=== PATIENT | female | born 1955 | race Caucasian/White ===

== ENCOUNTER 2016-11-09 16:18 | Emergency (ER) | payer OTHER ==
--- NOTE | 2016-11-09 16:54 | ED.PDOC ---
History of Present Illness - General Chief Complaint: Laceration Stated Complaint: Laceration to forehead Time Seen by Provider: 11/09/16 16:51 Source: patient Exam Limitations: no limitations - History of Present Illness Initial Comments: the patient is a 61-year-old female presenting to the emergency room secondary to a scalp laceration. She has a 1/2 inch scalp laceration with a minimal gape just above her hairline in her central forehead. It had apparently bled quite a bit before arrival. The patient had simply tripped and fallen and hit her head on the edge of a air-conditioner. No loss of consciousness. No neurological deficits. She does have a mild headache as would be expected. No bony crepitus underneath. No difficulties with ambulation. No nausea or vomiting. She is not on any blood thinners according to her. Timing/Duration: momentarily Severity: mild Improving Factors: nothing Worsening Factors: nothing Associated Symptoms: headaches Allergies/Adverse Reactions: Allergies Codeine Allergy (Verified 11/13/15 07:50) Other Causes itching dye Allergy (Uncoded 11/13/15 07:50) Rash Rash and makes her have a burning sensation inside Home Medications: Ambulatory Orders Lisinopril 10 mg PO DAILY #30 tab 11/02/14 Sertraline HCl [Zoloft] 100 mg PO DAILY 04/19/15 Temazepam 30 mg PO BEDTIME 04/19/15 amLODIPine BESYLATE [Norvasc] 10 mg PO DAILY 04/19/15 Gfxofnfdzztxh-Gboc-Bzfaqjhbhg [Fioricet] 1 ea PO Q8H PRN #21 tab 11/13/15 predniSONE [Prednisone] 20 mg PO DAILY #3 tab 11/13/15 Review of Systems - Review of Systems Constitutional: States: no symptoms reported EENTM: States: no symptoms reported Respiratory: States: no symptoms reported Cardiology: States: no symptoms reported Gastrointestinal/Abdominal: States: no symptoms reported Genitourinary: States: no symptoms reported Musculoskeletal: States: no symptoms reported Skin: States: see HPI Neurological: States: headache Endocrine: States: no symptoms reported All other Systems: No Change from Baseline Past Medical History (General) - Patient Medical History Hx Stroke: No Hx Congestive Heart Failure: No Hx Hypertension: Yes Hx Diabetes: No Hx Renal Disease: Yes - early stages Hx MRSA: No - Vaccination History Hx Tetanus, Diphtheria Vaccination: Yes Hx Influenza Vaccination: No - Social History Hx Tobacco Use: Yes - Quit 2009 Hx Alcohol Use: No Hx Substance Use: No Hx Substance Use Treatment: No Hx Depression: Yes - Female History Patient : No Family Medical History - Family History Mother Family History: Unknown Living Status: Physical Exam - Physical Exam General Appearance: Alert, Comfortable, No apparent distress Eye Exam: bilateral normal Ears, Nose, Throat: hearing grossly normal, normal ENT inspection, normal pharynx Neck: non-tender, full range of motion, supple Respiratory: chest non-tender, lungs clear, normal breath sounds, no respiratory distress, no accessory muscle use Cardiovascular/Chest: normal peripheral pulses, no edema Peripheral Pulses: radial,right: 2+, radial,left: 2+ Rectal Exam: deferred Extremity: normal range of motion, no pedal edema, normal capillary refill Neurologic: criminal attorney II-XII nml as tested, alert, normal mood/affect, oriented x 3 Skin Exam: other - see history of present illness Comments: Vital Signs - 24 hr 11/09/16 16:35 Temperature 97.5 F L Pulse Rate [ 88 Right Radial] Respiratory 18 Rate Blood Pressure 139/86 [Left Arm] O2 Sat by Pulse 94 L Oximetry Progress - Progress Progress: 11/09/16 16:54 the patient is a 61-year-old female that tripped and fell and sustained a 1/2 inch laceration to her central forehead just above the hairline. The wound is hemostatic at this time. no clinical evidence of concussion. It is cleaned with hydrogen peroxide. No repair is going to be required. She does have a mild headache that is consistent with the injury. She is not taking blood thinners. ER warnings were given for any worsening. She can apply a thin layer of antibiotic ointment one to 2 times daily for the next 3 days. Motrin can be used for discomfort. Departure - Departure Clinical Impression: Accidental laceration Disposition: Discharge to Home or Self Care Condition: Fair Departure Forms: ED Discharge - Pt. Copy, Patient Portal Self Enrollment Instructions: DI for Laceration Repair -- Simple Diet: regular diet Activity: increase activity as tolerated Referrals: Angela Blackburn NP [Primary Care Provider] - 1-2 Weeks Home Medications: Ambulatory Orders Lisinopril 10 mg PO DAILY #30 tab 11/02/14 Sertraline HCl [Zoloft] 100 mg PO DAILY 04/19/15 Temazepam 30 mg PO BEDTIME 04/19/15 amLODIPine BESYLATE [Norvasc] 10 mg PO DAILY 04/19/15 Fsptjghfclykc-Ufon-Dpxlqsheoc [Fioricet] 1 ea PO Q8H PRN #21 tab 11/13/15 predniSONE [Prednisone] 20 mg PO DAILY #3 tab 11/13/15 Additional Instructions: the patient is a 61-year-old female that tripped and fell and sustained a 1/2 inch laceration to her central forehead just above the hairline. The wound is hemostatic at this time. no clinical evidence of concussion. It is cleaned with hydrogen peroxide. No repair is going to be required. She does have a mild headache that is consistent with the injury. She is not taking blood thinners. ER warnings were given for any worsening. She can apply a thin layer of antibiotic ointment one to 2 times daily for the next 3 days. Motrin can be used for discomfort.
[2016-11-09 16:55] VITALS: BP 139/86; TEMP 97.5; O2SAT 94
[2016-11-09] MEDS ORDERED: NEOMYCIN-BACITRACIN-POLYMYXIN 0.9 GM UD TOP ONE (16:57)
== END 2016-11-09 17:00 | disposition home or self-care (01) ==
LOC: ER 16:18
DX: S01.01XA Laceration without foreign body of scalp, initial encounter (principal); N28.9 Disorder of kidney and ureter, unspecified; I10 Essential (primary) hypertension; F32.9 Major depressive disorder, single episode, unspecified; Z87.891 Personal history of nicotine dependence; Z88.6 Allergy status to analgesic agent; Z88.8 Allergy status to other drugs, medicaments and biological substances; Z79.899 Other long term (current) drug therapy; W01.198A Fall on same level from slipping, tripping and stumbling with subsequent striking against other object, initial encounter

== ENCOUNTER 2017-03-11 18:26 | Emergency (ER) | payer SELFPAY ==
--- NOTE | 2017-03-11 19:18 | ED.PDOC ---
History of Present Illness - General Chief Complaint: Respiratory Problem Stated Complaint: cough, chest congestion Time Seen by Provider: 03/11/17 18:58 Source: patient Exam Limitations: no limitations - History of Present Illness Initial Comments: Patient presents with a non-productive cough, sore throat, and ear congestion for four days. She denies fever. She says she sprayed oven tack cleaner four days ago and it started shortly after that. No similarly sick contacts. No other complaints. Timing/Duration: other - 4 days Severity: mild Improving Factors: nothing Worsening Factors: nothing Associated Symptoms: denies symptoms Allergies/Adverse Reactions: Allergies Codeine Allergy (Verified 11/13/15 07:50) Other Causes itching dye Allergy (Uncoded 11/13/15 07:50) Rash Rash and makes her have a burning sensation inside Home Medications: Ambulatory Orders Lisinopril 10 mg PO DAILY #30 tab 11/02/14 Sertraline HCl [Zoloft] 100 mg PO DAILY 04/19/15 Temazepam 30 mg PO BEDTIME 04/19/15 amLODIPine BESYLATE [Norvasc] 10 mg PO DAILY 04/19/15 Yzxzbdfsvkbww-Yxee-Mornactrhg [Fioricet] 1 ea PO Q8H PRN #21 tab 11/13/15 predniSONE [Prednisone] 20 mg PO DAILY #3 tab 11/13/15 Benzonatate Perles [Tessalon Perles] 100 mg PO Q8HR #20 cap 03/11/17 Review of Systems - Review of Systems Constitutional: States: no symptoms reported EENTM: States: see HPI Respiratory: States: see HPI Cardiology: States: no symptoms reported Gastrointestinal/Abdominal: States: no symptoms reported Genitourinary: States: no symptoms reported Musculoskeletal: States: no symptoms reported Skin: States: no symptoms reported Neurological: States: no symptoms reported Endocrine: States: no symptoms reported Hematologic/Lymphatic: States: no symptoms reported Past Medical History (General) - Patient Medical History Hx Stroke: No Hx Congestive Heart Failure: No Hx Hypertension: Yes Hx Diabetes: No Hx Gastroesophageal Reflux: Yes Hx Renal Disease: Yes - early stages Hx MRSA: No Surgical History: tonsillectomy, Hysterectomy, other - Vaccination History Hx Tetanus, Diphtheria Vaccination: Yes Hx Influenza Vaccination: No Hx Pneumococcal Vaccination: Yes - Social History Hx Tobacco Use: Yes - Quit 2009 Hx Alcohol Use: No Hx Substance Use: No Hx Substance Use Treatment: No Hx Depression: Yes - Female History Patient : No Family Medical History - Family History Mother Family History: Unknown Living Status: Physical Exam - Physical Exam General Appearance: Alert Ears, Nose, Throat: normal ENT inspection Neck: non-tender, full range of motion, supple Respiratory: lungs clear Cardiovascular/Chest: regular rate, rhythm Gastrointestinal/Abdominal: normal bowel sounds, non tender, soft Skin Exam: normal color Progress - Progress Progress: 03/11/17 20:42 CXR showed no acute disease. wbc 5.9. Likely viral URI. Patient given RX for Tessalon Perrles. Laboratory Tests 03/11/17 03/11/17 03/11/17 19:00 20:00 20:00 WBC 5.9 RBC 4.22 Hgb 11.5 L Hct 34.9 L MCV 82.6 MCH 27.2 MCHC 33.1 RDW 16.3 H Plt Count 211 MPV 7.9 Absolute Neuts (auto) 4.20 Absolute Lymphs (auto) 0.90 L Absolute Monos (auto) 0.60 Absolute Eos (auto) 0.20 Absolute Basos (auto) 0.00 Neutrophils % 71.0 Lymphocytes % 15.5 L Monocytes % 10.1 H Eosinophils % 3.0 Basophils % 0.4 Sodium 141 Potassium 3.4 L Chloride 114 H Carbon Dioxide 19 L Anion Gap 11.4 L BUN 26 H Creatinine 0.98 BUN/Creatinine Ratio 26.5 H Random Glucose 108 H Serum Osmolality 286.5 Calcium 9.0 Total Bilirubin 0.5 AST 25 ALT 20 Alkaline Phosphatase 75 Serum Total Protein 7.8 Albumin 3.6 Globulin 4.2 H Albumin/Globulin Ratio 0.9 L Group A Strep DNA Negative Departure - Departure Clinical Impression: Viral URI with cough Disposition: Discharge to Home or Self Care Condition: Good Departure Forms: ED Discharge - Pt. Copy, Patient Portal Self Enrollment Diet: resume usual diet Activity: increase activity as tolerated Referrals: Angela Blackburn NP [Primary Care Provider] - 1-2 Weeks Prescriptions: Benzonatate Perles [Tessalon Perles] 100 mg PO Q8HR #20 cap Home Medications: Ambulatory Orders Lisinopril 10 mg PO DAILY #30 tab 11/02/14 Sertraline HCl [Zoloft] 100 mg PO DAILY 04/19/15 Temazepam 30 mg PO BEDTIME 04/19/15 amLODIPine BESYLATE [Norvasc] 10 mg PO DAILY 04/19/15 Vfunprxazvplm-Ytbf-Wsbvtecahr [Fioricet] 1 ea PO Q8H PRN #21 tab 11/13/15 predniSONE [Prednisone] 20 mg PO DAILY #3 tab 11/13/15 Benzonatate Perles [Tessalon Perles] 100 mg PO Q8HR #20 cap 03/11/17 Additional Instructions: May use over the counter cough and cold formulas. Follow up with your primary doctor in 3 days if symptoms are not improving.
--- NOTE | 2017-03-11 20:39 | RAD ---
Chest two views INDICATION: Cough IMPRESSION: Normal heart size. Linear scarring or thickening along the minor fissure right mid to lower lung. No failure. 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 Lucency over the left hilum is related to the esophagus or the bronchus less likely. Remote healed left upper left posterior rib fracture. Electronically signed by: Carlos Balderas MD 03/11/2017 8:38 PM CDT Workstation: [id number]-
[2017-03-11] MEDS ORDERED: BENZONATATE PERLES 100 MG CAP PO ONE (20:42)
[2017-03-11 20:55] VITALS: BP 124/67; TEMP 98.3; O2SAT 97
== END 2017-03-11 20:55 | disposition home or self-care (01) ==
LOC: ER 18:26
DX: J06.9 Acute upper respiratory infection, unspecified (principal); Z88.6 Allergy status to analgesic agent; Z88.8 Allergy status to other drugs, medicaments and biological substances; Z79.899 Other long term (current) drug therapy; Z87.891 Personal history of nicotine dependence

== ENCOUNTER → 2017-08-24 | Outpatient (CLI) | payer OTHER | LOC: YCFC.O 16:07 | DX: I10 Essential (primary) hypertension (principal) ==

== ENCOUNTER 2018-04-26 13:46 | Inpatient (IN) | payer SELFPAY ==
--- NOTE | 2018-04-26 14:17 | ED.PDOC ---
History of Present Illness - General Chief Complaint: General Time Seen by Provider: 04/26/18 13:49 Source: patient, RN notes reviewed Additional Information: EVIDENTLY SHE HAS BEEN FEELING WEAK AND EATING ICE FOR THE PAST THREE MONTHS. LABS HAD BEEN ORDERED ABOUT 90 DAYS AGO BUT EVIDENTLY SHE DIDN'T HAVE ANY FUNDS UNTIL TODAY. HER NURSE PRACTITIONER CALLED HER AND TOLD HER TO COME TO THE ED SINCE HER HB WAS NOTED TO BE 6.1. SHE HAD A HN OF 11.7 IN Feb. SHE VOICES OCCASIONAL BLEEDING FROM THE VULVA WHENEVER SHE WIPES, MILD STREAKS ON THE TOILET PAPER. DENIES ANY RECTAL BLEEDING. THE PATIENT DENIES ANY WEIGHT LOSS - History of Present Illness Timing/Duration: other - THREE MONTHS Severity: moderate Improving Factors: nothing Worsening Factors: nothing Associated Symptoms: malaise, weakness Allergies/Adverse Reactions: Allergies Codeine Allergy (Verified 11/13/15 07:50) Other Causes itching dye Allergy (Uncoded 11/13/15 07:50) Rash Rash and makes her have a burning sensation inside Home Medications: Ambulatory Orders Lisinopril 10 mg PO DAILY #30 tab 11/02/14 Sertraline HCl [Zoloft] 100 mg PO DAILY 04/19/15 Temazepam 30 mg PO BEDTIME 04/19/15 amLODIPine BESYLATE [Norvasc] 10 mg PO DAILY 04/19/15 Myjwdsobqmlgd-Bwwv-Qvvmnthklb [Fioricet] 1 ea PO Q8H PRN #21 tab 11/13/15 predniSONE [Prednisone] 20 mg PO DAILY #3 tab 11/13/15 Benzonatate Perles [Tessalon Perles] 100 mg PO Q8HR #20 cap 03/11/17 Review of Systems - Review of Systems Constitutional: States: malaise, weakness EENTM: States: other - NOSE BLEEDS FOR SEVERAL MONTHS Respiratory: States: no symptoms reported Cardiology: States: no symptoms reported Gastrointestinal/Abdominal: States: no symptoms reported Genitourinary: States: no symptoms reported Musculoskeletal: States: back pain, joint pain, muscle pain Skin: States: no symptoms reported Neurological: States: no symptoms reported Endocrine: States: no symptoms reported Hematologic/Lymphatic: States: no symptoms reported, anemia Past Medical History (General) - Patient Medical History Hx Stroke: No Hx Congestive Heart Failure: No Hx Hypertension: Yes Hx Diabetes: No Hx Gastroesophageal Reflux: Yes Hx Renal Disease: Yes - early stages Hx MRSA: No - Vaccination History Hx Tetanus, Diphtheria Vaccination: Yes Hx Influenza Vaccination: No Hx Pneumococcal Vaccination: Yes - Social History Hx Tobacco Use: Yes - Quit 2009 Hx Alcohol Use: No Hx Substance Use: No Hx Substance Use Treatment: No Hx Depression: Yes - Female History Patient : No Family Medical History - Family History Mother Family History: Unknown Living Status: Physical Exam - Physical Exam General Appearance: Alert, No apparent distress, Well Developed, Well Groomed Eye Exam: bilateral normal, bilateral abnormal EOM Ears, Nose, Throat: normal ENT inspection, normal pharynx, other - ON NASAL SPECULLUM EXAM THERE IS A CRUSTED AREA ON THE FLOOR OF THE LEFT NOSTRIL. AREA THAT SHE VOICES HAS BEEN BLEEDING NOW FOR ABOUT THREE MONTHS. Neck: full range of motion Respiratory: chest non-tender, lungs clear, normal breath sounds, no respiratory distress, no accessory muscle use Cardiovascular/Chest: normal peripheral pulses, no edema, no gallop, no JVD, no murmur Peripheral Pulses: radial,right: 2+, radial,left: 2+ Gastrointestinal/Abdominal: normal bowel sounds, non tender, soft, no organomegaly, no pulsatile mass Rectal Exam: normal exam, normal rectal tone, other - STOOL IS DARK BROWN Back Exam: normal inspection, no CVA tenderness, no vertebral tenderness Extremity: normal range of motion, non-tender, normal inspection, no pedal edema , no calf tenderness Neurologic: no motor/sensory deficits, alert Skin Exam: pallor Lymphatic: no adenopathy Comments: VAGINAL EXAM -BIMANUAL IS PERFORMED. EXTERNAL GENITALIA OF NORMAL CHARACTERISTICS. BIMANUAL W/O ANY MASSES. NO BLOOD NOTED. Progress - Progress Progress: 04/26/18 15:30 04/26/18 15:32 I HAVE DISCUSSED THE CASE WITH LIONEL MAXWELL NP, WILL ADMIT FOR TRANSFUSION. Departure - Departure Clinical Impression: Anemia Qualifiers: Anemia type: iron deficiency Iron deficiency anemia type: unspecified iron deficiency Qualified Code(s): D50.9 - Iron deficiency anemia, unspecified Time of Disposition: 15:36 Disposition: Admit Patient Condition: Fair Referrals: Gaudencio Vu MD [Primary Care Provider] - 1-2 Weeks Home Medications: Ambulatory Orders Lisinopril 10 mg PO DAILY #30 tab 11/02/14 Sertraline HCl [Zoloft] 100 mg PO DAILY 04/19/15 Temazepam 30 mg PO BEDTIME 04/19/15 amLODIPine BESYLATE [Norvasc] 10 mg PO DAILY 04/19/15 Mlksksdierjed-Ewrq-Ddenkkpnll [Fioricet] 1 ea PO Q8H PRN #21 tab 11/13/15 predniSONE [Prednisone] 20 mg PO DAILY #3 tab 11/13/15 Benzonatate Perles [Tessalon Perles] 100 mg PO Q8HR #20 cap 03/11/17 Decision To Admit - Decistion To Admit Decision to Admit Reason: Admit from ER Decision to Admit Date: 04/26/18 Decision to Admit Time: 15:35
--- NOTE | 2018-04-26 14:46 | RAD ---
EXAM DESCRIPTION: Chest,1 View CLINICAL HISTORY: SOB COMPARISON: March 11, 2017 IMPRESSION: Single AP portable upright view of the chest shows mild enlargement of the cardiac silhouette without pulmonary vascular congestion. Lungs are normally aerated without acute appearing infiltrate or consolidation. Elevation of the right hemidiaphragm is seen. Mild linear scarring or atelectasis in the right infrahilar region is slightly improved from previous. 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
[2018-04-26] MEDS ORDERED: SODIUM CHLORIDE 0.9% 500ML 500 ML ONE (16:19)
--- NOTE | 2018-04-26 17:19 | HP ---
SUPERVISING PHYSICIAN: JOSH MENDEZ MD CHIEF COMPLAINT: Generalized weakness, shortness of breath. HISTORY OF PRESENT ILLNESS: Ms. Matthews is a 59 year-old female patient that notes she has not been feeling very well, being weak, short of breath and craving ice for a little over 3 months. She had some labs done initially about 90 days previous. They were ordered but she did not have the money to have them done and states she had the labs repeated as she had the funds and those labs were found to be significantly abnormal with hemoglobin of 6.1 and hematocrit 20.3. The Nurse Practitioner at the clinic called the patient at that time and had her report to the Emergency Room for further evaluation and workup. It was noted on the last lab in February 2017 her hematocrit was 11.7. She denied any gross blood per rectum or any nausea or vomiting but notes she has had some bleeding from her vulva when she wipes, there are streaks on the toilet paper but denies any rectal bleeding or any weight loss. She does note she has been having some epigastric discomfort over the 90-day period and at times had some what she referred to as dark, coffee- ground stools. Continuation of her workup in the Emergency Room showed she had a significant iron deficiency with iron of 16 and a TIBC of 41 with ferritin low at 5.9. Other chemistries include a TSH and Free T4 that were normal. She was showing a low potassium of 3 and a slight elevation of AST of 50. She did have one occult blood stool that was positive in the Emergency Room. Vital signs showed she was stable with a pulse of 102, blood pressure showing some elevation at 153/92 with respiratory rate 18, saturation 97% on room air. The patient also notes she has had a sore in her left nostril for well over a month or so that has been bleeding at times and she felt it was probably related to a sinus infection. She had type and cross for transfusion and is now going to be admitted to the medical/surgical floor for further ongoing treatment and evaluation. Further note on examination is that the patient has never had an extensive workup. She has never had a colonoscopy but she has a significant family history of cancers. She is admitted to the medical/surgical floor in stable condition. PAST MEDICAL HISTORY: 1. Depression. 2. Hypertension. PAST SURGICAL HISTORY: 1. Total hysterectomy approximately 40 years previously. 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 3. Tonsils and adenoids. CURRENT MEDICATIONS: 1. Benadryl 100 mg at bedtime. 2. Amlodipine. 3. Temazepam 30 mg at bedtime. 4. Zoloft 150 m g at bedtime. 5. Melatonin 10 mg at bedtime, ALLERGIES: CODEINE. FAMILY HISTORY: Mother at age 53 with cancer, she notes to the roof of the mouth. Dad from kidney cancer. He also had chronic obstructive pulmonary disease and cardiovascular disease. She has a brother who has cancer that is unknown. He has one sister who has liver failure and is anemic. She has 3 children. One son is healthy, second youngest daughter has congestive heart failure and thyroid cancer. Her youngest child has lupus. SOCIAL HISTORY: The patient lives in [place]. She is engaged. She is retired. 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 She did smoke for over 15 to 20 years, half pack a day but quit smoking 9 years previously. She notes she does drink occasional alcohol, she says one or two drinks. REVIEW OF SYSTEMS: CONSTITUTIONAL: Denies any fevers, chills but notes general malaise and increasing weakness. HEENT: She does have frequent nose bleeds on the left nostril. Has been going on for several months. Denies any nasal congestion, ear aches, sore throat. RESPIRATORY: Denies any coughing, wheezing, but does have some shortness of breath with exertion. CARDIOVASCULAR: Denies any chest pains, palpitations or syncopal episodes. GASTROINTESTINAL: Denies any nausea or vomiting, diarrhea, but notes that she has had some what she describes as coffee ground-like stools periodically for over the last 90 days with no bright red blood. GENITOURINARY: She denies any urinary symptoms, dysuria, hematuria or polyuria. MUSCULOSKELETAL: Notes that she has had some chronic back pain, just general malaise, joint pain and muscle pains. INTEGUMENT: Denies any rashes, sores other than the sore that she notes that is in her left nostril that has been present for well over 2 to 3 months that bleeds periodically. NEUROLOGIC: Denies any ataxia, seizures, paresthesias or syncopal episodes. HEMATOLOGIC: As noted in History of Present Illness, anemia with iron deficiency but denies any bleeding episodes, tender lymph glands. She does note that she has been craving ice and has a lot of restless legs. PHYSICAL EXAMINATION: VITAL SIGNS: On admission, temperature 98.8, pulse 102, blood pressure 153/92, respirations 18, satting 97% on room air. Admission weight is 75.3 kg. GENERAL: The patient appears to be comfortable in no acute distress. She is frail in appearance and appears to be well hydrated. HEENT: Tympanic membranes were clear bilaterally. Oropharynx was pink and moist with no lesions. Nasal exam shows a crusted area on the floor of the left nostril that she notes has been bleeding for about 3 months. NECK: Full range of motion, supple, non-tender. CHEST: Lungs were clear to auscultation bilaterally without rhonchi, wheezing or rales. CARDIOVASCULAR: Regular rate and rhythm without any appreciable gallops or rubs , but there is a systolic murmur heard 2/6. ABDOMEN: Soft, non-tender. Positive bowel sounds. No rebound tenderness. EXTREMITIES: No cyanosis, clubbing, or edema. Radial pulses were 2+ bilaterally. There was notable increase in size of the left leg compared to the right but no erythema. On the popliteal area there is a notable tender area that is consistent with probable Samaniego's cyst pending further evaluation with ultrasound. RECTAL: Exam was deferred. It was done in the E. R. by Dr. Wilson who noted normal rectal tone and dark stools on exam. BACK: Atraumatic with no CVA tenderness. No vertebral tenderness. NEUROLOGIC: She is alert and oriented times three. Cranial nerves II-XII are grossly intact. Facial features were symmetrical. Extraocular movements are within normal limits. There is no notable nystagmus. She is alert and oriented times three.. SKIN: She is pale, warm and dry. LYMPHATICS: No notable adenopathy. GENITOURINARY: Vaginal exam performed bimanual by Dr. Wilson noted to be normal external genital characteristics without any masses. No blood was noted. LABORATORY: CBC done in the clinic prior to admission showed white count 4,400 with hemoglobin initially of 6.1, hematocrit 20.3 with RBC indices indicating a microcytic/hypochromic presentation, platelets 185,000. Differential showed to be without a left shift. Coagulation studies showed PT 12.0, PTT 24.1, D-dimer was elevated at 1.12. Initial chemistries showed low potassium at 3.4, carbon dioxide 19, BUN 10, creatinine 0.89, serum osmolality 271, calcium 8.9, lactic acid 1.8, magnesium 1.3. Iron studies showed iron of 16, TIBC of 41, iron saturation 3.3 with a low ferritin at 5.9. Liver functions showed just a slightly elevated AST at 46. TSH was 2.02. She had 1 occult stool blood in the E. R. that was positive. RADIOLOGY: Chest x-ray single view chest showed lungs normally aerated with no acute-appearing infiltrate or consolidations. There was elevation of the right hemidiaphragm with mild linear scarring or atelectasis of the right infrahilar region which is slightly improved from previous on 03/11/17. Lower extremity ultrasound was pending of the left leg. CT of the chest was pending. ASSESSMENT: 1. Symptomatic anemia with a microcytic/hypochromic presentation consistent with iron deficiency anemia confirmed with an iron workup including low ferritin levels, uncertain etiology but possibly related to chronic blood loss from concern for a possible upper gastrointestinal bleed. 2. Elevated D-dimer, uncertain etiology, although the patient does have lower extremity left leg larger than the right with some pain on palpation awaiting further workup with ultrasound and CT of the chest. 3. Electrolyte imbalance to include hypokalemia with potassium initially of 3.4 on admission. 4. Elevated liver enzymes including AST, uncertain etiology. Continue to monitor. 5. Frequent nose bleeds notable on the left with an area on examination concerning for malignant changes needing close followup in the outpatient setting. PLAN: The patient is going to be admitted to the Medical/Surgical floor for initiation of transfusions with 2 units of packed red blood cells initially. Will recheck an H&H in the morning. Will follow occult bloods and should she show a drop dramatically on her H&H or any other signs or symptoms, certainly will need to get a consultation with GI, however GI is not, I do not believe, available in the morning and she will need close followup as an outpatient. Will replace her potassium as needed. Will hold off on any Lovenox until we can be reassured of acute GI bleed awaiting ultrasound of the lower extremity and a CT of the chest. Will resume her home medication as appropriate once they have been updated and verified. Until the patient can transition to outpatient management, will continue to monitor and treat as needed. #[id number] [facility]
[2018-04-26] MEDS ORDERED: ACETAMINOPHEN 325 MG TAB PO ONE (17:39)
[2018-04-26] MEDS ORDERED: diphenhydrAMINE HCL 50 MG/ML VIAL IV ONE (17:39)
[2018-04-26] MEDS ORDERED: SODIUM CHLORIDE 0.9% (FLUSH) 10 ML SYG IV PRN (17:40)
[2018-04-26] MEDS ORDERED: ONDANSETRON INJ 4 MG/2 ML VIAL IV PRN (17:40)
[2018-04-26] MEDS ORDERED: ACETAMINOPHEN 325 MG TAB PO PRN (17:40)
[2018-04-26] MEDS ORDERED: IV SET AND CAP CHANGE INJ INJ SCH (18:00)
[2018-04-26] MEDS ORDERED: SODIUM CHLORIDE 0.9% 500ML 500 ML IVS SCH (18:00)
[2018-04-26] MEDS ORDERED: PANTOPRAZOLE INJECTION 80 MG in SODIUM CHLORIDE 0.9% 100ML 80 ML IVPB ONE (19:44)
[2018-04-26] MEDS ORDERED: PANTOPRAZOLE SODIUM IV 40 MG VIAL ONE (20:20)
[2018-04-26] MEDS ORDERED: SODIUM CHLORIDE 0.9% 100ML 100 ML IVPB ONE (20:20)
[2018-04-26] MEDS ORDERED: TEMAZEPAM 15 MG CAP ONE (20:21)
[2018-04-26] MEDS ORDERED: POTASSIUM CHLORIDE 20 MEQ TAB PO ONE (20:51)
[2018-04-26] MEDS ORDERED: NON-FORMULARY MEDICATION 1 EA MIS (Temazepam [Temazepam] 30 MG) PO SCH (21:00)
[2018-04-26] MEDS ORDERED: NON-FORMULARY MEDICATION 1 EA MIS (Melatonin [Melatonin] 10 MG) PO SCH (21:00)
[2018-04-26] MEDS: SERTRALINE HCL 50 MG TAB PO SCH (21:37)
[2018-04-27] MEDS ORDERED: MAGNESIUM SULFATE PREMIX 2GM 2 GM in PREMIX BAG 1 BAG IVPB ONE (02:18)
[2018-04-27] MEDS ORDERED: MAGNESIUM SULFATE PREMIX 2GM 50 ML IVPB ONE (02:22)
[2018-04-27] MEDS: OMEPRAZOLE CAP 20 MG CAP PO SCH (06:25)
[2018-04-27] MEDS: amLODIPine BESYLATE 5 MG TAB PO SCH (08:44)
--- NOTE | 2018-04-27 12:22 | US ---
EXAM DESCRIPTION: Venous,Lower Extremity LT CLINICAL HISTORY: LLE edema and pain COMPARISON: None Available. TECHNIQUE: Left lower extremity venous duplex FINDINGS: Doppler evaluation of the left lower extremity deep veins was performed. Normal color flow is seen in the common femoral, superficial femoral, profunda femoral and greater saphenous veins. Normal flow is seen in the popliteal vein and veins below the knee in the calf. Normal venous compressibility and flow augmentation. Posterior popliteal Samaniego's cyst is large measuring 6.8 x 2.8 x 4.7 cm. IMPRESSION: Negative for evidence of deep venous thrombosis on left lower extremity venous Doppler sonogram. Large popliteal Samaniego's cyst. Electronically signed by: Lai Ybarra MD 04/27/2018 12:21 PM MECHANICAL SHOVEL OPERATOR
[2018-04-27] MEDS: SERTRALINE HCL 50 MG TAB PO SCH (19:49)
[2018-04-27] MEDS ORDERED: ALUM & MAG HYDROX-SIMETHICONE 30 ML UD PO PRN (20:45)
[2018-04-27] MEDS ORDERED: CALCIUM CARBONATE (ANTACID) 500 MG CHEWABLE TAB PO PRN (20:45)
[2018-04-27] MEDS ORDERED: MELATONIN 3 MG TAB PO SCH (21:00)
[2018-04-27] MEDS ORDERED: PANTOPRAZOLE SODIUM IV 40 MG VIAL IV SCH (21:00)
[2018-04-27] MEDS ORDERED: TEMAZEPAM 15 MG CAP PO SCH (21:00)
[2018-04-28] MEDS: OMEPRAZOLE CAP 20 MG CAP PO SCH (05:41)
[2018-04-28 06:58] VITALS: TEMP 98
[2018-04-28] MEDS ORDERED: SODIUM CHLORIDE 0.9% 500ML 0 ML ONE (07:44)
--- NOTE | 2018-04-28 08:36 | PN ---
DATE: 04/27/18 SUPERVISING PHYSICIAN: Erasmo Corea MD SUBJECTIVE: The patient received 2 units of packed red blood cells without any complications. She notes she feels a little bit better this morning. She has reported no additional stools. I was called last night that she was having some severe leg cramps along with some restless legs but responded well to magnesium replacement. OBJECTIVE: VITAL SIGNS: Temperature 98.3, pulse 79, blood pressure 130/77, respirations 16 , saturation 95% on room air. Weight 75.3 kg. I&O: Output has not been measured. GENERAL: This morning the patient appears a little bit more pink, she is alert and no quite as nervous. CHEST: Lungs clear to auscultation. HEART: Regular rate and rhythm with continued systolic murmur heard. ABDOMEN: Soft, non- tender, positive bowel sounds. EXTREMITIES: Without any cyanosis, clubbing, or edema, although the left leg is larger than the right and there is an area of discomfort to the popliteal area that is consistent with a Samaniego's cyst. [id number]: She is alert and oriented x3. LABORATORY: Repeat H&H showed hemoglobin 8.2 and hematocrit 26.8 and again at 1700 today, H&H showed essentially the same with 8.1 hemoglobin and 26.5 hematocrit. Chemistries: She did show a low magnesium of 1.3 but with replacement it normalized to 2.0. Electrolytes today show a potassium of 3.3, otherwise within normal limits. RADIOLOGY: Lower extremity ultrasound of the left leg was without any evidence of deep venous thrombosis. A large popliteal Samnaiego's cyst was noted. ASSESSMENT: 1. Symptomatic anemia with a microcytic/hypochromic presentation consistent with iron deficiency anemia confirmed with an iron workup including low ferritin levels, uncertain etiology but possibly related to chronic blood loss from concern for a possible upper gastrointestinal bleed. 2. Elevated D-dimer, uncertain etiology, although the patient does have lower extremity left leg larger than the right with some pain on palpation awaiting further workup with ultrasound and CT of the chest. 3. Electrolyte imbalance to include hypokalemia with potassium initially of 3.4 on admission. 4. Elevated liver enzymes including AST, uncertain etiology. Continue to monitor. 5. Frequent nose bleeds notable on the left with an area on examination concerning for malignant changes needing close followup in the outpatient setting. PLAN: Will repeat hemoglobin and hematocrit in the morning and again, should it show a significant decrease will call for a GI consultation and hopefully be able to transfer to [facility] for further evaluation with GI specialist. Given the concern for possible transfer tomorrow, I will need to defer GI workup and will make the patient n.p.o. overnight. If she stays stable, will anticipate discharging home tomorrow with continuation for further workup. Consideration for a third unit if showing no acute loss to insure the patient is no longer symptomatic prior to discharge. She will need to be started on some iron therapy at discharge as well as she will need a thorough workup soon after discharge to include a colonoscopy and further evaluation, possibly hematology and further evaluation of the questionable area in her left nostril with ENT. Again, will anticipate hopefully discharging tomorrow. Will await evaluation of hemoglobin and hematocrit. Until then, we will continue to monitor and treat as needed. #[id number] MTDD
[2018-04-28] MEDS: amLODIPine BESYLATE 5 MG TAB PO SCH (08:39)
[2018-04-28] MEDS ORDERED: PANTOPRAZOLE SODIUM IV 40 MG VIAL IV SCH (09:30)
[2018-04-28 10:10] VITALS: BP 144/83; O2SAT 93
--- NOTE | 2018-05-05 21:15 | DS ---
SUPERVISING PHYSICIAN: Erasmo Corea M.D. ADMISSION DIAGNOSIS: 1. Symptomatic anemia with a microcytic/hypochromic presentation consistent with iron deficiency anemia confirmed by iron workup with low ferritin levels, etiology uncertain but possibly related to chronic blood loss with concerns for possible upper gastrointestinal bleed. 2. Elevated D-dimer, uncertain etiology, although the patient does have lower extremity left leg larger than the right with pain on palpation, awaiting ultrasound on admission and past CT of the chest. 3. Electrolyte imbalance to include hypokalemia. 4. Elevated liver enzymes including AST, uncertain etiology. 5. Frequent nose bleeds notable on the left with an area on examination concerning for malignant changes needing close followup in the outpatient setting. DISCHARGE DIAGNOSIS: 1. Symptomatic anemia with a microcytic/hypochromic presentation consistent with iron deficiency anemia confirmed with an iron workup needing upper and lower scopes for concerns for gastrointestinal bleed. 2. Elevated D-dimer, uncertain etiology, with left lower extremity larger than the right with some palpation with left lower extremity workup with Doppler showing a large Samaniego's cyst but no deep venous thrombosis. Unable to perform CTA of the chest due to IV contrast allergy with the patient not showing any signs of acute pulmonary compromise. 3. Electrolyte imbalance to include hypokalemia with improvement with fluid. 4. Elevated liver enzymes including AST, uncertain etiology, improving with fluids. 5. History of frequent nose bleeds on the left with an area on examination concerning for possible malignant changes needing close followup in the outpatient setting. REASON FOR HOSPITALIZATION: Ms. Matthews is a 59 year-old female patient that notes she has not been feeling very well, being weak, short of breath and craving ice for a little over 3 months. She had some labs done initially about 90 days previous. They were ordered but she did not have the money to have them done and states she had the labs repeated as she had the funds and those labs were found to be significantly abnormal with hemoglobin of 6.1 and hematocrit 20.3. The Nurse Practitioner at the clinic called the patient at that time and had her report to the Emergency Room for further evaluation and workup. It was noted on the last lab in February 2017 her hematocrit was 11.7. She denied any gross blood per rectum or any nausea or vomiting but notes she has had some bleeding from her vulva when she wipes, there are streaks on the toilet paper but denies any rectal bleeding or any weight loss. She does note she has been having some epigastric discomfort over the 90-day period and at times had some what she referred to as dark, coffee- ground stools. Continuation of her workup in the Emergency Room showed she had a significant iron deficiency with iron of 16 and a TIBC of 41 with ferritin low at 5.9. Other chemistries include a TSH and Free T4 that were normal. She was showing a low potassium of 3 and a slight elevation of AST of 50. She did have one occult blood stool that was positive in the Emergency Room. Vital signs showed she was stable with a pulse of 102, blood pressure showing some elevation at 153/92 with respiratory rate 18, saturation 97% on room air. The patient also notes she has had a sore in her left nostril for well over a month or so that has been bleeding at times and she felt it was probably related to a sinus infection. She had type and cross for transfusion and is now going to be admitted to the medical/surgical floor for further ongoing treatment and evaluation. Further note on examination is that the patient has never had an extensive workup. She has never had a colonoscopy but she has a significant family history of cancers. She is admitted to the medical/surgical floor in stable condition. LABORATORY: Initial hemoglobin on admission was 6.1 and 20.3 with microcytic/ hypochromic RBC indices, platelet count 185,000. Differential showed to be without a left shift. After 2 units of packed red blood cells, initial hemoglobin went up to 8.2 and 26.8, but prior to discharge and transfer to [facility] it dropped to 7.8 and 25.4. Coagulation studies showed PT of 12.0 with PTT of 24.1, INR 1.12. Chemistries showed low potassium at 3.4, BUN 10, creatinine 0.89, calcium 8.9. Iron studies showed low iron of 16, TIBC of 41 with ferritin 5.9. TSH normal at 2.02. AST was elevated at 50. Prior to discharge potassium was showing to be 3.0. She had 1 occult stool blood that was positive. No microbiology specimens were submitted. RADIOLOGY: Chest x-ray initially in the E. R. per radiology interpretation showed lungs normally aerated without any acute-appearing infiltrate or consolidations. Just a slightly elevated right hemidiaphragm with some mild linear scarring, atelectasis in the right hilar region which is slightly improved from previous of 03/02/17. She also had a lower extremity Doppler of the left leg which showed negative evidence of deep venous thrombosis but a large popliteal Samaniego's cyst. HOSPITAL COURSE: Ms. Matthews was admitted from the [facility] on 04/27/18 for symptomatic anemia with severe iron deficiency and concerns for possible upper GI bleed. She was given 2 units of packed red blood cells and showed no complications, however was showing slowly dropping H&H. Given the patient's history and onset of symptoms, I contacted GI in [place], Dr. Mckeon, who recommended the patient be transferred for upper and lower GI series. The patient was accepted by the hospitalist and was to be transferred to [facility] for further evaluation and higher level of care with the services unavailable at [facility], including gastrointestinal specialist. She was showing to be stable. She was on a clear liquid diet and was showing to be hemodynamically stable. Vital signs at discharge showed temperature 98, pulse 80, blood pressure 144/83, respirations 93% on room air. PLAN: Ms. Matthews was transferred to [facility] in [place] to the services of the hospitalist for consultation with gastrointestinal services, accepted in stable condition. The patient was on a clear liquid diet. She was transferred by ground. DISPOSITION: Transferred to [facility]. Condition on discharge was stable but guarded. #[id number] MTDD
== END 2018-04-28 11:19 | disposition short-term general hospital (02) | DRG 812 ==
LOC: ER 13:46 → MS 17:17 → OBSVTOIN 17:17
PROVIDERS: ADMIT Nurse Practitioner Family; ATTEND Nurse Practitioner Family
PROC: 30253N1 (ICD-10-PCS; principal; 2018-04-26)
DX: D50.0 Iron deficiency anemia secondary to blood loss (chronic) (principal); M71.22 Synovial cyst of popliteal space [Baker], left knee; Z91.041 Radiographic dye allergy status; E87.6 Hypokalemia; R04.0 Epistaxis; F32.9 Major depressive disorder, single episode, unspecified; I10 Essential (primary) hypertension

== ENCOUNTER → 2018-04-26 | Outpatient (CLI) | payer OTHER | LOC: YCFC.O 11:46 | PROVIDERS: ATTEND Nurse Practitioner Family | DX: Z13.29 Encounter for screening for other suspected endocrine disorder (principal); I10 Essential (primary) hypertension ==

== ENCOUNTER → 2018-05-16 | Outpatient (CLI) | payer SELFPAY | LOC: LAB.O 16:17 | PROVIDERS: ATTEND Nurse Practitioner Family | DX: D50.0 Iron deficiency anemia secondary to blood loss (chronic) (principal); R06.02 Shortness of breath ==

== ENCOUNTER 2018-06-23 14:06 | Emergency (ER) | payer SELFPAY ==
--- NOTE | 2018-06-23 14:20 | ED.PDOC ---
History of Present Illness - General Chief Complaint: General Stated Complaint: weakness Time Seen by Provider: 06/23/18 14:19 Exam Limitations: no limitations - History of Present Illness Initial Comments: Liliana Matthews 63 y/o female ststed that she had been feeling weak,sleeping a lot and not having good appetite recently.She was admitted several months ago for anemia and was sent to [facility]-- and had work up done but unable to find out the cause of her anemia.denies hematemesis,melena,hemoptysis,chronic cough,weight loss.Also had been having both legs swelled up but no pain. Timing/Duration: other - see hpi Severity: moderate Improving Factors: nothing Worsening Factors: nothing Associated Symptoms: other - see hpi Allergies/Adverse Reactions: Allergies Codeine Allergy (Verified 04/26/18 18:04) Other Causes itching IV Contrast Allergy (Severe, Uncoded 04/26/18 21:34) Anaphylaxis per patient, SOB, throat closes dye Allergy (Uncoded 11/13/15 07:50) Rash Rash and makes her have a burning sensation inside Home Medications: Ambulatory Orders Sertraline HCl [Zoloft] 150 mg PO BEDTIME 04/19/15 Temazepam 30 mg PO BEDTIME 04/19/15 amLODIPine BESYLATE [Norvasc] 10 mg PO DAILY 04/19/15 Melatonin 20 mg PO BEDTIME 04/26/18 diphenhydrAMINE HCL [Benadryl] 100 mg PO BEDTIME 04/26/18 Fe Fumarate-Fe Polysaccharide- [Fusion 65-65-25-30 mg] 1 cap PO DAILY 06/23/18 Nitrofurantoin Monohydrate Mac [Macrobid] 100 mg PO BID 5 Days #10 capsule 06/23/18 Review of Systems - Review of Systems Constitutional: States: weakness EENTM: States: no symptoms reported Respiratory: States: no symptoms reported Cardiology: States: no symptoms reported Gastrointestinal/Abdominal: States: no symptoms reported Genitourinary: States: no symptoms reported Musculoskeletal: States: no symptoms reported Skin: States: no symptoms reported Neurological: States: no symptoms reported Endocrine: States: no symptoms reported Hematologic/Lymphatic: States: see HPI, anemia Past Medical History (General) - Patient Medical History Hx Seizures: No Hx Stroke: No Hx Asthma: No Hx of COPD: No Hx Congestive Heart Failure: No Hx Pacemaker: No Hx Hypertension: Yes Hx Diabetes: No Hx Gastroesophageal Reflux: Yes Hx Renal Disease: Yes - early stages Hx MRSA: No Surgical History: other - hysterectomy,renal artery aneurysm repair - Vaccination History Hx Tetanus, Diphtheria Vaccination: Yes Hx Influenza Vaccination: No Hx Pneumococcal Vaccination: Yes - Social History Hx Tobacco Use: Yes - Quit 2009 Hx Alcohol Use: No Hx Substance Use: No Hx Substance Use Treatment: No Hx Depression: Yes Hx Physical Abuse: No Hx Emotional Abuse: No - Female History Patient : No Family Medical History - Family History Mother Family History: Unknown Living Status: Physical Exam - Physical Exam General Appearance: Alert, Comfortable, No apparent distress Eye Exam: bilateral normal Ears, Nose, Throat: hearing grossly normal, normal ENT inspection Neck: non-tender, supple, normal inspection Respiratory: chest non-tender, lungs clear, normal breath sounds Cardiovascular/Chest: normal peripheral pulses, regular rate, rhythm, no murmur Peripheral Pulses: radial,right: 2+, radial,left: 2+ Gastrointestinal/Abdominal: normal bowel sounds, non tender, soft Back Exam: no CVA tenderness, no vertebral tenderness Extremity: no calf tenderness, pedal edema - 1+ bilaterall Neurologic: alert, oriented x 3 Skin Exam: normal color, warm/dry Lymphatic: no adenopathy Progress - Progress Progress: 06/23/18 14:39 Vital Signs - 8 hr 06/23/18 14:17 Temperature 98.7 F Pulse Rate [ 103 H left brachial] Respiratory 16 Rate Blood Pressure 163/99 [left brachial] O2 Sat by Pulse 95 Oximetry - Results/Orders Results/Orders: 06/23/18 16:11 URINE CULTURE W/COLONY COUNT Stat Laboratory Results - last 24 hr 06/23/18 06/23/18 06/23/18 14:58 14:58 14:58 WBC 4.9 RBC 3.37 L Hgb 8.8 L Hct 27.0 L MCV 80.1 L MCH 26.1 L MCHC 32.4 L RDW 25.7 H Plt Count 223 MPV 8.8 Absolute Neuts (auto) 3.70 Absolute Lymphs (auto) 0.70 L Absolute Monos (auto) 0.30 Absolute Eos (auto) 0.20 Absolute Basos (auto) 0.00 Neutrophils % 75.9 Lymphocytes % 13.4 L Monocytes % 6.8 Eosinophils % 3.2 Basophils % 0.7 RBC Morphology Plts pamela adequate PT 10.8 INR 1.08 PTT (SP) 23.9 Sodium 137 Potassium 3.2 L Chloride 105 Carbon Dioxide 22 Anion Gap 13.2 BUN 7 Creatinine 0.76 BUN/Creatinine Ratio 9.2 L Random Glucose 90 Serum Osmolality 271.3 L Calcium 8.5 Magnesium 1.3 L Total Bilirubin 0.5 Direct Bilirubin 0.1 Indirect Bilirubin 0.4 AST 55 H ALT 20 Alkaline Phosphatase 135 H LD Total Creatine Kinase 71 CK-MB (CK-2) 2.4 CK-MB (CK-2) % Not Reportable Troponin I 0.03 B-Natriuretic Peptide 234.0 H* Serum Total Protein 7.9 Albumin 3.0 L TSH Urine Color Urine Appearance Urine pH Ur Specific Pavo Urine Protein Urine Glucose (UA) Urine Ketones Urine Blood Urine Nitrite Urine Bilirubin Urine Urobilinogen Ur Leukocyte Esterase Urine RBC Urine WBC Ur Epithelial Cells Urine Bacteria Patient ABO/Rh Cancelled 06/23/18 06/23/18 14:58 16:11 WBC RBC Hgb Hct MCV MCH MCHC RDW Plt Count MPV Absolute Neuts (auto) Absolute Lymphs (auto) Absolute Monos (auto) Absolute Eos (auto) Absolute Basos (auto) Neutrophils % Lymphocytes % Monocytes % Eosinophils % Basophils % RBC Morphology PT INR PTT (SP) Sodium Potassium Chloride Carbon Dioxide Anion Gap BUN Creatinine BUN/Creatinine Ratio Random Glucose Serum Osmolality Calcium Magnesium Total Bilirubin Direct Bilirubin Indirect Bilirubin AST ALT Alkaline Phosphatase LD Total 164 Creatine Kinase CK-MB (CK-2) CK-MB (CK-2) % Troponin I B-Natriuretic Peptide Serum Total Protein Albumin TSH 2.15 Urine Color Yellow Urine Appearance Cloudy Urine pH 6.5 Ur Specific Pavo 1.015 Urine Protein Trace Urine Glucose (UA) Negative Urine Ketones Negative Urine Blood Trace-intact H Urine Nitrite Positive H Urine Bilirubin Negative Urine Urobilinogen 0.2 Ur Leukocyte Esterase Small H Urine RBC 0-1 Urine WBC 10-20 H Ur Epithelial Cells 3-5 Urine Bacteria 3+ H Patient ABO/Rh All test result findings discussed with patient. - EKG/XRAY/CT XRAY: chest - cardiomegaly no CHF Departure - Departure Clinical Impression: Other malaise and fatigue, Hypomagnesemia, Hypokalemia Anemia Qualifiers: Anemia type: unspecified type Qualified Code(s): D64.9 - Anemia, unspecified Urinary tract infection Qualifiers: Urinary tract infection type: site unspecified Hematuria presence: without hematuria Qualified Code(s): N39.0 - Urinary tract infection, site not specified Time of Disposition: 18:03 Disposition: Discharge to Home or Self Care Condition: Fair Departure Forms: ED Discharge - Pt. Copy, Patient Portal Self Enrollment Instructions: [employer] Referrals: Darby Whitt, BOARD FILLER [Primary Care Provider] - 1-2 Weeks Prescriptions: Nitrofurantoin Monohydrate Mac [Macrobid] 100 mg PO BID 5 Days #10 capsule Home Medications: Ambulatory Orders Sertraline HCl [Zoloft] 150 mg PO BEDTIME 04/19/15 Temazepam 30 mg PO BEDTIME 04/19/15 amLODIPine BESYLATE [Norvasc] 10 mg PO DAILY 04/19/15 Melatonin 20 mg PO BEDTIME 04/26/18 diphenhydrAMINE HCL [Benadryl] 100 mg PO BEDTIME 04/26/18 Fe Fumarate-Fe Polysaccharide- [Fusion 65-65-25-30 mg] 1 cap PO DAILY 06/23/18 Nitrofurantoin Monohydrate Mac [Macrobid] 100 mg PO BID 5 Days #10 capsule 06/23/18 Additional Instructions: OVER THE COUNTER MEDICATION that need to be taken-Combination Lshjthl-Cyxrdtvzl-yai D(Nature Made) one tablet daily;Potassium tablet one tablet daily for 2 weeks ;B-Complex vitamin-one tablet daily;Vitamin-c 250 mg one tablet daily;Keep appointment with your primary Md as scheduled ;Return to ER as needed
[2018-06-23 14:22] VITALS: TEMP 98.7
--- NOTE | 2018-06-23 14:40 | RAD ---
EXAM DESCRIPTION: Chest,1 View CLINICAL HISTORY: 63 years Female, weak COMPARISON: Previous study April 26, 2018 TECHNIQUE: AP portable chest. FINDINGS: Heart size is large with prominent central pulmonary vascularity. Linear density in the right hilar region and in the left pericardiac region may represent areas of scarring or fibrosis. Findings are similar to the previous study. Earlier chest x-ray from March 11, 2017 also showed the same perihilar and pericardiac densities. Vessels are prominent in the medial right lung base below the hilum. Right medial diaphragmatic eventration is incidentally noted. No pulmonary mass or worrisome nodule. No pneumothorax or pleural effusion. Bones are unremarkable. IMPRESSION: Large heart without congestive failure. Discoid atelectasis or linear scarring in the right perihilar and left pericardiac regions. Electronically signed by: Lai Ybarra MD 06/23/2018 2:39 PM [facility]
[2018-06-23] MEDS ORDERED: MAGNESIUM SULFATE PREMIX 2GM 2 GM in PREMIX BAG 1 BAG IVPB ONE (16:00)
[2018-06-23] MEDS ORDERED: POTASSIUM CHLORIDE 20 MEQ TAB PO ONE (16:00)
[2018-06-23] MEDS ORDERED: MAGNESIUM SULFATE PREMIX 2GM 50 ML IVPB ONE (16:06)
[2018-06-23] MEDS ORDERED: NITROFURANTOIN MONO (ER DISP) 100 MG CAP PO ONE (18:00)
[2018-06-23] MEDS ORDERED: NITROFURANTOIN MONOHYDRATE MAC 100 MG CAP PO ONE (18:00)
[2018-06-23 18:31] VITALS: BP 145/91; O2SAT 93
== END 2018-06-23 18:25 | disposition home or self-care (01) ==
LOC: ER 14:06
DX: D64.9 Anemia, unspecified (principal); N39.0 Urinary tract infection, site not specified; E87.6 Hypokalemia; E83.42 Hypomagnesemia; R53.1 Weakness; F32.9 Major depressive disorder, single episode, unspecified; K21.9 Gastro-esophageal reflux disease without esophagitis; N18.9 Chronic kidney disease, unspecified; I12.9 Hypertensive chronic kidney disease with stage 1 through stage 4 chronic kidney disease, or unspecified chronic kidney disease; Z79.899 Other long term (current) drug therapy; Z87.891 Personal history of nicotine dependence; Z88.5 Allergy status to narcotic agent; Z91.041 Radiographic dye allergy status
CPT/HCPCS: 36415; 71045; 80048; 80076; 81001; 82550; 82553; 83615; 83880; 84443; 84484; 85025; 85610; 85730; 87086; J3475

== ENCOUNTER 2018-08-04 08:46 | Inpatient (IN) | payer SELFPAY ==
--- NOTE | 2018-08-04 09:19 | ED.PDOC ---
History of Present Illness - General Chief Complaint: General Stated Complaint: hemoglobin 6.3 Time Seen by Provider: 08/04/18 08:47 Source: patient Exam Limitations: no limitations - History of Present Illness Initial Comments: FEELS WEAK. SHE WAS SEEN AT [facility] AND WAS CALLED TODAY WITH A HB OF 6.3. THEY CALLED HER AND TOLD HER TO COME TO [facility] ED. SHE IS KNOW TO HAVE RECURRENT ANEMIA AND SOMETIME LAST YEAR SHE HAD A HB OF 5.1 AND WAS TRANSFERRED TO . SHE WAS TREATED BY DR. WILCOX AND UNDERWENT EN EGD, COLONOSCOPY AND AND A TRANSINTESTINAL CAMERA DIAGNOSTIC AMONG OTHER TESTING. NO EVIDENCE OF THE ORIGIN OF THE ANEMIA. SHE THEN WAS REFERRED TO HEMATOLOGY AN OUTPATIENT. SHE DOESN'T HAVE INSURANCE AND THE ONLY WAY THAT SHE WOULD BE SEEN IF SHE HAD SOME TYPE OF INSURANCE. SHE HAS RECENTLY APPLIED FOR MEDICAID AND WILL BE ELIGIBLE FOR MEDICARE ON JANUARY OF THIS YEAR. Timing/Duration: 1 week Severity: moderate Improving Factors: nothing Worsening Factors: nothing Associated Symptoms: denies symptoms Allergies/Adverse Reactions: Allergies Codeine Allergy (Verified 08/04/18 10:35) Other Causes itching IV Contrast Allergy (Severe, Uncoded 08/04/18 10:35) Anaphylaxis per patient, SOB, throat closes dye Allergy (Uncoded 08/04/18 10:35) Rash Rash and makes her have a burning sensation inside Home Medications: Ambulatory Orders Sertraline HCl [Zoloft] 125 mg PO BEDTIME 04/19/15 amLODIPine BESYLATE [Norvasc] 10 mg PO DAILY 04/19/15 Melatonin 20 mg PO BEDTIME 04/26/18 diphenhydrAMINE HCL [Benadryl] 100 mg PO BEDTIME 04/26/18 Ibuprofen 200 mg PO DAILY PRN 08/04/18 Multiple Vitamin [Multi Vitamin] 2 tab PO DAILY 08/04/18 Trazodone HCl [Trazodone Hydrochloride] 50 mg PO DAILY 08/04/18 Review of Systems - Review of Systems Constitutional: States: malaise EENTM: States: no symptoms reported Respiratory: States: no symptoms reported Cardiology: States: no symptoms reported Gastrointestinal/Abdominal: States: no symptoms reported Genitourinary: States: no symptoms reported Musculoskeletal: States: no symptoms reported Skin: States: no symptoms reported Neurological: States: no symptoms reported Endocrine: States: no symptoms reported Hematologic/Lymphatic: States: no symptoms reported Past Medical History (General) - Patient Medical History Hx Seizures: No Hx Stroke: No Hx Asthma: No Hx of COPD: No Hx Congestive Heart Failure: No Hx Pacemaker: No Hx Hypertension: Yes Hx Thyroid Disease: No Hx Diabetes: No Hx Gastroesophageal Reflux: Yes Hx Renal Disease: Yes - early stages Hx MRSA: No Surgical History: tonsillectomy, Hysterectomy, other - Vaccination History Hx Tetanus, Diphtheria Vaccination: Yes Hx Influenza Vaccination: Yes Hx Pneumococcal Vaccination: Yes - Social History Hx Tobacco Use: Yes - Quit 2009 Hx Alcohol Use: No Hx Substance Use: No Hx Substance Use Treatment: No Hx Depression: Yes Hx Physical Abuse: No Hx Emotional Abuse: No - Female History Patient : No Family Medical History - Family History Mother Family History: Unknown Living Status: Physical Exam - Physical Exam General Appearance: Alert, Well Developed, Well Groomed, Well Hydrated, Well Nourished Eye Exam: bilateral normal, bilateral conjunctivae pale Ears, Nose, Throat: hearing grossly normal Neck: non-tender Respiratory: chest non-tender, lungs clear, normal breath sounds Cardiovascular/Chest: normal peripheral pulses, regular rate, rhythm, no edema, no gallop Peripheral Pulses: radial,right: 2+, radial,left: 2+ Gastrointestinal/Abdominal: normal bowel sounds, non tender, soft, no organomegaly Rectal Exam: deferred Back Exam: normal inspection Extremity: normal range of motion Neurologic: no motor/sensory deficits, oriented x 3 Progress - Progress Progress: 08/04/18 10:52 CASE DISCUSSED WITH IVETH RHOADES: ADMIT FOR TRANSFUSION AND FOR POTASSIUM REPLACEMENT - Results/Orders Results/Orders: 08/04/18 09:40 TYPE AND SCREEN Stat 08/04/18 10:36 KCl 40Meq/Ns [NS W/ KCL 40 meq/Liter] 1,000 ml IVS .QD 08/04/18 10:49 Transfuse Blood Products .PRN Laboratory Results WBC 5.3 K/mm3 (4.8-10.8) 08/04/18 09:36 RBC 2.52 M/mm3 (4.20-5.40) L 08/04/18 09:36 Hgb 6.1 gm/dL (12.0-16.0) L* 08/04/18 09:36 Hct 19.4 % (36.0-47.0) L 08/04/18 09:36 MCV 77.1 fl (81.0-99.0) L 08/04/18 09:36 MCH 24.0 pg (27.0-31.0) L 08/04/18 09:36 MCHC 31.2 g/dL (33.0-37.0) L 08/04/18 09:36 RDW 17.3 % (11.5-14.5) H 08/04/18 09:36 Plt Count 235 K/mm3 (130-400) 08/04/18 09:36 MPV 8.6 fl (7.40-10.4) 08/04/18 09:36 Absolute Neuts (auto) 4.10 K/uL (1.8-6.8) 08/04/18 09:36 Absolute Lymphs (auto) 0.70 K/uL (1.0-3.4) L 08/04/18 09:36 Absolute Monos (auto) 0.40 K/uL (0.2-0.8) 08/04/18 09:36 Absolute Eos (auto) 0.20 K/uL (0.0-0.4) 08/04/18 09:36 Absolute Basos (auto) 0.00 K/uL (0.0-0.1) 08/04/18 09:36 Neutrophils % 75.8 % (42.0-78.0) 08/04/18 09:36 Lymphocytes % 13.2 % (20.0-50.0) L 08/04/18 09:36 Monocytes % 7.7 % (2.0-9.0) 08/04/18 09:36 Eosinophils % 2.9 % (1.0-5.0) 08/04/18 09:36 Basophils % 0.4 % (0.0-2.0) 08/04/18 09:36 PT 11.4 SECONDS (9.0-10.9) H 08/04/18 09:36 INR 1.14 (0.9-1.15) 08/04/18 09:36 PTT (SP) 24.3 SECONDS (21.8-31.6) 08/04/18 09:36 Sodium 137 mmol/L (135-145) 08/04/18 09:36 Potassium 2.6 mmol/L (3.6-5.0) L 08/04/18 09:36 Chloride 109 mmol/L (101-111) 08/04/18 09:36 Carbon Dioxide 15 mmol/L (21-31) L 08/04/18 09:36 Anion Gap 15.6 (12-18) 08/04/18 09:36 BUN 13 mg/dL (7-18) 08/04/18 09:36 Creatinine 1.08 mg/dL (0.6-1.3) 08/04/18 09:36 BUN/Creatinine Ratio 12.0 (10-20) 08/04/18 09:36 Random Glucose 120 mg/dL (70-105) H 08/04/18 09:36 Serum Osmolality 275.1 mOsm/L (275-295) 08/04/18 09:36 Calcium 8.6 mg/dL (8.4-10.2) 08/04/18 09:36 Total Bilirubin 0.8 mg/dL (0.2-1.0) 08/04/18 09:36 AST 54 IU/L (10-42) H 08/04/18 09:36 ALT 21 IU/L (10-60) 08/04/18 09:36 Alkaline Phosphatase 120 IU/L (42-121) 08/04/18 09:36 Serum Total Protein 8.5 gm/dL (6.4-8.2) H 08/04/18 09:36 Albumin 3.0 g/dl (3.2-5.5) L 08/04/18 09:36 Globulin 5.5 gm/dL (2.3-3.5) H 08/04/18 09:36 Albumin/Globulin Ratio 0.5 (1.1-1.9) L 08/04/18 09:36 Departure - Departure Clinical Impression: Hypokalemia, Weakness Anemia Qualifiers: Anemia type: bone marrow failure Time of Disposition: 10:54 Disposition: Admit Patient Condition: Good Home Medications: Ambulatory Orders Sertraline HCl [Zoloft] 125 mg PO BEDTIME 04/19/15 amLODIPine BESYLATE [Norvasc] 10 mg PO DAILY 04/19/15 Melatonin 20 mg PO BEDTIME 04/26/18 diphenhydrAMINE HCL [Benadryl] 100 mg PO BEDTIME 04/26/18 Ibuprofen 200 mg PO DAILY PRN 08/04/18 Multiple Vitamin [Multi Vitamin] 2 tab PO DAILY 08/04/18 Trazodone HCl [Trazodone Hydrochloride] 50 mg PO DAILY 08/04/18 Decision To Admit - Decistion To Admit Decision to Admit Date: 08/04/18 Decision to Admit Time: 10:51
[2018-08-04] MEDS ORDERED: KCL 40MEQ/NS 1,000 ML IVS PRN (10:36)
--- NOTE | 2018-08-04 13:13 | HP ---
SUPERVISING PHYSICIAN: Donald Roberto MD CHIEF COMPLAINT: Weakness.and fatigue with some mild nausea. HISTORY OF PRESENT ILLNESS: This is a 63 year-old female who was seen at Urgent Care on the day prior to admission and she had a hemoglobin of 63, they called her and told her to go to the emergency department. She is known to have recurrent anemia. She was recently treated here in April for the same thing. She had gone to [facility] and Dr. Mckeon, wholesale buyer, performed an EGD and colonoscopy as well as transintestinal camera diagnostic. No evidence or origin of the anemia was found. She was referred to hematology as an outpatient but she does not have insurance yet and the only way she would be seen is if she had some type of insurance. She just applied for Medicaid and Medicare and she should be eligible in January of this year. In the Emergency Room, her vital signs were temperature of 97.1 with heart rate of 94, blood pressure 181/90, respiratory rate 20, 02 saturation 94% on room air. Lab was done. She had a WBC of 5.3 but her hemoglobin was 6.1, hematocrit 194. Coags were within normal limits. Chemistries showed a low potassium of 2.6. Magnesium 1.6. The remainder of her electrolytes were within normal limits. She did have an elevated AST of 54. Urinalysis was within normal limits. A type and cross was ordered for 2 units of blood and I received a call for admission to the hospital. PAST MEDICAL HISTORY: 1. Depression. 2. Hypertension. 3. Chronic anemia. PAST SURGICAL HISTORY: 1. Hysterectomy approximately 40 years. 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 3. Tonsillectomy and adenoidectomy. CURRENT MEDICATIONS: 1. Amlodipine. 2, Diphenhydramine. 3. Melatonin. 4. Trazodone. ALLERGIES: CONTRAST DYE. FAMILY HISTORY: Positive for kidney cancer, chronic obstructive pulmonary disease, cardiovascular disease, liver failure with anemia, congestive heart failure and thyroid cancer. SOCIAL HISTORY: The patient lives in [place]. She is retired. 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 She did smoke for approximately 20 years, one-half pack per day but quit smoking about 10 years ago. She does drink alcohol socially. She denies any illicit drug use. . REVIEW OF SYSTEMS: Positive for fatigue, negative for fever or chills. HEENT: Negative for ear pain, vision changes, sore throat or sinus symptoms. RESPIRATORY: Positive for shortness of breath, negative for coughing or wheezing. CARDIOVASCULAR: Negative for chest pain, palpitations, tachycardia. GI: Positive for nausea but no vomiting, no constipation or diarrhea. : Negative for hematuria, dysuria or polyuria. MUSCULOSKELETAL: Positive for mild lower back pain but negative for arthralgias and myalgias. INTEGUMENT: Negative for rashes or lesions. NEURO: Positive for lightheadedness, some dizziness, negative for seizures or headaches. PHYSICAL EXAMINATION: VITAL SIGNS: Temperature 97.5, heart rate 89, blood pressure 135/84, respiratory rate 18, 02 saturation 94% on room air. GENERAL: This is a 63 year-old female lying in her hospital bed. She is in no acute distress. HEENT: Normocephalic and atraumatic. Pupils are equal and reactive. NECK: Supple without mass. RESPIRATORY: Essentially clear to auscultation bilaterally. CHEST: Chest has equal rise and fall of the chest with inspiration and expiration. CARDIOVASCULAR: Regular rate and rhythm. She does have a mild systolic murmur. ABDOMEN: Soft, nondistended, non-tender. Bowel sounds are positive. EXTREMITIES: No cyanosis, clubbing, or edema. INTEGUMENT: She is very pale with several areas of ecchymosis noted that she bruises fairly easily but no lesions or rashes noted. LABORATORY: Labs and films are as per the history of present illness. ASSESSMENT: 1. Symptomatic anemia with a microcytic hypochromic presentation consistent with iron-deficiency anemia. Her hemoglobin was 6.1 on admission and she is in the process of receiving 2 units of packed red blood cells. 2. Electrolytes imbalance include hypokalemia with potassium level of 2.6 and hypomagnesemia with admitting level of 1.6. 3. History of elevated LFTs. Her AST is 54, unknown etiology, continue to monitor. 4. Hypertension. 5. History of chronic anemia with EGD and colonoscopy recently performed by Dr. Mckeon, wholesale buyer, in [place]. No acute findings per patient. 6. Restless leg syndrome. PLAN: We have admitted the patient to the hospital. She is in the process of receiving 2 units of packed red blood cells. I have ordered lab for in the morning and will follow her hemoglobin and hematocrit . She has also received some magnesium supplementation as well as some potassium supplementation. I will also monitor those on her followup labs. She is on a PPI for ulcer prophylaxis as well as Lovenox for DVT prophylaxis. She has no meds for her restless leg syndrome, so I will start her on gabapentin. We will continue to monitor closely and follow as needed. #[id number] [facility]
[2018-08-04] MEDS ORDERED: SODIUM CHLORIDE 0.9% (FLUSH) 10 ML SYG IV PRN (13:47)
[2018-08-04] MEDS ORDERED: ONDANSETRON INJ 4 MG/2 ML VIAL IV PRN (13:47)
[2018-08-04] MEDS ORDERED: DEXTROSE 50% 25 GM/50 ML SYG IV PRN (13:52)
[2018-08-04] MEDS ORDERED: GLUCAGON INJ 1 MG VIAL SUBCU PRN (13:52)
[2018-08-04] MEDS ORDERED: SODIUM CHLORIDE 0.9% 500ML 500 ML ONE (13:56)
[2018-08-04] MEDS ORDERED: IV SET AND CAP CHANGE INJ INJ SCH (14:00)
[2018-08-04] MEDS: PANTOPRAZOLE SODIUM IV 40 MG VIAL IV SCH (14:06)
[2018-08-04] MEDS ORDERED: FUROSEMIDE INJ 40 MG/4 ML VIAL IV ONE (14:14)
[2018-08-04] MEDS ORDERED: ACETAMINOPHEN 325 MG TAB PO ONE (14:14)
[2018-08-04] MEDS ORDERED: diphenhydrAMINE HCL 50 MG/ML VIAL IV ONE (14:14)
[2018-08-04] MEDS ORDERED: SODIUM CHLORIDE 0.9% 500ML 500 ML IVS SCH (14:30)
[2018-08-04] MEDS: INSULIN LISPRO 100 UNITS/ML PEN SUBCU SCH ×2 (17:02→21:03)
[2018-08-04] MEDS: diphenhydrAMINE HCL 25 MG CAP PO SCH (20:31)
[2018-08-04] MEDS: GABAPENTIN 300 MG CAP PO SCH (20:32)
[2018-08-04] MEDS: NON-FORMULARY MEDICATION 1 EA MIS (Melatonin [Melatonin] 20 MG) PO SCH (20:32)
[2018-08-04] MEDS: SERTRALINE HCL 50 MG TAB PO SCH (20:32)
[2018-08-04] MEDS: SODIUM CHLORIDE 0.9% (FLUSH) 10 ML SYG IV SCH (20:32)
[2018-08-05] MEDS: INSULIN LISPRO 100 UNITS/ML PEN SUBCU SCH ×4 (08:37→21:07)
[2018-08-05] MEDS ORDERED: ACETAMINOPHEN 325 MG TAB PO ONE (08:52)
[2018-08-05] MEDS ORDERED: diphenhydrAMINE HCL 50 MG/ML VIAL IV ONE (08:52)
[2018-08-05] MEDS ORDERED: FUROSEMIDE INJ 40 MG/4 ML VIAL IV ONE (08:52)
[2018-08-05] MEDS ORDERED: MAGNESIUM SULFATE PREMIX 2GM 2 GM in PREMIX BAG 1 BAG IVPB ONE (08:55)
[2018-08-05] MEDS ORDERED: POTASSIUM CHLORIDE 20 MEQ TAB PO ONE (08:55)
[2018-08-05] MEDS ORDERED: SODIUM CHLORIDE 0.9% 500ML 500 ML IVS SCH (09:00)
[2018-08-05] MEDS ORDERED: MAGNESIUM SULFATE PREMIX 2GM 50 ML IVPB ONE (09:06)
[2018-08-05] MEDS: traZODone HCL 50 MG TAB PO SCH (09:16)
[2018-08-05] MEDS: amLODIPine BESYLATE 5 MG TAB PO SCH (09:16)
[2018-08-05] MEDS: SODIUM CHLORIDE 0.9% (FLUSH) 10 ML SYG IV SCH ×2 (09:17→20:39)
[2018-08-05] MEDS: PANTOPRAZOLE SODIUM IV 40 MG VIAL IV SCH (15:42)
[2018-08-05] MEDS ORDERED: LOPERAMIDE CAP 2 MG CAP PO ONE (17:37)
[2018-08-05] MEDS: diphenhydrAMINE HCL 25 MG CAP PO SCH (20:39)
[2018-08-05] MEDS: GABAPENTIN 300 MG CAP PO SCH (20:39)
[2018-08-05] MEDS: SERTRALINE HCL 50 MG TAB PO SCH (20:39)
[2018-08-05] MEDS: NON-FORMULARY MEDICATION 1 EA MIS (Melatonin [Melatonin] 20 MG) PO SCH (20:51)
[2018-08-06] MEDS: amLODIPine BESYLATE 5 MG TAB PO SCH (09:00)
[2018-08-06] MEDS: traZODone HCL 50 MG TAB PO SCH (09:00)
[2018-08-06] MEDS ORDERED: POTASSIUM CHLORIDE 20 MEQ TAB PO ONE (10:13)
--- NOTE | 2018-08-06 13:03 | PN ---
DATE: 08/05/18 SUPERVISING PHYSICIAN: Donald Roberto M.D. SUBJECTIVE: The patient is lying in her bed. Her is at the bedside. He is quite concerned about her H&H. I have explained that she only went up 1.5 grams on her hemoglobin, that her hemoglobin and hematocrit today were 7.6 and 24.6. I will give her 2 additional units of blood today and he was pleased with that. She denies any shortness of breath, nausea, vomiting, chest pain. OBJECTIVE: VITAL SIGNS: Temperature 99, heart rate 94, blood pressure 119/60, respiratory rate 20, O2 sat 94% on room air. RESPIRATORY: Essentially clear to auscultation bilaterally. CARDIAC: Regular rate and rhythm. GASTROINTESTINAL: Abdomen is soft, nondistended, non-tender. Bowel sounds are positive. NEUROLOGIC: She is awake, alert and oriented times three. LABORATORY: WBCs are 6,400, hemoglobin 7.6, hematocrit 24.6. She does have a left shift on differential. Metabolic panel shows sodium 137, potassium 3.1, chloride 111, carbon dioxide 17, BUN 14, creatinine 1.02, random glucose 108, magnesium 1.6. AST is slightly elevated to 45 but improved from yesterday. Albumin 2.6, serum total protein 7.3. All other labs and films have been reviewed via the EMR. ASSESSMENT: 1. Symptomatic anemia with a microcytic hypochromic presentation consistent with iron-deficiency anemia. Her hemoglobin was 6.1 on admission and she is in the process of receiving 2 units of packed red blood cells. 2. Electrolytes imbalance include hypokalemia with potassium level of 2.6 and hypomagnesemia with admitting level of 1.6. 3. History of elevated LFTs. Her AST on admission is 54, today it is 45 of unknown etiology. Will continue to monitor. 4. Hypertension. 5. History of chronic anemia with EGD and colonoscopy recently performed by Dr. Mckeon, program engagement director, in [place]. No acute findings per patient. 6. Restless leg syndrome. PLAN: We will continue present supportive care. I have given her magnesium supplementation followed by some K-Dur. The gabapentin is working well for her RLS. She will receive 2 additional units of packed red blood cells. I will repeat her lab in the morning. She will need close followup with Zahar Villalpando at [facility] and need lab work done prior to her appointment with Zahra. Will continue to monitor closely and follow as needed. [facility][id number] [facility]
[2018-08-06] MEDS ORDERED: POTASSIUM CHLORIDE 20 MEQ TAB ONE (13:37)
[2018-08-06] MEDS: INSULIN LISPRO 100 UNITS/ML PEN SUBCU SCH ×4 (13:41→21:44)
[2018-08-06] MEDS: SODIUM CHLORIDE 0.9% (FLUSH) 10 ML SYG IV SCH ×2 (13:46→20:30)
[2018-08-06] MEDS: PANTOPRAZOLE SODIUM IV 40 MG VIAL IV SCH (15:50)
--- NOTE | 2018-08-06 16:11 | PN ---
DATE: 08/06/18 SUPERVISING PHYSICIAN: Donald Roberto M.D. SUBJECTIVE: The patient's H&H improved today. She was anticipating going home today, but shortly after I discussed her discharge plan with her she got up to go to the restroom. She accidentally had a bowel movement on the floor and she had a very difficult time getting to bed. The nurses cleaned her up and assisted her back to bed. They did say she was very weak in her lower legs and she says that sometimes she has some sciatic pain. I discontinued her discharge orders and we will keep her another night. At this time she denies any pain but her lower extremities feel very, very weak. She also says there is some burning in them and she feels very weak all over. She was able to walk from the bathroom back to her bed without incident but needed 2 person assistance. OBJECTIVE: VITAL SIGNS: Temperature 98.2, heart rate 97, blood pressure 138/80, respiratory rate 18, O2 sat 94% on room air. RESPIRATORY: Essentially clear to auscultation bilaterally. CARDIAC: Regular rate and rhythm. GASTROINTESTINAL: Abdomen is soft, nondistended, non-tender. Bowel sounds are positive. EXTREMITIES: There is normal range of motion but she does have a difficult time standing up straight. She mostly keeps her legs bent but she can walk to the bathroom. NEUROLOGIC: She is awake, alert and oriented times three. LABORATORY: WBCs are 6,300 with hemoglobin 9.2, hematocrit 29.4. Blood sugars have run between 95 and 269. Potassium was low this morning at 2.9 with carbon dioxide 18, calcium 8.1. AST is 45. All other labs and films have been reviewed via the EMR. ASSESSMENT: 1. Symptomatic anemia with a microcytic hypochromic presentation consistent with iron-deficiency anemia. Her hemoglobin was 6.1 on admission. She has received a total of 4 units of packed red blood cells. Hemoglobin and hematocrit this morning are 9.2 and 29.4. 2. Electrolytes imbalance, including hypokalemia with potassium level of 2.6. Today it is 2.9, and hypomagnesemia with admitting level of 1.6. Today after supplementation it is 1.8. 3. History of elevated LFTs. Her AST on admission is 54, it has come down to 45. Unknown etiology. Will continue to monitor. 4. Hypertension. 5. History of chronic anemia with EGD and colonoscopy recently performed by Dr. Mckeon, electronic security specialist, in [place]. No acute findings per patient. 6. Restless leg syndrome. 7. Weakness in her lower extremities may be due to remote history of sciatica pain as well as being bed bound for several weeks due to her weakness. PLAN: We will continue present supportive care. She received some potassium supplementation today. Will continue with the Gabapentin for her restless leg syndrome as that is working well. She may need to have it during the day if she is really having sciatic pain. I will also repeat her lab in the morning to check her H&H as well as her electrolytes and she will need close followup with Zahra Villalpando at [facility]. I have given her an order for lab work that is to be done the day prior to her appointment with Zahra. Will continue to monitor closely and follow as needed. #[id number] MTDD
[2018-08-06] MEDS: diphenhydrAMINE HCL 25 MG CAP PO SCH (20:31)
[2018-08-06] MEDS: SERTRALINE HCL 50 MG TAB PO SCH (20:31)
[2018-08-06] MEDS: NON-FORMULARY MEDICATION 1 EA MIS (Melatonin [Melatonin] 20 MG) PO SCH (20:32)
[2018-08-07] MEDS: INSULIN LISPRO 100 UNITS/ML PEN SUBCU SCH ×2 (07:43→11:56)
[2018-08-07] MEDS: traZODone HCL 50 MG TAB PO SCH (08:41)
[2018-08-07] MEDS: amLODIPine BESYLATE 5 MG TAB PO SCH (08:41)
[2018-08-07] MEDS: SODIUM CHLORIDE 0.9% (FLUSH) 10 ML SYG IV SCH (08:41)
[2018-08-07 10:01] VITALS: BP 134/81; TEMP 97.9; O2SAT 93
[2018-08-07] MEDS ORDERED: PNEUMOCOCCAL VACCINE 0.5 ML INJ IM ONE (12:16)
--- NOTE | 2018-08-09 09:14 | DS ---
SUPERVISING PHYSICIAN: Erasmo Corea MD ADMISSION DIAGNOSIS: 1. Symptomatic anemia with a microcytic hypochromic presentation consistent with iron-deficiency anemia. Her hemoglobin was 6.1 on admission and she is in the process of receiving 2 units of packed red blood cells. 2. Electrolytes imbalance include hypokalemia with potassium level of 2.6 and hypomagnesemia with admitting level of 1.6. 3. History of elevated liver function tests. Her AST is 54, unknown etiology, continue to monitor. 4. Hypertension. 5. History of chronic anemia with EGD and colonoscopy recently performed by Dr. Mckeon, soap slabber, in [place]. No acute findings per patient. 6. Restless leg syndrome. DISCHARGE DIAGNOSIS: 1. Symptomatic anemia, microcytic/hypochromic, consistent with iron-deficiency anemia, requiring transfusion of 4 units of packed red blood cells with initial hemoglobin of 6.1, stable and improved prior to discharge. 2. Electrolytes imbalance with hypokalemia and hypomagnesemia, improving with supplementation. 3. History of elevated liver functions, uncertain etiology. 4. Hypertension. 5. History of chronic anemia with EGD and colonoscopy recently performed by Dr. Mckeon, soap slabber in [place], with no acute findings per patient. 6. Restless leg syndrome. 7. Lower extremity weakness with remote history of sciatica pain as well as being bed bound for several weeks due to some weakness with disuse myopathies. REASON FOR HOSPITALIZATION: This is a 63-year-old female who was seen at Urgent Care on the day prior to admission and she had a hemoglobin of 6.3, they called her and told her to go to the emergency department. She is known to have recurrent anemia. She was recently treated here in April for the same thing. She had gone to [facility] and Dr. Mckeon, soap slabber, performed an EGD and colonoscopy as well as transintestinal camera diagnostic. No evidence or origin of the anemia was found. She was referred to hematology as an outpatient but she does not have insurance yet and the only way she would be seen is if she had some type of insurance. She just applied for Medicaid and Medicare and she should be eligible in January of this year. In the Emergency Room, her vital signs were temperature of 97.1 with heart rate of 94, blood pressure 181/90, respiratory rate 20, O2 saturation 94% on room air. Lab was done. She had a WBC of 5.3 but her hemoglobin was 6.1, hematocrit 194. Coags were within normal limits. Chemistries showed a low potassium of 2.6. Magnesium 1.6. The remainder of her electrolytes were within normal limits. She did have an elevated AST of 54. Urinalysis was within normal limits. A type and cross was ordered for 2 units of blood and the patient was admitted to the hospital for ongoing treatment and transfusion of blood in stable condition. LABORATORY: White count on admission was 5,300, at discharge 6,500. Hemoglobin initially was 6.1, hematocrit 19.4. Prior to discharge and after transfusion of 4 units of packed red blood cells, hemoglobin was 9.5 and hematocrit 29.7. Platelet count at discharge was 185,000. Differential was without a left shift. Coagulation studies showed PT 11.4, PTT 24.3. Chemistries initially on admission showed sodium 137, potassium 2.6. At discharge, sodium was normalized. Potassium was up to 2.3. Carbon dioxide was low at 15 and at discharge was 16 with normal chloride of 109 and at discharge 110. BUN 13 on admission and on discharge was 16. Creatinine initially was 1.08 and discharge was 1.1. Calcium 8.6 on admission, at discharge was 8.4. Magnesium was 1.6 on admission and after replacement, was up to 1.8 prior to discharge. Liver functions showed elevated AST initially at 54 and and therefore discharge was at 50. ALT was within normal limits at 21 on admission and discharge was 20. Alkaline phosphatase was also within normal limits on admission of 120 and at discharge, 101. Albumin was low initially at 3.0 and at discharge was 2.9. Urinalysis was within normal limits. MICROBIOLOGY: No specimens submitted. RADIOLOGY: No radiographic studies were performed while in the hospital. HOSPITAL COURSE: Ms. Matthews was admitted as noted on 08/04/18 for symptomatic anemia as above. She was transfused 4 units of packed red blood cells and had no complications post transfusion. On the day of discharge, which initially was to be 08/06/18, the patient was getting ready to leave and had an episode of lower extremity weakness. Therefore, she was kept an additional night and it was felt possibly this was related to the trazodone. On the morning of discharge, the patient was alert and oriented. Physical examination showed she was alert, oriented to herself, in no acute distress. Chest was clear to auscultation. Heart was regular rate and rhythm. Abdomen was soft, nontender, positive bowel sounds. Extremities were without any cyanosis, clubbing or edema. Neurologically, she was alert and oriented times 3. She had progressed well enough and showing stable hemoglobin and hematocrit that she could be discharged to continue with outpatient management. PLAN: The patient was to be discharged on 08/07/18 to home to be followed by [facility]. She was given a prescription by Shira Maxwell for Neurontin 300 mg at night and to continue the rest of her medications which included trazodone. She was to continue with a diet as tolerated, increase activity as tolerated and given instructions to return to the hospital should she have any concerning symptoms or return of her symptoms. DISPOSITION: The patient was discharged to the care of family. CONDITION AT DISCHARGE: Stable and improved. #[id number] [facility]
== END 2018-08-07 13:00 | disposition home or self-care (01) | DRG 812 ==
LOC: ER 08:46 → MS 13:05
PROVIDERS: ADMIT Nurse Practitioner Acute Care; ATTEND Nurse Practitioner Family
PROC: 30233N1 Transfusion of Nonautologous Red Blood Cells into Peripheral Vein, Percutaneous Approach (ICD-10-PCS; 2018-08-04)
PROC: 30233N1 Transfusion of Nonautologous Red Blood Cells into Peripheral Vein, Percutaneous Approach (ICD-10-PCS; 2018-08-05)
PROC: 3E0234Z Introduction of Serum, Toxoid and Vaccine into Muscle, Percutaneous Approach (ICD-10-PCS; principal; 2018-08-07)
DX: D50.9 Iron deficiency anemia, unspecified (principal); E87.6 Hypokalemia; E83.42 Hypomagnesemia; R29.898 Other symptoms and signs involving the musculoskeletal system; I10 Essential (primary) hypertension; G25.81 Restless legs syndrome; K21.9 Gastro-esophageal reflux disease without esophagitis; F32.9 Major depressive disorder, single episode, unspecified; Z91.041 Radiographic dye allergy status; Z23 Encounter for immunization; Z87.891 Personal history of nicotine dependence; Z88.5 Allergy status to narcotic agent; Z79.1 Long term (current) use of non-steroidal anti-inflammatories (NSAID); Z79.899 Other long term (current) drug therapy

== ENCOUNTER 2018-08-07 19:26 | Inpatient (IN) | payer SELFPAY ==
--- NOTE | 2018-08-07 20:49 | RAD ---
EXAM DESCRIPTION: Abdomen Series CLINICAL HISTORY: 63 years Female, ams COMPARISON: Chest x-ray June 23, 2018. FINDINGS: Lungs are clear. No significant pleural effusion. No pneumothorax. Mild elevation of the right hemidiaphragm demonstrated. Heart size appears mildly prominent. Aortic atherosclerosis is present. Bowel gas pattern appears unremarkable. No obvious dilated bowel loops. No free air. A few surgical clips in the abdomen are noted. Lung bases are clear. Degenerative changes of the spine noted. Degenerative changes of the hip noted. IMPRESSION: 1. No acute process in the chest. 2. Unremarkable bowel gas pattern. Electronically signed by: Chano Roper MD 08/07/2018 8:46 PM TOW TRUCK OPERATOR
[2018-08-07] MEDS ORDERED: LACTULOSE SYRUP 20 GM/30 ML UD PO ONE (21:47)
--- NOTE | 2018-08-07 22:23 | ED.PDOC ---
History of Present Illness - General Chief Complaint: Neuro Symptoms/Deficits Stated Complaint: altered mental status, onset 5 hours ago Time Seen by Provider: 08/07/18 20:02 Source: patient Exam Limitations: no limitations - History of Present Illness Initial Comments: the patient is a 63-year-old female presenting to the emergency room secondary to altered mental status. The patient was actually just released from the hospital today after having received 4 units of packed red blood cells secondary to ongoing chronic anemia that is felt to be iron deficiency in origin. She had recently been scoped with upper and lower endoscopy and had received pill endoscopy as well in the not too distant past without finding a source for the anemia. The patient had apparently been having some generalized weakness for several weeks that was attributed to the anemia which is certainly reasonable. However the patient received a dose of trazodone this morning and was watched for an hour to 2 hours and then allowed to go home. After about an hour after arriving home the patient started having some confusion. She only started trazodone about for 5 days ago secondary to difficulties with sleeping. She's been having some gait instability for several weeks and again was felt to be due to the anemia. She is still having that issue. Also corrected this admission were electrolyte abnormalities. The patient arrives here significantly confused. She does not really appear to be in any distress. She does have some bruises over her extremities due to falls. Extraocular movements are intact and oropharynx is clear. She does not appear to be markedly dehydrated. No evidence of any bleeding otherwise. She is pleasant though easily disoriented. She has a hard time remaining still. No significant headache at this time. No evidence of nuchal rigidity or meningeal signs. I see no evidence of any head trauma. She does have a distant history of liver disease of some form. Her significant other is not able to give any more information on this at this time. Timing/Duration: unsure Severity: moderate Improving Factors: nothing Worsening Factors: medication Associated Symptoms: malaise, weakness Allergies/Adverse Reactions: Allergies Codeine Allergy (Verified 08/07/18 19:55) Other Causes itching IV Contrast Allergy (Severe, Uncoded 08/07/18 19:55) Anaphylaxis per patient, SOB, throat closes dye Allergy (Uncoded 08/07/18 19:55) Rash Rash and makes her have a burning sensation inside Home Medications: Ambulatory Orders Sertraline HCl [Zoloft] 125 mg PO BEDTIME 04/19/15 amLODIPine BESYLATE [Norvasc] 10 mg PO DAILY 04/19/15 Melatonin 20 mg PO BEDTIME 04/26/18 diphenhydrAMINE HCL [Benadryl] 100 mg PO BEDTIME 04/26/18 Ibuprofen 200 mg PO DAILY PRN 08/04/18 Multiple Vitamin [Multi Vitamin] 2 tab PO DAILY 08/04/18 Trazodone HCl [Trazodone Hydrochloride] 50 mg PO DAILY 08/04/18 Gabapentin [Neurontin] 300 mg PO BEDTIME #30 cap 08/06/18 Review of Systems - Review of Systems Constitutional: States: malaise, weakness - generalized EENTM: States: no symptoms reported Respiratory: States: short of breath - with activity Cardiology: States: no symptoms reported Gastrointestinal/Abdominal: States: no symptoms reported, other - occasional episodes of fecal urge incontinence Genitourinary: States: no symptoms reported Musculoskeletal: States: no symptoms reported Skin: States: no symptoms reported Neurological: States: other - delirium Endocrine: States: no symptoms reported All other Systems: No Change from Baseline Past Medical History (General) - Patient Medical History Hx Seizures: No Hx Stroke: No Hx Dementia: No Hx Asthma: No Hx of COPD: No Hx Cardiac Disorders: No Hx Congestive Heart Failure: No Hx Pacemaker: No Hx Hypertension: Yes Hx Thyroid Disease: No Hx Diabetes: No Hx Gastroesophageal Reflux: No Hx Renal Disease: No Hx Cancer: No Hx of HIV: No Hx Hepatitis C: No Hx MRSA: No Surgical History: Hysterectomy - Vaccination History Hx Tetanus, Diphtheria Vaccination: Yes Hx Influenza Vaccination: Yes Hx Pneumococcal Vaccination: Yes - Social History Hx Tobacco Use: Yes - Quit 2009 Hx Alcohol Use: No Hx Substance Use: No Hx Substance Use Treatment: No Hx Depression: Yes Hx Physical Abuse: No Hx Emotional Abuse: No - Female History Patient : No Family Medical History - Family History Mother Family History: Unknown Living Status: Physical Exam - Physical Exam General Appearance: Alert, Other - delirious. Eye Exam: bilateral normal Ears, Nose, Throat: hearing grossly normal, normal pharynx Neck: full range of motion, supple Respiratory: lungs clear, normal breath sounds, no respiratory distress, no accessory muscle use Cardiovascular/Chest: normal peripheral pulses, no edema, tachycardia - borderline Peripheral Pulses: radial,right: 2+, radial,left: 2+, dorsalis pedis,right: 2+, dorsalis pedis,left: 2+ Gastrointestinal/Abdominal: soft, other - possible mild ascites. She is obese. No point tenderness to palpation. Rectal Exam: deferred Back Exam: no CVA tenderness, no vertebral tenderness Extremity: non-tender, normal inspection, no pedal edema, normal capillary refill Neurologic: smelter liner II-XII nml as tested, alert, other - mental status at times is fairly clear but then the patient becomes disoriented again. no focal neurological deficits at this time. Skin Exam: normal color Comments: Vital Signs - 24 hr 08/07/18 08/07/18 19:36 20:35 Temperature 99.6 F Pulse Rate [ 103 H 106 H monitor] Respiratory 20 20 Rate Blood Pressure 141/86 118/88 [Right Arm] O2 Sat by Pulse 96 96 Oximetry Progress - Progress Progress: 08/07/18 22:26 the patient is a 63-year-old female presenting to emergency room with delirium that is likely related to hepatic encephalopathy. Ammonia level was markedly elevated. The problem is likely made worse by the Zoloft, trazodone and melatonin that she takes. The patient is being started on oral lactulose. She will have to be dosed several times overnight until she starts having bowel movements. She will likely need to remain on at least a small dose of daily lactulose even after she clears. Obviously if she is not clear adequately with the lactulose then oral antibiotic options can be used and additional studies can be performed. Hemoglobin and hematocrit as well as electrolytes appear to be remaining fairly stable. vital signs are stable and the patient is easily aroused by voice. Admit for care of hepatic encephalopathy. Avoid doses of sedating medications for now. - Results/Orders Results/Orders: Laboratory Tests 08/07/18 08/07/18 08/07/18 20:11 20:21 20:21 WBC RBC Hgb Hct MCV MCH MCHC RDW Plt Count MPV Absolute Neuts (auto) Absolute Lymphs (auto) Absolute Monos (auto) Absolute Eos (auto) Absolute Basos (auto) Neutrophils % Lymphocytes % Monocytes % Eosinophils % Basophils % Normal RBC Morphology Sodium 138 Potassium 3.4 L Chloride 111 Carbon Dioxide 17 L Anion Gap 13.4 BUN 17 Creatinine 1.03 BUN/Creatinine Ratio 16.5 Random Glucose 92 Serum Osmolality 276.9 Lactic Acid 1.0 Calcium 8.9 Magnesium Total Bilirubin 1.4 H AST 65 H ALT 24 Alkaline Phosphatase 107 Ammonia Creatine Kinase 568 H* CK-MB (CK-2) 6.8 H* CK-MB (CK-2) % 1.20 Troponin I 0.06 H B-Natriuretic Peptide 221.0 H* Serum Total Protein 8.3 H Albumin 3.0 L Globulin 5.3 H Albumin/Globulin Ratio 0.6 L Amylase 42 Lipase 48 TSH Urine Color Urine Appearance Urine pH Ur Specific Marshall Urine Protein Urine Glucose (UA) Urine Ketones Urine Blood Urine Nitrite Urine Bilirubin Urine Urobilinogen Ur Leukocyte Esterase Urine RBC Urine WBC Ur Epithelial Cells Urine Bacteria Urine Opiates Screen Negative Urine Barbiturates Negative Ur Phencyclidine Scrn Negative U Amphetamin/Meth Scrn Negative U Benzodiazepines Scrn Negative U Cocaine Metab Screen Negative U Cannabinoids Screen Negative Ethyl Alcohol 08/07/18 08/07/18 08/07/18 20:21 20:21 20:21 WBC 7.5 RBC 3.67 L Hgb 9.7 L Hct 30.1 L MCV 81.9 MCH 26.3 L MCHC 32.1 L RDW 20.1 H Plt Count 199 MPV 8.2 Absolute Neuts (auto) 6.10 Absolute Lymphs (auto) 0.70 L Absolute Monos (auto) 0.60 Absolute Eos (auto) 0.10 Absolute Basos (auto) 0.00 Neutrophils % 81.7 H Lymphocytes % 9.0 L Monocytes % 8.0 Eosinophils % 0.7 L Basophils % 0.6 Normal RBC Morphology 1+aniso Sodium Potassium Chloride Carbon Dioxide Anion Gap BUN Creatinine BUN/Creatinine Ratio Random Glucose Serum Osmolality Lactic Acid Calcium Magnesium 1.9 Total Bilirubin AST ALT Alkaline Phosphatase Ammonia 125 H* Creatine Kinase CK-MB (CK-2) CK-MB (CK-2) % Troponin I B-Natriuretic Peptide Serum Total Protein Albumin Globulin Albumin/Globulin Ratio Amylase Lipase TSH 1.62 Urine Color Urine Appearance Urine pH Ur Specific Marshall Urine Protein Urine Glucose (UA) Urine Ketones Urine Blood Urine Nitrite Urine Bilirubin Urine Urobilinogen Ur Leukocyte Esterase Urine RBC Urine WBC Ur Epithelial Cells Urine Bacteria Urine Opiates Screen Urine Barbiturates Ur Phencyclidine Scrn U Amphetamin/Meth Scrn U Benzodiazepines Scrn U Cocaine Metab Screen U Cannabinoids Screen Ethyl Alcohol 08/07/18 08/07/18 20:21 20:57 WBC RBC Hgb Hct MCV MCH MCHC RDW Plt Count MPV Absolute Neuts (auto) Absolute Lymphs (auto) Absolute Monos (auto) Absolute Eos (auto) Absolute Basos (auto) Neutrophils % Lymphocytes % Monocytes % Eosinophils % Basophils % Normal RBC Morphology Sodium Potassium Chloride Carbon Dioxide Anion Gap BUN Creatinine BUN/Creatinine Ratio Random Glucose Serum Osmolality Lactic Acid Calcium Magnesium Total Bilirubin AST ALT Alkaline Phosphatase Ammonia Creatine Kinase CK-MB (CK-2) CK-MB (CK-2) % Troponin I B-Natriuretic Peptide Serum Total Protein Albumin Globulin Albumin/Globulin Ratio Amylase Lipase TSH Urine Color Yellow Urine Appearance Clear Urine pH 6.0 Ur Specific Marshall 1.015 Urine Protein 30 Urine Glucose (UA) Negative Urine Ketones 15 H Urine Blood Moderate H Urine Nitrite Negative Urine Bilirubin Small H Urine Urobilinogen 0.2 Ur Leukocyte Esterase Trace H Urine RBC 10-20 H Urine WBC 5-10 H Ur Epithelial Cells 5-10 Urine Bacteria 1+ Urine Opiates Screen Urine Barbiturates Ur Phencyclidine Scrn U Amphetamin/Meth Scrn U Benzodiazepines Scrn U Cocaine Metab Screen U Cannabinoids Screen Ethyl Alcohol < 5.40 Departure - Departure Clinical Impression: Acute hepatic encephalopathy Disposition: Admit Patient Departure Forms: ED Discharge - Pt. Copy, Patient Portal Self Enrollment Referrals: Darby Whitt NP [Primary Care Provider] - 1-2 Weeks Home Medications: Ambulatory Orders Sertraline HCl [Zoloft] 125 mg PO BEDTIME 04/19/15 amLODIPine BESYLATE [Norvasc] 10 mg PO DAILY 04/19/15 Melatonin 20 mg PO BEDTIME 04/26/18 diphenhydrAMINE HCL [Benadryl] 100 mg PO BEDTIME 04/26/18 Ibuprofen 200 mg PO DAILY PRN 08/04/18 Multiple Vitamin [Multi Vitamin] 2 tab PO DAILY 08/04/18 Trazodone HCl [Trazodone Hydrochloride] 50 mg PO DAILY 08/04/18 Gabapentin [Neurontin] 300 mg PO BEDTIME #30 cap 08/06/18 Decision To Admit - Decistion To Admit Decision to Admit Reason: Medical Nature Decision to Admit Date: 08/07/18 Decision to Admit Time: 22:29
[2018-08-08] MEDS ORDERED: ONDANSETRON INJ 4 MG/2 ML VIAL IV PRN (00:51)
[2018-08-08] MEDS ORDERED: cefTRIAXone SODIUM 1 GM VIAL IM SCH (01:00)
[2018-08-08] MEDS ORDERED: SODIUM CHL 0.9% 50ML MIN-BAG+ 50 ML IVPB ONE ×2 (01:42→19:36)
[2018-08-08] MEDS ORDERED: cefTRIAXone SODIUM 1 GM VIAL ONE ×2 (01:42→19:36)
[2018-08-08] MEDS: cefTRIAXone SODIUM 1 GM in SODIUM CHL 0.9% 50ML MIN-BAG+ 50 ML IVPB SCH (01:47)
[2018-08-08] MEDS: IV SET AND CAP CHANGE INJ INJ SCH (02:48)
[2018-08-08] MEDS: LACTULOSE SYRUP 20 GM/30 ML UD PO SCH (09:30)
[2018-08-08] MEDS: amLODIPine BESYLATE 5 MG TAB PO SCH (09:30)
[2018-08-08] MEDS: KCL 20MEQ/0.45% NS 1,000 ML IVS PRN (11:31)
--- NOTE | 2018-08-08 11:42 | US ---
EXAM DESCRIPTION: Liver: ULTRASOUND. CLINICAL HISTORY: Acute hepatic encephalopathy. COMPARISON: Abdomen radiograph 08/07/2018. TECHNIQUE: Transabdominal scannin-dimensional and Doppler modes. FINDINGS: Gallbladder: May be contracted No fluid around the gallbladder. Thickened wall 3.3 millimeters with edema centrally. Non-tender with transducer pressure. Common bile duct: caliber 3.0 mm within normal limits. Liver: Coarse echogenicity; contour liver capsule slightly lobulated. where seen. No fluid around the liver. Intrahepatic biliary ducts normal caliber. Doppler hepatopedal flow portal vein. Hepatofugal flow hepatic vein. Both veins normal caliber. Long axis right lobe 16.8 Pancreas: Partially by intestinal gas, grossly normal. Duct not seen. Right kidney: long axis measures 7.7 cm. Increased cortical echogenicity, similar to liver. 6 mm cortical thickness. No hydronephrosis. No large radiodense stones. Abdominal Aorta: Normal caliber proximal and mid segment. Distal segment obscured by intestinal gas. IMPRESSION: 1. Liver mildly enlarged with coarse echogenicity, slightly lobulated capsule, normal intrahepatic ducts, normal hepatic vein and portal vein flow direction. Most likely cirrhosis. Moderate ascites. 2. Gallbladder small and contracted with thickened wall most likely due to ascites. No definite stones or sludge. Normal caliber of the common bile duct. Pancreas grossly normal. 3. Small kidney with significantly thinned cortex with increased echogenicity indicating chronic condition. No hydronephrosis and no large radiodense stones. 4. Normal caliber of the IVC and proximal and mid abdominal aorta. Electronically signed by: Artur Santos MD 08/08/2018 11:39 AM RESEARCH ADMINISTRATOR
--- NOTE | 2018-08-08 14:52 | HP ---
SUPERVISING PHYSICIAN: Erasmo Corea MD CHIEF COMPLAINT: Confusion, weakness. HISTORY OF PRESENT ILLNESS: Ms. Matthews is a 63-year-old, female patient that just was in the hospital at [facility] for symptomatic anemia and received 4 units of packed red blood cells. She was discharged on 08/07/18. Shortly after going home, she had an episode of weakness and loss of bowel and was brought back in to the Emergency Room by EMS at the request of the patient's significant other. It is noted that she had recently had an upper and lower endoscopy and received pill endoscopy without any findings of source of anemia. She had been having generalized weakness over the last week and was found to be having symptomatic anemia and at some point had been started on trazodone for insomnia and restless legs. On the day of discharge, she had actually been given trazodone in the morning 2 hours prior to discharge, went home and was doing fine until she again had some confusion in the afternoon. She noted she had been having some gait instability for several weeks and was made worse since her anemia. This was all corrected on the previous admission as well as her electrolytes. At home, again, the patient was found to be significantly confused and was brought back to the Emergency Room. On exam in the Emergency Room, the patient was significantly confused, but no acute distress. There was no evidence of bleeding. She was well hydrated. She was very pleasant, but easily disoriented. She was also noted to be very active and unable to stay still. She had no significant headaches, no evidence of nuchal rigidity or meningeal signs or any head trauma. It is noted she does have a history of liver disease which is still being worked up as an outpatient. The significant other that was with the patient was unable to give any further information at time of admission. Workup at that time, vital signs showed temperature initially of 99.6, pulse 103, blood pressure 141/86, oxygen saturation 96% on room air, respirations 20. Repeat laboratory studies showed white count 7.5, hemoglobin 9.7, hematocrit 30.1, platelet count 191,000. Differential did show a slight left shift. Coagulation studies showed PT 12.2, INR 25.3. Chemistries revealed potassium 3.4, carbon dioxide 17, BUN 17, creatinine 1.03. Liver functions showed AST 65, ALT 24, alkaline phosphatase 107. CK showed elevation of 568 as well as troponin 0.06, BNP 221. Albumin 3. Amylase and lipase were both normal. TSH normal at 1.62. Calcium 8.9, lactic acid normal at 1.0. Ammonia level was also run and was elevated at 125. Urinalysis on admission did show 15 ketone, moderate amount of blood with small bilirubin. Microscopic revealed 10 to 20 RBCs, 5 to 10 WBCs, 5 to 10 epithelials and 1+ bacteria. Toxicology screen was negative for all substances tested as well as alcohol. Hepatitis panel was pending at time of admission. A flu swab was collected which was negative by PCR for A and B. She had an abdominal x-ray initially and per radiologic interpretation there was no acute process in the chest and unremarkable bowel gas pattern. Given that the patient was having significant confusion and elevated ammonia, it was felt the patient was showing significant hepatic encephalopathy, possibly secondary to trazodone. Therefore, she was given lactulose in the Emergency Room and then admitted for further evaluation and treatment. PAST MEDICAL HISTORY: 1. Depression. 2. Hypertension. 3. Chronic anemia. PAST SURGICAL HISTORY: 1. Hysterectomy approximately 40 years. 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 3. Tonsillectomy and adenoidectomy. CURRENT MEDICATIONS: 1. Amlodipine. 2, Diphenhydramine. 3. Melatonin. 4. Trazodone. ALLERGIES: CONTRAST DYE. FAMILY HISTORY: Positive for kidney cancer, chronic obstructive pulmonary disease, cardiovascular disease, liver failure with anemia, congestive heart failure and thyroid cancer. SOCIAL HISTORY: The patient lives in [place]. She is retired. 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 She did smoke for approximately 20 years, one-half pack per day but quit smoking about 10 years ago. She does drink alcohol socially. She denies any illicit drug use. REVIEW OF SYSTEMS: CONSTITUTIONAL: Positive for general malaise, weakness. HEENT: Negative for sore throats, earaches, nasal congestion, headaches, visual disturbances. RESPIRATORY: Positive for shortness of breath with any exertional effort, but negative for any wheezing or coughing. CARDIOVASCULAR: Negative for chest pain, palpitations or syncopal episodes. GASTROINTESTINAL: Negative for nausea, vomiting. Positive for occasional episodes of large fecal incontinence with no obvious blood per rectum. Negative for abdominal pain. GENITOURINARY: Negative for dysuria, hematuria, polyuria. MUSCULOSKELETAL: Negative for arthralgias. NEUROLOGIC: Positive for delirium. Negative for syncopal episodes, ataxia, seizures or other focal neurologic deficits. PHYSICAL EXAMINATION: VITAL SIGNS: Pulse 103. Blood pressure 141/86. Respirations 20. Oxygen saturation 96% in room air. When the patient was admitted to the Medical/Surgical Floor, he was noted to have a low grade fever of 100.4. Admission weight 78.4 kg. GENERAL: The patient is resting comfortably on exam, easily aroused, but obviously confused. Once aroused, mumbling and not making any notable words that are understandable. HEENT: Tympanic membranes clear bilaterally. Oropharynx is pink, moist without any lesions. NECK: Supple, nontender with full range of motion. No jugular venous distention noted. RESPIRATORY: Lungs clear to auscultation bilaterally without any rhonchi, wheezes, or rales. CARDIOVASCULAR: Regular rate and rhythm without any appreciable murmurs, gallops, or rubs. ABDOMEN: Soft, mildly distended, obese, but no rebound tenderness. No peritoneal signs. BACK: No significant tenderness, no vertebral tenderness. EXTREMITIES: There is no cyanosis, clubbing or edema. NEUROLOGIC: Cranial nerves II-XII are grossly intact. Mental status at time of exam was limited due to the patient being disoriented, but no obvious focal deficits were noted. LABORATORY: White count 7,500, hemoglobin 9.7, hematocrit 30.1, platelet count 199,000. Differential does show a left shift. Coagulation studies PT 12.2, PTT 25.3. Chemistries initially showed sodium 138, potassium 3.4, BUN 17, carbon dioxide 17, anion gap normal at 13.4, BUN 17, creatinine 1.03, glucose 92, lactic acid 1.0, calcium 8.9, magnesium 1.9, bilirubin elevated at 1.4, AST 65, ALT 24, alkaline phosphatase 107. CK elevated at 568, troponin up to 0.06, BNP elevated at 221. Amylase and lipase were both normal. TSH 1.62. Urinalysis initially showed 15 ketones, moderate amount of blood, small amount of bilirubin, trace leukocyte esterase with microscopic showing 10 to 20 WBCs, 5 to 10 WBCs, 50 to 10 epithelials and 1+ bacteria. Urine drug screen was negative for all substances tested as well as alcohol. Hepatitis panel was pending at time of admission. MICROBIOLOGY: Flu swab for influenza A and B by PCR that was negative. Urine culture pending. RADIOLOGY: Abdominal x-ray in the Emergency Room per radiologic interpretation showed no acute process in the chest and urinalysis bowel gas pattern. Liver ultrasound, chest x-ray and CT of abdomen and pelvis were pending at time of admission. ASSESSMENT: 1. Hepatic encephalopathy secondary to elevated ammonia levels, uncertain etiology, but possibly secondary to administration of trazodone, fairly new medication for the patient. 2. Anemia, microcytic presentation, requiring recent transfusion of 4 units of packed red blood cells. 3. Electrolyte imbalance with hypokalemia. 4. Elevated liver function tests, uncertain etiology. 5. History of recent EGD and colonoscopy performed by Dr. Mckeon in [place] without any findings per family and the patient. 6. 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 7. Elevated cardiac enzymes to include CPK and troponin with EKG showing no acute ST changes compared to previous exam, probably related to underlying stress event from previous symptomatic anemia. 8. History of hypertension, stable. 9. History of restless leg syndrome, recently started on Neurontin. PLAN: The patient will be admitted to the Medical/Surgical Floor for further treatment and evaluation. She was given a dose of lactulose for her elevated ammonia levels. We will continue to supplement with p.r.n. doses as needed and closely monitor the patient's laboratory studies including electrolytes, BMP, magnesium levels. We will anticipate her length of stay to be at two to three days. We will look to see if we can possibly get a GI consultation in the morning as Dr. Keene will be here in the specialty clinic. We will need to watch the patient's electrolytes closely as we do utilize lactulose to hopefully prevent any metabolic derangements due to the side effects of lactulose. Until she can transition to outpatient management, we will continue to monitor and treat as needed. #[id number] [facility]
[2018-08-08] MEDS ORDERED: LACTULOSE SYRUP 20 GM/30 ML UD PO SCH (16:30)
[2018-08-08] MEDS ORDERED: KCL 20MEQ/D5W 1,000 ML IVS PRN ×2 (16:53→23:55)
--- NOTE | 2018-08-08 18:09 | RAD ---
EXAM DESCRIPTION: Chest,1 View CLINICAL HISTORY: fever COMPARISON: 23 June 2018 TECHNIQUE: AP portable chest FINDINGS: Cardiomegaly is observed. Bilateral atelectatic type parenchymal changes are observed. Overall aeration the chest remains essentially unchanged the previous exam. No pleural fluid is seen. IMPRESSION: Minimal bilateral atelectatic type parenchymal changes are observed bilaterally essentially unchanged from the previous exam. Electronically signed by: Devan Brown MD 08/08/2018 6:06 PM ENGINEERING PROJECT MANAGER
[2018-08-08] MEDS ORDERED: ENOXAPARIN SODIUM 80 MG/0.8 ML SYG SUBCU ONE (19:35)
--- NOTE | 2018-08-08 19:37 | CT ---
EXAM: CT Abdomen and Pelvis Without Intravenous Contrast CLINICAL HISTORY: The patient is 63 years old and is Female; fever unknown etiology TECHNIQUE: Axial computed tomography images of the abdomen and pelvis without intravenous contrast. Sagittal and coronal reformatted images were created and reviewed. This CT exam was performed using one or more of the following dose reduction techniques: automated exposure control, adjustment of the mA and/or kV according to patient size, and/or use of iterative reconstruction technique. COMPARISON: No relevant prior studies available. FINDINGS: Lung bases: Minimal subsegmental atelectasis at the lung bases. No focal lung consolidation. ABDOMEN: Liver: Nodular control the liver suggestive of cirrhosis. Gallbladder and bile ducts: Unremarkable. No calcified stones. No ductal dilation. Pancreas: Unremarkable. No ductal dilation. Spleen: Unremarkable. No splenomegaly. Adrenals: Unremarkable. No mass. Kidneys and ureters: Unremarkable. No obstructing stones. No hydronephrosis. Stomach and bowel: Thickening of the gastric wall may be secondary to underdistention or nonspecific gastritis. Colonic diverticulosis without evidence of diverticulitis. PELVIS: Appendix: No findings to suggest acute appendicitis. Bladder: Bladder decompressed with Bueno catheter in place. No stones. Reproductive: Unremarkable as visualized. ABDOMEN and PELVIS: Intraperitoneal space: Moderate to large volume ascites. No free air. Bones/joints: Mild spine degenerative changes. No acute fracture. No dislocation. Soft tissues: Unremarkable. Vasculature: Atherosclerotic vascular calcifications. No abdominal aortic aneurysm. Lymph nodes: Unremarkable. No enlarged lymph nodes. IMPRESSION: 1. Thickening of the gastric wall may be secondary to underdistention or nonspecific gastritis. 2. Moderate to large volume ascites. 3. Nodular control the liver suggestive of cirrhosis. 4. Bladder decompressed with Bueno catheter in place. 5. Colonic diverticulosis without evidence of diverticulitis. Electronically signed by: Rudolph Henriquez MD 08/08/2018 7:35 PM CONFERENCE SERVICES COORDINATOR
[2018-08-08] MEDS: SERTRALINE HCL 50 MG TAB PO SCH (20:35)
[2018-08-08] MEDS ORDERED: NON-FORMULARY MEDICATION 1 EA MIS (Melatonin [Melatonin] 20 MG) PO SCH (21:00)
[2018-08-08] MEDS ORDERED: ENOXAPARIN SODIUM 40 MG/0.4 ML SYG SUBCU SCH (21:00)
[2018-08-08] MEDS ORDERED: LACTULOSE SYRUP 20 GM/30 ML UD PO ONE (22:18)
[2018-08-09] MEDS: cefTRIAXone SODIUM 1 GM in SODIUM CHL 0.9% 50ML MIN-BAG+ 50 ML IVPB SCH (01:39)
[2018-08-09] MEDS: KCL 20MEQ/0.45% NS 1,000 ML IVS PRN (04:39)
[2018-08-09] MEDS ORDERED: ENOXAPARIN SODIUM 80 MG/0.8 ML SYG SUBCU ONE (07:30)
[2018-08-09] MEDS: LACTULOSE SYRUP 20 GM/30 ML UD PO SCH ×4 (08:37→19:45)
[2018-08-09] MEDS: amLODIPine BESYLATE 5 MG TAB PO SCH (08:39)
[2018-08-09] MEDS ORDERED: MAGNESIUM SULFATE PREMIX 2GM 2 GM in PREMIX BAG 1 BAG IVPB ONE (09:08)
[2018-08-09] MEDS ORDERED: POTASSIUM CHLORIDE 20 MEQ TAB PO ONE (09:08)
[2018-08-09] MEDS ORDERED: MAGNESIUM SULFATE PREMIX 2GM 50 ML IVPB ONE (10:21)
[2018-08-09] MEDS: SODIUM CHLORIDE 0.9% (FLUSH) 10 ML SYG IV PRN ×3 (10:40→20:28)
[2018-08-09] MEDS ORDERED: ALBUMIN IVPB ONE ×2 (12:54→13:15)
--- NOTE | 2018-08-09 13:17 | CONS ---
DATE OF CONSULTATION: 08/09/18 REASON FOR CONSULTATION: Anemia and elevated ammonia level. CHIEF COMPLAINT: Confusion and weakness. HISTORY OF PRESENT ILLNESS: Ms. Matthews is a 63-year-old woman with a history of likely alcoholic cirrhosis complicated by portal hypertension, ascites and hepatic encephalopathy. She is currently admitted with hepatic encephalopathy and found to have a urinary tract infection. She was recently admitted on 08/06/18. She had presented with a hemoglobin of 6. She did receive 4 units of blood and responded appropriately. Currently, her hemoglobin is 10. She has no melena or hematochezia. Her stool is brown in color. 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 She had a PillCam during that admission as well which apparently was normal. Her blood count had been steady until her most recent admission. She is currently confused and unable to provide a reliable history. She has been receiving lactulose 40 grams q.12h. while admitted and is receiving ceftriaxone 1 gram q.24h. for the urinary tract infection. There is no abdominal pain, but there is abdominal distention. Imaging has shown ascites. No nausea or vomiting. She had a low grade temperature of 100.4 on admission. Paracentesis was not performed. REVIEW OF SYSTEMS: Ten-point review of systems is otherwise normal aside from what is described above. PAST MEDICAL HISTORY: 1. Depression. 2. Hypertension. 3. Anemia. 4. Cirrhosis. PAST SURGICAL HISTORY: 1. Hysterectomy. 2. Right renal artery aneurysm repair in 2007. 3. Tonsillectomy and adenoidectomy. CURRENT HOME MEDICATIONS: 1. Norvasc. 2. Melatonin. 3. Tramadol. ALLERGIES: CONTRAST DYE. FAMILY HISTORY: No relevant gastrointestinal disease. SOCIAL HISTORY: Former heavy alcohol drinker. No alcohol over the past six months. Former tobacco user. PHYSICAL EXAMINATION: VITAL SIGNS: Heart rate 100. Blood pressure 114/86. Respirations. 20 oxygen saturation 96% on room air. She us currently afebrile, but low grade fever on admission. HEENT: Anicteric. No conjunctival injection. NECK: Trachea is midline. Supple. RESPIRATORY: Lungs clear to auscultation bilaterally. No increased respiratory effort. HEART: S1, S2. Regular rate and rhythm. No murmurs, rubs or gallops. ABDOMEN: Moderate distention. Nontender. EXTREMITIES: No lower extremity edema. NEUROLOGIC: Confused. LABORATORY: White blood cells 7.3, hemoglobin 10.0, MCV 82.5, platelet count 182. Sodium 144, potassium 2.6, bilirubin 1.1, AST 118, ALT 37. Ammonia level 125 on admission, currently 51. Urine toxicology was negative. Hepatitis serology pending. ASSESSMENT: The patient is a 63-year-old woman with a history of cirrhosis complicated by hepatic encephalopathy and ascites presenting for evaluation of an acute episode hepatic encephalopathy, likely secondary to urinary tract infection. RECOMMENDATIONS: 1. Increase lactulose to 30 grams q.4h. until she clears up. She should be discharged with a dose of lactulose titrated to 3 to 4 bowel movements daily. 2. Diagnostic paracentesis and therapeutic if possible. 3. Would discontinue maintenance IV fluids as this will go into her abdomen. 4. Iron deficiency anemia could continue to be evaluated as an outpatient. She is not having acute gastrointestinal bleeding at this time. 5. Upon discharge, would start 100 mg of spironolactone and 40 mg of Lasix daily with a 2 gram sodium diet. 6. Followup in the GI office in 2 months' time. #[id number] [facility]
--- NOTE | 2018-08-09 16:11 | CONS ---
DATE OF CONSULTATION: 08/09/18 HISTORY OF PRESENT ILLNESS: The patient is a 63 year-old female who was admitted by the hospitalist service with confusion and weakness. The patient had known liver disease and a diagnosis of hepatic encephalopathy has been made. Workup has revealed ascites also. She has a long history of alcohol use and her hepatitis panel is pending currently. 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 Today, she is alert and oriented, and answers questions appropriately. She is seen with her common law . The patient is currently being treated with ceftriaxone for a urinary tract infection and lactulose for the hepatic encephalopathy. She is currently without nausea or vomiting. In fact is quite hungry and thirsty. PAST MEDICAL HISTORY: 1. Hypertension. 2. Depression. 3. Anemia. 4. Cirrhosis. 5. History of alcohol abuse and tobacco abuse. PAST SURGICAL HISTORY: 1. Status post hysterectomy. 2. Repair of right renal aneurysm in 2007. 3. Tonsillectomy and adenoidectomy. HOME MEDICATIONS: 1. Norvasc. 2. Melatonin. 3. Tramadol. ALLERGIES: IV CONTRAST DYE. FAMILY HISTORY: Noncontributory. SOCIAL HISTORY: She is . No longer works. Former heavy drinker. Quit smoking recently also. REVIEW OF SYSTEMS: There is no active sign of bleeding. No melena. No hematemesis. No hematochezia. There has been some weight gain and an increase in her abdominal girth. She has no loss of appetite. There has been no fever or chills. No upper respiratory symptoms. PHYSICAL EXAMINATION: VITAL SIGNS: She is currently afebrile and normotensive. GENERAL: She is making urine. Has a Bueno catheter in place. She has had 1 stool. LABORATORY: Hemoglobin 10, white count 7.3, platelet count 182,000, 79% neutrophils. Chemistries today reveal potassium 2.6, creatinine 0.84. Total bilirubin 1.1. GTT 118, ammonia 51. As noted, the hepatitis panels are pending. Ultrasound of the abdomen and liver reveal a contracted gallbladder with no pericholecystic fluid, a thickened wall without stones. Shows the liver has coarse echogenicity and a lobulated liver capsule. Otherwise unremarkable. The CT scan revealed a large amount of ascites and no acute findings. IMPRESSION: 1. Ascites secondary to cirrhosis of the liver of unknown etiology, most likely alcoholic. PLAN: The plan as recommended by Dr. Li is to perform a sonographically guided paracentesis tomorrow and this will be done. It is scheduled for 9:30 pending my surgery. #[id number] [facility]
[2018-08-09] MEDS ORDERED: metroNIDAZOLE IV PREMIX 500MG 100 ML IVPB ONE ×3 (16:21→19:14)
[2018-08-09] MEDS ORDERED: cefTAZidime 1 GM VIAL ONE ×3 (16:22→19:40)
[2018-08-09] MEDS ORDERED: SODIUM CHLORIDE 0.9% 100ML 100 ML IVPB ONE ×3 (16:22→19:40)
[2018-08-09] MEDS: metroNIDAZOLE IV PREMIX 500MG 500 MG in PREMIX BAG 1 BAG IVPB SCH ×2 (16:25→20:40)
--- NOTE | 2018-08-09 17:30 | PN ---
DATE: 08/09/18 SUPERVISING PHYSICIAN: Erasmo Corea M.D. SUBJECTIVE: The patient was seen today in consultation with Dr. Li. The patient is still having some elevated ammonia levels and is quite confused, but showing some improvement from admission. She did run a low-grade fever and has been started on antibiotics with concerns for possible urinary tract infection, but awaiting a diagnostic therapeutic paracentesis to further rule out possible spontaneous bacterial peritonitis and after talking to Dr. Renner, will go ahead and start her on antibiotic coverage until we can rule that out with Fortaz 2 grams every 8 hours and Flagyl. We have also talked to the at length about the plan of care and he is in agreement. OBJECTIVE: VITAL SIGNS: Temperature 98.4, pulse 99, blood pressure 138/84, respirations 16, satting 94% on room air. GENERAL: The patient is obviously quite confused, restless. CHEST: Lungs were clear to auscultation bilaterally. HEART: Regular rate and rhythm. ABDOMEN: Moderately distended but non-tender. EXTREMITIES: Show to be without any edema. NEUROLOGIC: She remains confused. LABORATORY: White count remains stable at 7.3, hemoglobin 10, hematocrit 31.0, platelet count 182,000. Differential does show a left shift. RBC indices indicate a microcytic presentation. Chemistries show potassium 2.6, chloride 114, carbon dioxide 16, sodium 144, creatinine 0.84, BUN 11, calcium 8.5, magnesium 1.6. Bilirubin 1.1. GGT is elevated at 79, AST 118, ALT has normalized to 37 as well as alkaline phosphatase. Ammonia is now at 51. She does continue to show a slightly elevated troponin at 0.14. She did have a BNP that was elevated at 749. Current albumin is 2.8. EBEN in blood bank was negative. MICROBIOLOGY: Urine culture is pending. RADIOLOGY: Abdominal/pelvis CT yesterday per radiology interpretation showed a large amount of ascites with thickening of the gastric wall probably secondary to underdistention or nonspecific gastritis with nodular control of the liver suggestive of cirrhosis and colonic diverticulosis, but no evidence of diverticulitis. ASSESSMENT: 1. Hepatic encephalopathy complicated by ascites and an underlying urinary tract infection. Awaiting a diagnostic and therapeutic paracentesis. 2. Anemia, microcytic presentation, likely due to iron deficiency being further worked up as an outpatient since the patient has just recently received 4 units of packed red blood cells. 3. Electrolyte imbalance to include hypokalemia secondary to Lactulose administration. 4. Elevated liver function tests, probably due to alcoholic cirrhosis, but showing to be returning to baseline levels. 5. Elevated cardiac enzymes with an elevated BNP probably due to recent volume increase from 4 units of packed red blood cells with the patient not showing any changes concerning for acute coronary syndrome. 6. History of hypertension, stable. 7. History of restless leg syndrome, started on Neurontin. PLAN: Dr. Rebollar is going to see the patient tomorrow in consultation to do a paracentesis for therapeutic and diagnostic reasons. I talked to Dr. Li as well as Dr. Renner and based off the current ascites awaiting a paracentesis, will cover for possible spontaneous bacterial peritonitis, although the patient is showing to be fairly stable, therefore will start her on Fortaz and Flagyl. Will go ahead and repeat labs in the morning and await further studies on the ascites fluid. Will await culture results to further target antibiotic therapy of the urine. On recommendations per Dr. Li, will go ahead and increase her Lactulose to 30 mg every 4 hours until she resolves in regards to her high levels of ammonia. Will also saline lock her and upon discharge will start her on some Spironolactone 100 mg and Lasix 40 mg with a 2 gram sodium diet. She will need to followup with Dr. Li in 2 months after discharge. Will await further studies from the paracentesis and once the patient is showing clinically to be stable, will continue to manage as an outpatient. Until then will continue to monitor and treat as needed. [facility][id number] [facility]
[2018-08-09] MEDS: cefTAZidime 2 GM in SODIUM CHLORIDE 0.9% 100ML 100 ML IVPB SCH ×3 (17:36→21:39)
[2018-08-09] MEDS: SERTRALINE HCL 50 MG TAB PO SCH (20:27)
[2018-08-10] MEDS: LACTULOSE SYRUP 20 GM/30 ML UD PO SCH ×6 (00:06→20:07)
[2018-08-10] MEDS: metroNIDAZOLE IV PREMIX 500MG 500 MG in PREMIX BAG 1 BAG IVPB SCH ×3 (04:57→21:09)
[2018-08-10] MEDS: cefTAZidime 2 GM in SODIUM CHLORIDE 0.9% 100ML 100 ML IVPB SCH ×3 (05:55→22:16)
[2018-08-10] MEDS: amLODIPine BESYLATE 5 MG TAB PO SCH (08:33)
[2018-08-10] MEDS ORDERED: cefTAZidime 1 GM VIAL ONE ×2 (08:51→19:56)
[2018-08-10] MEDS ORDERED: SODIUM CHLORIDE 0.9% 100ML 100 ML IVPB ONE ×2 (08:51→19:56)
[2018-08-10] MEDS ORDERED: metroNIDAZOLE IV PREMIX 500MG 100 ML IVPB ONE ×2 (08:53→19:56)
--- NOTE | 2018-08-10 11:02 | OP ---
DATE OF PROCEDURE: 08/10/18 PREOPERATIVE DIAGNOSIS: 1. Ascites secondary to probably alcoholic cirrhosis. POSTOPERATIVE DIAGNOSIS: 1. Ascites secondary to probably alcoholic cirrhosis. PROCEDURE: 1. Sonographically guided paracentesis. SURGEON: Vernon Rebollar MD. RAD TECH: None. ANESTHESIA: Local infiltration of 1% lidocaine. INDICATION: The patient is a 63-year-old female who was admitted with hepatic encephalopathy and elevated ammonia. She is quite uncomfortable with the ascites and there is some question as to whether the cirrhosis is secondary to hepatitis or alcohol abuse. She was seen by gastroenterology yesterday who recommended both a diagnostic and therapeutic paracentesis. FINDINGS: The clear fluid cavity was easily identified by ultrasound and entered using ultrasound guidance. 3200 mL of clear, ward-colored fluid was obtained. PROCEDURE: After the patient was placed in the supine position with the right side slightly elevated. The left lower quadrant was inspected with the ultrasound device. When the area was selected, the abdominal wall was prepped cephalad and lateral to the ultrasound probe and draped. Local infiltration of anesthesia was obtained with 1% lidocaine. A 22-gauge, 1.5-inch needle was then advanced under ultrasound guidance into the fluid. A small amount of fluid was obtained. At this point, a stab wound was made with a #11 blade and the paracentesis needle was advanced. Fluid was aspirated and the catheter was advanced and then withdrawn. 120 mL of ward fluid was removed using the three- way stopcock. The initial fluid was used for the appropriate specimens. At this point, it was connected to suction bottles and the remaining fluid was obtained. The patient tolerated the procedure well. There was no significant blood loss. When the suction was finished, the catheter was removed and sterile dressing was applied. #[id number] [facility]
--- NOTE | 2018-08-10 11:48 | US ---
Paracentesis EXAM DESCRIPTION: Paracentesis: Ultrasound CLINICAL HISTORY: Ascites COMPARISON: Ultrasound of the liver 08/08/2018. TECHNIQUE: The procedure performed by Dr. Rebollar. Please see procedure note. Ultrasound scan by roll tender on the anterior abdomen prior to the procedure, with left lower quadrant site selected for drainage. No immediate complications. FINDINGS: Large fluid collection in the right lower quadrant and left lower quadrant of the abdomen. 3200 mL of clear yellow fluid was drained from the left lower quadrant. IMPRESSION: Successful paracentesis following ultrasound visualization of ascites . Please see surgical procedure note. Electronically signed by: Artur Santos MD 08/10/2018 11:45 AM [facility]
[2018-08-10] MEDS ORDERED: ALBUMIN IVPB ONE ×2 (11:50→12:31)
[2018-08-10] MEDS ORDERED: SPIRONOLACTONE 25 MG TAB PO ONE (11:51)
[2018-08-10] MEDS: FUROSEMIDE 40 MG TAB PO SCH (12:37)
[2018-08-10] MEDS: SPIRONOLACTONE 25 MG TAB PO SCH (17:12)
[2018-08-10] MEDS ORDERED: hydrOXYzine HCl 25 MG TAB PO PRN (19:19)
--- NOTE | 2018-08-10 19:27 | PN ---
DATE: 08/10/18 SUPERVISING PHYSICIAN: Erasmo Corea M.D. SUBJECTIVE: The patient had a paracentesis completed today by Dr. Rebollar. Approximately 3200 or 3500 mL were taken off. It looked to be clear ward fluid. She tolerated the procedure well. She has been afebrile. She has actually had her mentation return to near baseline levels despite persistent elevated ammonia levels. We do have her on Lactulose with the patient having multiple stools throughout the day. OBJECTIVE: VITAL SIGNS: Temperature 98.2, pulse 88, blood pressure 125/77, respirations 16, satting 97% on room air. I's and O's show a negative balance of 3050 with 800 in, 3850 out, 550 of it being in the [place], the rest being on paracentesis. She has had multiple bowel movements. Weight is 70.8 kg which is down from admission of 78.4 kg. GENERAL: The patient is resting comfortably. She is alert. She is not as confused as previous. She does have an obvious tic with small tremors which she has had for a while. CHEST: Lungs are clear to auscultation, just diminished towards the bases. HEART: Regular rate and rhythm. ABDOMEN: Prior to paracentesis was showing to be distended, firm, non- tender. EXTREMITIES: Without any edema. NEUROLOGIC: She is alert and oriented to herself, location and family members. LABORATORY: CBC shows white count 6,400, hemoglobin 9.3, hematocrit 29.1, platelet count 156,000. Differential shows a resolved left shift. Chemistries this morning showed sodium 148 with potassium 2.4, chloride 118, anion gap was normal, BUN 10, creatinine 0.76, glucose 86, calcium 8.6, magnesium 2.1. Total bilirubin 1, AST 117, GGT was 79. Ammonia this morning was 50 and albumin was 3.2. Paracentesis studies are pending. Hepatitis panel showed nonreactive for B and A, but reactive hep C antibody with real time PCR showing to be negative for any active viral infection with reported results probably from cross reactivity as the patient does not report she has been treated previously or had an infection in the past. MICROBIOLOGY: Final urine culture showed no growth. Peritoneal fluid and ascites fluid is pending culture. RADIOLOGY: Paracentesis ultrasound shows successful paracentesis following ultrasound visualization of ascites. PROCEDURE: Sonography guided paracentesis performed by Dr. Rebollar. Please see his operative note for details. ASSESSMENT: 1. Hepatic encephalopathy status post diagnostic and therapeutic paracentesis with studies pending, likely alcoholic origin. 2. Microcytic anemia probably due to iron deficiency requiring further workup as an outpatient as the patient did receive 4 units of packed red blood cells. 3. Electrolyte imbalance to include hypokalemia and hypochloride levels secondary to persistent administration of Lactulose. 4. Elevated liver functions with elevated ammonia levels showing slow return to baseline levels secondary to probably alcoholic cirrhosis with further testing pending. 5. Elevated cardiac enzymes with an elevated BNP probably related to recent infusion of 4 units packed red blood cells with the patient showing to be without any signs of acute coronary syndrome with EKG being negative for any acute changes. 6. History of hypertension, stable. 7. History of restless leg syndrome, recently started on Neurontin. PLAN: Will continue to monitor the patient closely today post paracentesis. I will go ahead and give her 50 grams of albumin. Will await further workup on the ascites fluid. Awaiting culture results. Will go ahead and leave her on antibiotics to include Fortaz and Flagyl, again with remote concerns for spontaneous bacterial peritonitis, although less likely based off current findings on the paracentesis. Will continue with Lactulose 30 mL every 4 hours and I have also started her on Spironolactone 100 mg. Will divide it 50 mg b.i.d. as well as a daily dose of Lasix at 40 mg in efforts to help control the ascites. Hopefully if she shows improvement will be able to discharge in the next 1 to 2 days. We may have to consider changing her regimen for her elevated ammonias to Rifaximin, however at this point the hospital does not carry that formula, we would have to order it. Please refer to Dr. Li's consultation for recommendations on discharge. Until we can discharge to continue treatment as an outpatient, will continue to monitor and treat as needed. [facility][id number] [facility]
[2018-08-10] MEDS ORDERED: ENOXAPARIN SODIUM 40 MG/0.4 ML SYG SUBCU SCH (21:00)
[2018-08-10] MEDS: SERTRALINE HCL 50 MG TAB PO SCH (21:10)
[2018-08-11] MEDS: LACTULOSE SYRUP 20 GM/30 ML UD PO SCH ×4 (00:12→12:46)
[2018-08-11] MEDS: IV SET AND CAP CHANGE INJ INJ SCH (04:36)
[2018-08-11] MEDS ORDERED: metroNIDAZOLE IV PREMIX 500MG 100 ML IVPB ONE ×2 (04:49→12:31)
[2018-08-11] MEDS ORDERED: SODIUM CHLORIDE 0.9% 100ML 100 ML IVPB ONE ×2 (04:50→12:31)
[2018-08-11] MEDS ORDERED: cefTAZidime 1 GM VIAL ONE ×2 (04:50→12:31)
[2018-08-11] MEDS: metroNIDAZOLE IV PREMIX 500MG 500 MG in PREMIX BAG 1 BAG IVPB SCH ×2 (05:03→12:51)
[2018-08-11] MEDS: cefTAZidime 2 GM in SODIUM CHLORIDE 0.9% 100ML 100 ML IVPB SCH ×2 (05:56→13:23)
[2018-08-11] MEDS ORDERED: BIFIDOBACTERIUM INFANTIS 4 MG CAP PO SCH (09:00)
[2018-08-11] MEDS: FUROSEMIDE 40 MG TAB PO SCH (09:12)
[2018-08-11] MEDS: SPIRONOLACTONE 25 MG TAB PO SCH (09:12)
[2018-08-11] MEDS: amLODIPine BESYLATE 5 MG TAB PO SCH (09:13)
[2018-08-11] MEDS ORDERED: POTASSIUM CHLORIDE 20 MEQ TAB PO ONE (09:24)
[2018-08-11 10:57] VITALS: O2SAT 96
[2018-08-11 13:43] VITALS: BP 138/83; TEMP 97.9
--- NOTE | 2018-08-11 21:35 | DS ---
ADMISSION DIAGNOSIS: 1. Hepatic encephalopathy secondary to elevated ammonia levels, uncertain etiology, but possibly secondary to administration of trazodone, fairly new medication for the patient. 2. Anemia, microcytic presentation, requiring recent transfusion of 4 units of packed red blood cells. 3. Electrolyte imbalance with hypokalemia. 4. Elevated liver function tests, uncertain etiology. 5. History of recent EGD and colonoscopy performed by Dr. Mckeon in [place] without any findings per family and the patient. 6. 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 7. Elevated cardiac enzymes to include CPK and troponin with EKG showing no acute ST changes compared to previous exam, probably related to underlying stress event from previous symptomatic anemia. 8. History of hypertension, stable. 9. History of restless leg syndrome, recently started on Neurontin. HISTORY OF PRESENT ILLNESS: Ms. Matthews is a 63-year-old, female patient that just was in the hospital at [facility] for symptomatic anemia and received 4 units of packed red blood cells. She was discharged on 08/07/18. Shortly after going home, she had an episode of weakness and loss of bowel and was brought back in to the Emergency Room by EMS at the request of the patient's significant other. It is noted that she had recently had an upper and lower endoscopy and received pill endoscopy without any findings of source of anemia. She had been having generalized weakness over the last week and was found to be having symptomatic anemia and at some point had been started on trazodone for insomnia and restless legs. On the day of discharge, she had actually been given trazodone in the morning 2 hours prior to discharge, went home and was doing fine until she again had some confusion in the afternoon. She noted she had been having some gait instability for several weeks and was made worse since her anemia. This was all corrected on the previous admission as well as her electrolytes. At home, again, the patient was found to be significantly confused and was brought back to the Emergency Room. On exam in the Emergency Room, the patient was significantly confused, but no acute distress. There was no evidence of bleeding. She was well hydrated. She was very pleasant, but easily disoriented. She was also noted to be very active and unable to stay still. She had no significant headaches, no evidence of nuchal rigidity or meningeal signs or any head trauma. It is noted she does have a history of liver disease which is still being worked up as an outpatient. The significant other that was with the patient was unable to give any further information at time of admission. Workup at that time, vital signs showed temperature initially of 99.6, pulse 103, blood pressure 141/86, oxygen saturation 96% on room air, respirations 20. Repeat laboratory studies showed white count 7.5, hemoglobin 9.7, hematocrit 30.1, platelet count 191,000. Differential did show a slight left shift. Coagulation studies showed PT 12.2, INR 25.3. Chemistries revealed potassium 3.4, carbon dioxide 17, BUN 17, creatinine 1.03. Liver functions showed AST 65, ALT 24, alkaline phosphatase 107. CK showed elevation of 568 as well as troponin 0.06, BNP 221. Albumin 3. Amylase and lipase were both normal. TSH normal at 1.62. Calcium 8.9, lactic acid normal at 1.0. Ammonia level was also run and was elevated at 125. Urinalysis on admission did show 15 ketone, moderate amount of blood with small bilirubin. Microscopic revealed 10 to 20 RBCs, 5 to 10 WBCs, 5 to 10 epithelials and 1+ bacteria. Toxicology screen was negative for all substances tested as well as alcohol. Hepatitis panel was pending at time of admission. A flu swab was collected which was negative by PCR for A and B. She had an abdominal x-ray initially and per radiologic interpretation there was no acute process in the chest and unremarkable bowel gas pattern. Given that the patient was having significant confusion and elevated ammonia, it was felt the patient was showing significant hepatic encephalopathy, possibly secondary to trazodone. Therefore, she was given lactulose in the Emergency Room and then admitted for further evaluation and treatment. HOSPITAL COURSE: Ms. Matthews was initially admitted for hepatic encephalopathy with elevated levels of ammonia in light of chronic cirrhosis. She was monitored over several days, given Lactulose, with an increase in bowel movements and a subsequent decrease in her ammonia levels. At one point her ammonia level was increased even more, thus Lactulose was increased to every 4 hours. Her ammonia levels then decided to decrease. She did reach normal mentation, this was endorsed by her and her , the day prior to discharge. She has been treated with Flagyl and Fortaz in light of potential SBP, but a paracentesis done on 08-10-18 showed no bacteria or sign of SBP. She does not need to go home with these antibiotics. Physical Therapy was consulted on 08-11-18, they deemed her safe and okay for discharge home, this was discussed with the as well. VITAL SIGNS: Temperature 97.9, pulse 84, blood pressure 138/83, respiratory rate 16, oxygen 96% on room air. LABORATORY: White blood cell count normal throughout stay. Hemoglobin 9.7, baseline. Platelet count remained normal throughout. Sodium is slightly high, potassium is slightly low, this was likely a result from increasing bowel movements. Ammonia levels initially in the 100s, with resolution to the 50s and 60s. ALT was normal, AST elevated at baseline. Amylase and lipase normal. Urine drug screen negative. Hepatitis C antibody positive, but PCR was negative. This could be seen in a cross reactivity. IMAGING: Liver ultrasound 08-08-18 with mildly enlarged liver most likely with changes resembling cirrhosis and moderate ascites. Kidneys normal with no hydronephrosis noted. Abdomen and pelvis CT 07-29-18 with thickening of the gastric wall secondary to likely gastritis, nodular control of the liver suggestive of cirrhosis and chronic diverticulosis without evidence of diverticulitis. Paracentesis ultrasound 08-10-18 demonstrated a resolution of large amount of ascites after 3.2 liters removed. DISCHARGE DIAGNOSIS: 1. Hepatic encephalopathy status post diagnostic and therapeutic paracentesis, likely alcoholic in origin. 2. Chronic cirrhosis, again likely due to alcoholic in origin. 3. Microcytic anemia likely from iron deficiency, will require workup on an outpatient basis, status post 4 units of packed red blood cells in the hospital. 4. Hypokalemia and hypochloremia secondary to Lactulose. 5. Elevated AST and ammonia elevated, signifying the hepatic encephalopathy. 6. Chronic hypertension, stable. 7. History of restless leg syndrome. DISCHARGE PLAN: The patient was seen by Dr. Rebollar and myself, deemed to be at baseline mentation per the patient and her . Physical Therapy has seen the patient and deemed her safe for discharge home with . Instructions were given to them regarding the Lactulose, which they will continue every 6 hours on an outpatient basis until followup. It was reiterated with the that the ammonia level at baseline is probably a rising number in his 's case. We need to treat the bowel movements to have somewhere between 3 to 5 per day, and still maintain good mentation. If this cannot be obtained, then she likely have a reactive progressive disease complication of her cirrhosis and needs specialist workup from appropriate medical hospital. They are unfunded, and are currently trying to gain disability or Medicaid. If they can obtain this in the next 6 months then they will actively be able to find the healthcare that is required to getting the help that she needs. I sent her home with Spironolactone and Lasix, which she was getting here in the hospital. Will also continue a low protein diet to hopefully decrease the amount of ammonia that is being produced, as well as a low salt diet to hopefully prevent fluid accumulation. #[id number] [facility]
== END 2018-08-11 16:35 | disposition home or self-care (01) | DRG 434 ==
LOC: ER 19:26 → MS 23:34 → OBSVTOIN 23:34
PROVIDERS: ADMIT Nurse Practitioner Family; ATTEND Nurse Practitioner Family
PROC: 0W9G3ZZ Drainage of Peritoneal Cavity, Percutaneous Approach (ICD-10-PCS; principal; 2018-08-10)
DX: K70.40 Alcoholic hepatic failure without coma (principal); K70.31 Alcoholic cirrhosis of liver with ascites; I10 Essential (primary) hypertension; F32.9 Major depressive disorder, single episode, unspecified; K76.0 Fatty (change of) liver, not elsewhere classified; D50.9 Iron deficiency anemia, unspecified; E87.6 Hypokalemia; G72.89 Other specified myopathies; G25.81 Restless legs syndrome; T43.215A Adverse effect of selective serotonin and norepinephrine reuptake inhibitors, initial encounter; Y92.009 Unspecified place in unspecified non-institutional (private) residence as the place of occurrence of the external cause; G47.00 Insomnia, unspecified; R74.8 Abnormal levels of other serum enzymes; T47.3X5A Adverse effect of saline and osmotic laxatives, initial encounter; Y92.230 Patient room in hospital as the place of occurrence of the external cause; E66.9 Obesity, unspecified; Z88.5 Allergy status to narcotic agent; Z91.041 Radiographic dye allergy status; Z87.891 Personal history of nicotine dependence; Z79.891 Long term (current) use of opiate analgesic; Z79.899 Other long term (current) drug therapy; Z68.29 Body mass index [BMI] 29.0-29.9, adult

== ENCOUNTER 2018-08-28 12:28 | Observation (INO) | payer SELFPAY ==
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
--- NOTE | 2018-08-28 14:02 | CT ---
EXAM DESCRIPTION: Head CLINICAL HISTORY: FALL WITH HEAD PAIN COMPARISON: Previous head CT August 17, 2009 TECHNIQUE: Noncontrast head CT was performed with routine protocol. FINDINGS: Normal martinez-white matter differentiation. Ventricles and sulci are normal for age. No high density hemorrhage, focal edema or shift of the midline. No sulcal effacement. Normal orbital contents. Basilar cisterns appear clear. Intact calvarium with no fracture or lytic lesion. Normal aeration of tympanic cavities and mastoid air cells. No fluid levels in the paranasal sinuses. Skull base appears intact. Symmetrical internal auditory canals. Coronal and sagittal reformatted images confirm the findings. IMPRESSION: No acute intracranial pathologic process. This exam was performed according to our departmental dose-optimization program, which includes automated exposure control, adjustment of the mA and/or kV according to patient size and/or use of iterative reconstruction technique. Total DLP equals 752.48 mGycm. Electronically signed by: Lai Ybarra MD 08/28/2018 1:59 PM CDT
--- NOTE | 2018-08-28 14:05 | CT ---
EXAM DESCRIPTION: Cervical Spine CLINICAL HISTORY: FALL WITH HEAD PAIN COMPARISON: None Available. TECHNIQUE: Cervical CT is performed with thin-section axial imaging. MPRs are created and reviewed as well. FINDINGS: Axial bone window images reveal intact ring of C1. No abnormal widening of the atlantodens interval. No fracture of the vertebral bodies or transverse processes or posterior elements. Lung apices appear clear. No cervical mass or adenopathy. Sagittal reformatted images show normal alignment of vertebral bodies and facets. No jumped facet or facet fracture. Normal craniocervical alignment. No prevertebral soft tissue swelling. No avulsion of the spinous processes. Spondylosis: There is loss of the normal cervical lordosis. Degenerative narrowing of the atlantodens interval with spurring at the superior dens. Degenerative disc disease is seen at the C5-6 level with anterior and posterior spurring. Coronal reformatted images show normal atlantooccipital and atlantoaxial alignment. The base of the dens is intact as is the body of C2. Intact lateral masses. IMPRESSION: Negative for fracture or posttraumatic subluxation. This exam was performed according to our departmental dose-optimization program, which includes automated exposure control, adjustment of the mA and/or kV according to patient size and/or use of iterative reconstruction technique. Total DLP equals 345.13 mGycm. Electronically signed by: Lai Ybarra MD 08/28/2018 2:02 PM CDT
--- NOTE | 2018-08-28 14:06 | RAD ---
EXAM DESCRIPTION: Chest,1 View CLINICAL HISTORY: 63 years Female, FALL WITH CHEST PAIN COMPARISON: Previous study August 08, 2018 TECHNIQUE: AP portable chest. FINDINGS: Heart size is large with normal pulmonary vascularity. Right hemidiaphragm is elevated. No consolidating infiltrate. No pulmonary mass or worrisome nodule. No pneumothorax or pleural effusion. Bones are unremarkable. IMPRESSION: No acute process is identified in the chest. Electronically signed by: Lai Ybarra MD 08/28/2018 2:02 PM CDT
--- NOTE | 2018-08-28 14:07 | RAD ---
EXAM DESCRIPTION: Forearm,Left x-ray two views CLINICAL HISTORY: 63 years Female, FALL WITH ABRASIONS COMPARISON: None. FINDINGS: Bones appear osteopenic. No dislocation at the wrist or elbow. No fracture. IMPRESSION: Negative for fracture. Electronically signed by: Lai Ybarra MD 08/28/2018 2:03 PM CDT
--- NOTE | 2018-08-28 14:13 | CT ---
EXAM DESCRIPTION: Chest w/o Contrast (accession [id number]), Abdoment/Pelvis w/o Contrast (accession [id number]) CLINICAL HISTORY: 63 years Female, FALL WITH CHEST/ABDOMINAL PAIN COMPARISON: None available. TECHNIQUE: Contiguous 3 mm axial images were obtained from the lung bases to the level of proximal femora without the administration of intravenous or oral contrast. Sagittal and coronal reconstructions were reviewed. FINDINGS: Limited evaluation of the solid organs and vasculature dictated lack of intravenous contrast. The visualized thyroid gland and supraclavicular regions appear normal. No abnormally enlarged lymph nodes are identified in the mediastinum, bilateral hilar or axillary regions. Trachea is midline. No evidence of pneumothorax or pleural effusions. No pulmonary contusions or hemorrhage. Minimal platelike subsegmental atelectasis is noted in the bilateral lung bases, right middle lobe and lingula. The heart is normal in size with no pericardial effusion. Mild coronary artery atherosclerosis is noted. Mild atherosclerosis is noted in the abdominal aorta. Small hiatal hernia is identified. The liver demonstrates a slightly nodular contour which can be seen with cirrhosis. The gallbladder is not well-distended with few gallstones. The pancreas appears normal. The spleen is mildly enlarged in size. Bilateral adrenal glands and kidneys appear normal with no evidence of acute injury on this noncontrast study. The stomach and small bowel loops appear normal. Moderate amount of fecal material is noted throughout the colon, consistent with constipation. Multiple diverticuli are also identified. Moderate volume of ascites is noted. No free intraperitoneal air. The urinary bladder appears normal. The uterus and ovaries are surgically absent. The abdominal aorta demonstrates moderate atherosclerosis. The inferior vena cava is normal in size and caliber. No abnormally enlarged lymph nodes are identified. Stranding is identified in the subcutaneous soft tissues anterior abdominal wall probably representing contusion. Moderate degenerative changes identified throughout the visualized spine. Severe right and mild left hip osteoarthritis is identified. Acute fracture of the lateral aspect of the right 10th rib is noted. Possible subacute fracture of the lateral aspect of the right eighth rib. IMPRESSION: 1. Possible cirrhosis with splenomegaly and moderate volume ascites. 2. Colonic diverticulosis and constipation. 3. Stranding is noted in the subcutaneous soft tissues of the anterior abdominal wall probably representing contusion. 4. Acute fracture of the lateral aspect of the right 10th rib is noted. Possible subacute fracture of the lateral aspect of the right eighth rib. This exam was performed according to our departmental dose-optimization program, which includes automated exposure control, adjustment of the mA and/or kV according to patient size and/or use of iterative reconstruction technique. Electronically signed by: Dane Johnston MD 08/28/2018 2:10 PM CDT
--- NOTE | 2018-08-28 15:32 | HP ---
SUPERVISING PHYSICIAN: Donald Roberto M.D. CHIEF COMPLAINT: Fall. HISTORY OF PRESENT ILLNESS: This is a 63 year-old female who apparently was at home and tripped over a cord and fell into her heater striking the left side of her head. She had some pain to her left forearm, bilateral chest and upper abdomen. She does have a history of cirrhosis and a recent admission for anemia requiring transfusion. In the Emergency Room her workup included labs and films. She had a CT scan of the abdomen and pelvis which showed cirrhosis with splenomegaly, chronic diverticulosis and constipation, stranding of the subcutaneous tissue of the anterior abdomen consistent with contusion, acute fracture of the lateral aspect of the right tenth rib as well. CT scan of the cervical spine did not show any findings. CT scan of the chest did not show any acute findings other than the rib fracture. Head CT did not show any acute findings. It should be noted that the patient could not have contrast for her abdominal CT due to IV contrast allergy. She also had a left forearm x-ray which did not show any fracture. On her labs, however, she was shown to have a low sodium which is a relatively new finding for her. Hemoglobin was 10.7 which is stable and around her normal range. Coag studies normal. Sodium 126, chloride 95, potassium 4.2, carbon dioxide is low at 16 but once again this is relatively normal for her. BUN 23, creatinine 1.18. AST 82, ALT 33, ammonia 31, amylase 116, lipase 83. Due to her low sodium and elevated amylase and lipase, I was contacted for observation status. At time of examination the patient is alert and oriented. She does not appear to be in any distress, however does complain of a little discomfort. She has not received any pain medicines as of yet. PAST MEDICAL HISTORY: 1. Depression. 2. Hypertension. 3. Chronic anemia. 4. Cirrhosis. PAST SURGICAL HISTORY: 1. Hysterectomy. 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 3. Tonsillectomy and adenoidectomy. CURRENT MEDICATIONS: Please see Med. Rec. list in the computer once it is completed. We are having to get her medication list from [facility] because she or her do not really know exactly what they are at this time. ALLERGIES: IV CONTRAST AND CODEINE. FAMILY HISTORY: Positive for kidney cancer, chronic obstructive pulmonary disease, cardiovascular disease, liver failure with anemia, congestive heart failure and thyroid cancer. SOCIAL HISTORY: She lives in [place]. Retired. Smoked a pack and a half a day for 20 years, but quit 10 years ago. Socially drinks alcohol. REVIEW OF SYSTEMS: CONSTITUTIONAL: No fever or chills, no recent weight loss or weight gain. HEENT: No headaches, vision changes, ear pain, nasal congestion or throat pain. RESPIRATORY: No cough, hemoptysis or pleuritic chest pain. CARDIOVASCULAR: No chest pains, palpitations or peripheral edema. GASTROINTESTINAL: No nausea, vomiting or diarrhea. She does have chronic constipation. She does have some discomfort on her abdomen after the fall. GENITOURINARY: No dysuria, frequency or flank pain. MUSCULOSKELETAL: Left forearm pain. HEMATOLOGIC: Positive for easy bruising but no transfusion reactions. NEUROLOGIC: No seizures, paresthesias or syncope. ENDOCRINE: No polydipsia, polyuria or polyphagia. No heat or cold intolerance. PHYSICAL EXAMINATION: VITAL SIGNS: Blood pressure 127/84, heart rate 89, respiratory rate 16, temperature afebrile, O2 saturation 94%. GENERAL: Ms. Matthews is a 63 year-old female in no active distress at this time. HEENT: Head: Normocephalic and atraumatic. Eyes: Pupils equal and reactive. Nose: No drainage. Throat: Moist mucosa. NECK: Supple. Midline trachea. No jugular venous distention. CHEST: Symmetric with equal rise and fall of the chest with inspiration and expiration. Lung sounds are clear to auscultation bilaterally. CARDIOVASCULAR: The patient has a regular rate and rhythm. Normal S1 and S2. ABDOMEN: Soft, positive bowel sounds. She does have an abdominal wall hematoma which is a little bit tender to palpation. GENITOURINARY: Exam is deferred. EXTREMITIES: Lower extremities with no edema, 2+ pulses, capillary refill less than 2 seconds. NEUROLOGIC: The patient is alert and oriented. Moves all extremities. Extraocular movements are intact. LABORATORY: Labs and films are as discussed in the History of Present Illness. ASSESSMENT: 1. Fall resulting in a left tenth rib fracture. 2. Hyponatremia. 3. Elevated amylase and lipase. 4. History of cirrhosis. 5. Hepatic encephalopathy with a current normal ammonia level. 6. Dehydration as evidenced by her elevated BUN. PLAN: We are going to place her on some normal saline and give some p.r.n. medications for pain. I did discuss her home medications with her and we are going to get an accurate list from [facility]. If her labs are improved tomorrow she can likely go home, but will just ensure that the hemoglobin stays stable, her abdominal pain does not get worse, and her labs normalize. I am going to hold off on any anticoagulation due to her recent anemia requiring transfusion. #[id number] [facility]
[2018-08-28] MEDS ORDERED: SODIUM CHLORIDE 0.9% 1000ML 1,000 ML IVS PRN (16:06)
[2018-08-28] MEDS ORDERED: SODIUM CHLORIDE 0.9% (FLUSH) 10 ML SYG IV PRN (16:06)
[2018-08-28] MEDS: MORPHINE SULFATE INJ 10 MG/ML VIAL IV PRN ×2 (16:20→20:31)
[2018-08-28] MEDS ORDERED: IV SET AND CAP CHANGE INJ INJ SCH (16:30)
[2018-08-28] MEDS ORDERED: MELATONIN 3 MG TAB ONE (20:11)
[2018-08-28] MEDS: LACTULOSE SYRUP 20 GM/30 ML UD PO SCH ×2 (20:17→20:43)
[2018-08-28] MEDS ORDERED: NON-FORMULARY MEDICATION 1 EA MIS (Melatonin [Melatonin] 20 MG) PO SCH (21:00)
[2018-08-28] MEDS ORDERED: SERTRALINE HCL 50 MG TAB PO SCH (21:00)
[2018-08-28] MEDS ORDERED: GABAPENTIN 300 MG CAP PO SCH (21:00)
[2018-08-28] MEDS ORDERED: MELATONIN PO SCH (21:00)
[2018-08-28] MEDS ORDERED: MELATONIN 3 MG TAB PO SCH (21:00)
[2018-08-29] MEDS: MORPHINE SULFATE INJ 10 MG/ML VIAL IV PRN ×2 (00:23→04:13)
[2018-08-29] MEDS ORDERED: HYDROcodone 5MG/APAP 325MG 1 EA TAB ONE (08:31)
[2018-08-29] MEDS ORDERED: RIFAXIMIN 550 MG PO SCH (09:00)
[2018-08-29] MEDS ORDERED: SPIRONOLACTONE 25 MG TAB PO SCH (09:00)
[2018-08-29] MEDS ORDERED: HYDROcodone 5MG/APAP 325MG 1 EA TAB PO ONE (09:05)
[2018-08-29] MEDS: LACTULOSE SYRUP 20 GM/30 ML UD PO SCH (09:07)
[2018-08-29 10:06] VITALS: BP 100/66; TEMP 98.5; O2SAT 92
--- NOTE | 2018-08-29 18:11 | DS ---
SUPERVISING PHYSICIAN: Donald Roberto M.D. ADMISSION DIAGNOSIS: 1. Fall resulting in a left tenth rib fracture. 2. Hyponatremia. 3. Elevated amylase and lipase. 4. History of cirrhosis. 5. History of hepatic encephalopathy with a current normal ammonia level. 6. Dehydration. DISCHARGE DIAGNOSIS: 1. Fall resulting in a left tenth rib fracture. 2. Hyponatremia. 3. Elevated amylase and lipase. 4. History of cirrhosis. 5. History of hepatic encephalopathy with a current normal ammonia level. 6. Dehydration. HOSPITAL COURSE: This 63 year-old female who tripped and fell over a cord at home striking her heater and the left side of her head. She had some pain in her left forearm, bilateral chest and upper abdomen. CT scan of the abdomen and pelvis showed cirrhosis with splenomegaly, chronic diverticulosis and constipation with stranding in the subcutaneous tissue of the anterior abdomen consistent with contusion as well as an acute fracture of the lateral aspect of the right tenth rib. She also showed a low sodium at 126 and an elevated amylase and lipase of 116 and 83. For those reasons she was admitted for observation. She also had a recent admission back earlier this year for anemia. She was given 4 units of packed red blood cells at that time. Her hemoglobin was 10 in the Emergency Room, so she was admitted and placed on normal saline. Repeat lab this morning showed improvement in her sodium to 129 and amylase and lipase had gone down. She still complains of some rib pain but it is tolerable. Therefore today she is being discharged home in stable condition. I have written a prescription for Tramadol for discomfort. I have instructed her to take deep breaths and cough to avoid atelectasis and pneumonia due to the rib fracture. She has been instructed to followup with Lucy Chappell in 1 to 2 weeks as well. Resume her other home medications as well. [id number]
== END 2018-08-29 11:30 | disposition home or self-care (01) ==
LOC: ER 12:28 → MS 15:31
PROVIDERS: ADMIT Nurse Practitioner; ATTEND Nurse Practitioner
DX: S22.32XA Fracture of one rib, left side, initial encounter for closed fracture (principal); S30.1XXA Contusion of abdominal wall, initial encounter; E87.1 Hypo-osmolality and hyponatremia; E86.0 Dehydration; R74.8 Abnormal levels of other serum enzymes; R51 Headache; M79.632 Pain in left forearm; K70.31 Alcoholic cirrhosis of liver with ascites; K70.40 Alcoholic hepatic failure without coma; I10 Essential (primary) hypertension; M50.322 Other cervical disc degeneration at C5-C6 level; F32.9 Major depressive disorder, single episode, unspecified; I70.0 Atherosclerosis of aorta; K57.30 Diverticulosis of large intestine without perforation or abscess without bleeding; K59.00 Constipation, unspecified; W01.198A Fall on same level from slipping, tripping and stumbling with subsequent striking against other object, initial encounter; Y92.009 Unspecified place in unspecified non-institutional (private) residence as the place of occurrence of the external cause; Z79.899 Other long term (current) drug therapy; Z88.6 Allergy status to analgesic agent; Z91.041 Radiographic dye allergy status; Z87.891 Personal history of nicotine dependence
CPT/HCPCS: 96374; 96376 ×2; J2270 ×4; J7030; 80053 ×2; 36415 ×3; 82140; 82150 ×2; 85025 ×2; 83690 ×2; 85730; 85610; 71045; 73090; 70450; 72125; 71250; 74176; 99285

== ENCOUNTER 2018-09-02 20:01 | Observation (INO) | payer SELFPAY ==
[2018-09-02] MEDS ORDERED: BENZTROPINE MESYLATE TAB 1 MG TAB PO ONE (20:24)
[2018-09-02] MEDS ORDERED: MAGNESIUM SULFATE PREMIX 4GM 4 GM in PREMIX BAG 1 BAG IVPB ONE (21:13)
[2018-09-02] MEDS ORDERED: SOD CHL 3% *HYPERTONIC* 500ML 160 ML IVS ONE (21:13)
[2018-09-02] MEDS ORDERED: LACTULOSE SYRUP 20 GM/30 ML UD PO ONE (21:23)
[2018-09-02] MEDS ORDERED: MAGNESIUM SULFATE PREMIX 4GM 50 ML IVPB ONE (21:30)
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
--- NOTE | 2018-09-02 21:44 | CT ---
EXAM DESCRIPTION: CT of the head without contrast CLINICAL HISTORY: confusion COMPARISON: 08/28/2018 TECHNIQUE: Axial CT of the head obtained from the skull apex to the skull base without contrast. Motion artifact. FINDINGS: No acute intracranial hemorrhage identified. No mass, mass effect, shift of the midline, abnormal extra-axial fluid collection or CT evidence of acute ischemic change identified. The ventricular system and sulcal spaces have normal size and morphology. Scattered areas of hypodensity throughout the supratentorial white matter are nonspecific and may be related to chronic small vessel ischemic change. The visualized paranasal sinuses and the mastoids are clear. No skull fracture identified. Visualized orbits and globes are unremarkable. Atherosclerotic calcification of the intracranial internal carotid arteries. DLP: 859.97 mGy-cm IMPRESSION: 1. No acute intracranial abnormality by CT criteria. This exam was performed according to our departmental dose-optimization program, which includes automated exposure control, adjustment of the mA and/or kV according to patient size and/or use of iterative reconstruction technique. Electronically signed by: Jan Granados 09/02/2018 9:41 PM CDT
--- NOTE | 2018-09-02 21:46 | RAD ---
EXAM DESCRIPTION: 2 views of the chest CLINICAL HISTORY: confusion, recent rib fxr COMPARISON: 08/28/2018 FINDINGS: Frontal and lateral views of the chest. The cardiomediastinal silhouette has normal size and contour. No consolidation, pneumothorax, or pleural effusion. Low lung volumes. Known rib fractures are not well evaluated on this study. Degenerative change of the spine. Upper abdominal soft tissues are unremarkable. Elevation of the right hemidiaphragm. IMPRESSION: 1. No acute pneumonic process identified. Electronically signed by: Jan Granados 09/02/2018 9:42 PM CDT
[2018-09-02] MEDS ORDERED: SODIUM CHLORIDE 0.9% 1000ML 1,000 ML IVS PRN (22:42)
[2018-09-02] MEDS ORDERED: SODIUM CHLORIDE 0.9% (FLUSH) 10 ML SYG IV PRN (22:42)
[2018-09-02] MEDS ORDERED: IV SET AND CAP CHANGE INJ INJ SCH (23:00)
[2018-09-03] MEDS ORDERED: SPIRONOLACTONE 25 MG TAB PO SCH (09:00)
[2018-09-03] MEDS ORDERED: RIFAXIMIN 550 MG PO SCH (09:00)
[2018-09-03] MEDS ORDERED: amLODIPine BESYLATE 5 MG TAB PO SCH (09:00)
[2018-09-03] MEDS ORDERED: FUROSEMIDE 40 MG TAB PO SCH (09:00)
[2018-09-03] MEDS ORDERED: LACTULOSE SYRUP 20 GM/30 ML UD PO SCH (09:00)
[2018-09-03 11:15] VITALS: BP 120/73; TEMP 97.6; O2SAT 94
--- NOTE | 2018-09-03 17:19 | SSS ---
SUPERVISING PHYSICIAN: Donald Roberto M.D. CHIEF COMPLAINT: Worsening confusion. HISTORY OF PRESENT ILLNESS: Ms. Matthews is a 63 year-old female patient who has a history of cirrhosis and has been admitted several times for hepatic encephalopathy secondary to high ammonia levels. Her endorses over the last 2 days the patient has been somewhat more confused than normal and has started having some abnormal movements of her face and mouth. The patient does have a history of chronic tardive dyskinesia on previous antipsychotic regimen medication. In the E. R., laboratory studies showed that she had an ammonia level of 53 but liver functions were all showing to be within normal limits, but AST was elevated at 47. All other liver functions were within normal limits. She also had a serum sodium level at 127. Amylase and lipase were showing to be normal. She does take Lactulose twice daily and has had previous paracentesis for ascites. In the E. R., Dr. Corea started the patient on a hypertonic saline solution and gave an additional dose of Lactulose as well as Cogentin. The patient is now going to be placed in observation for ongoing evaluation and treatment of hepatic encephalopathy secondary to elevated ammonia levels and hyponatremia. PAST MEDICAL HISTORY: 1. Cirrhosis with chronic elevated ammonia levels. 2. Depression. 3. Hypertension. 4. Chronic anemia. PAST SURGICAL HISTORY: 1. Hysterectomy. 2. Right renal artery aneurysm repair in 2007. 3. Tonsillectomy and adenoidectomy. CURRENT MEDICATIONS: 1. Tramadol 50 mg every 6 hours as needed. 2. Spironolactone 25 mg twice daily. 3. Zoloft 100 mg at bedtime. 4. Rifaximin 550 mg twice daily. 5. Melatonin 20 mg at bedtime. 6. Lactulose 30 mL b.i.d. 7. Neurontin 300 mg at bedtime. 8. Lasix 40 mg daily. 9. Amlodipine 10 mg daily. ALLERGIES: CODEINE AND IV CONTRAST. FAMILY HISTORY: Positive for kidney cancer, chronic obstructive pulmonary disease, cardiovascular disease, liver failure with anemia and congestive heart failure with thyroid cancer. SOCIAL HISTORY: The patient lives in [place]. She is retired. She smoked a pack and a half a day for 20 years, but quit 10 years previously. She social drinks alcohol. REVIEW OF SYSTEMS: CONSTITUTIONAL: Denies any fevers, chills, unintentional weight gain or loss. HEENT: Negative for headaches, vision changes, ear pain, nasal congestion or sore throat. RESPIRATORY: Negative for cough, hemoptysis of pleuritic chest pain. CARDIOVASCULAR: Negative for chest pains, palpitations or peripheral edema. GASTROINTESTINAL: Negative for nausea, vomiting, diarrhea. She does have a history of chronic constipation but does not have any abdominal pain and has chronic ascites due to liver cirrhosis. GENITOURINARY: Negative for any dysuria, polyuria or flank pain. MUSCULOSKELETAL: No complaints. HEMATOLOGIC: Positive for easy bruising but no unexplained bleeding or transfusion reaction. NEUROLOGIC: Positive for confusion. Negative for any seizures, paresthesias or syncopal episodes. Positive for chronic tardive dyskinesia more prominent to the head and neck. No new neurological symptoms. ENDOCRINE: Negative for any polydipsia, polyuria or polyphagia. PHYSICAL EXAMINATION: VITAL SIGNS: Temperature 98.6, pulse 77, blood pressure 110/66, respirations 20, satting 96% on room air. Admission weight 65.1 kg. GENERAL: The patient is alert. Appears to be in no acute distress. She does have some dyskinetic movement types to the face and neck that are chronic. HEENT: Tympanic membranes are clear bilaterally. Oropharynx was pink and moist without any lesions. NECK: Supple, full range of motion. No jugular venous distention. CHEST: Lungs are clear to auscultation without any rhonchi, wheezing or rales. CARDIOVASCULAR: Regular rate and rhythm without appreciable murmurs, gallops, or rubs. ABDOMEN: Non-tender, soft, nondistended. BACK: No CVA tenderness. No vertebral tenderness. EXTREMITIES: No pedal edema. No cyanosis or clubbing. NEUROLOGIC: Cranial nerves II-XII are grossly intact. She is alert and oriented times three. SKIN: Exam is normal. LABORATORY STUDIES: White count 4,100, hemoglobin 8.6, hematocrit 26.9, platelet count 185,000. Differential shows to be without a left shift. Chemistries shows sodium initially at 127, at discharge was 132. Potassium is normal at 3.8, BUN 18, creatinine 0.88, glucose 83 at discharge, on admission was 113. Calcium was both normal on admission and discharge at 8.4. Magnesium was low at 1.4, prior to replaced parenterally. AST was elevated initially on admission at 47 but normalized to 40 prior to discharge. ALT was showing to be normal at 22 and 20 at discharge with alkaline phosphatase showing elevation at 125, prior to discharge was 106. Ammonia level initially on admission was 53, prior to discharge was 30. Amylase and lipase were both within normal limits. Urinalysis showed to be within normal limits. RADIOLOGY: She had a chest x-ray per and radiology interpretation no acute pneumonic process identified. She also had a CT of the head and per radiology interpretation no acute intracranial abnormalities by CT criteria. HOSPITAL COURSE: Ms. Matthews was admitted from the . last night with some mild confusion secondary to elevated ammonia levels. She was also noted to have some dyskinetic type movements of her face and head. She was given Lactulose, Cogentin and normal saline infusion to help correct her sodium levels. The patient tolerated treatment well. This morning her ammonia level normalized. Sodium was back to normal levels and she was not showing any signs of confusion, and was seen to be clinically improved and was anxious to be discharged. I did discuss with her the tardive dyskinesia and she notes that that is chronic for her, especially since she was on previous antipsychotics. The patient is felt to be clinically stable and improved enough to discharge to continue with outpatient management. ADMISSION DIAGNOSIS: 1. Hepatic encephalopathy secondary to elevated ammonia levels with a history of liver cirrhosis. 2. Acute mental status change secondary to #1. 3. Electrolyte imbalance with hyponatremia likely contributing to acute mental status change and confusion. 4. History of chronic tardive dyskinesia affecting the face and neck showing some slight worsening likely due to #1. DISCHARGE DIAGNOSIS: 1. Hepatic encephalopathy secondary to elevated ammonia levels with a history of liver cirrhosis, resolved with ammonis levels. 2. Hyponatremia, resolved with IV fluids. 3. Acute mental status change secondary to #1, resolving with correction of ammonia levels. 4. History of chronic tardive dyskinesia, chronic, showing some improvement with Cogentin. PLAN: Ms. Matthews is clinically improved back to baseline levels and is discharged to followup with her primary care provider, Lucy Chappell, in the following week. She is to resume her home medications as instructed prior to hospitalization as listed below. Diet is 2 gram sodium diet. Activity is increase as tolerated. MEDICATIONS AT DISCHARGE: No additional new medications were prescribed. She is discharged on her home medications which included: 1. Tramadol. 2. Spironolactone. 3. Zoloft. 4. Rifaximin. 5. Melatonin. 6. Lactulose syrup. 7. Gabapentin. 8. Lasix. 9. Amlodipine. Condition at discharge was stable and improved. DISPOSITION: The patient is discharged to the care of her family. #[id number] [facility]
[2018-09-03] MEDS ORDERED: SERTRALINE HCL 50 MG TAB PO SCH (21:00)
[2018-09-03] MEDS ORDERED: NON-FORMULARY MEDICATION 1 EA MIS (Melatonin [Melatonin] 20 MG) PO SCH (21:00)
[2018-09-03] MEDS ORDERED: GABAPENTIN 300 MG CAP PO SCH (21:00)
== END 2018-09-03 11:05 | disposition home or self-care (01) ==
LOC: ER 20:01 → MS 21:51
PROVIDERS: ADMIT Nurse Practitioner Family; ATTEND Nurse Practitioner Family
DX: K72.90 Hepatic failure, unspecified without coma (principal); E72.20 Disorder of urea cycle metabolism, unspecified; K74.60 Unspecified cirrhosis of liver; E87.1 Hypo-osmolality and hyponatremia; E83.42 Hypomagnesemia; R41.82 Altered mental status, unspecified; G24.01 Drug induced subacute dyskinesia; M62.838 Other muscle spasm; I11.0 Hypertensive heart disease with heart failure; I50.9 Heart failure, unspecified; F32.9 Major depressive disorder, single episode, unspecified; Z79.899 Other long term (current) drug therapy; Z88.6 Allergy status to analgesic agent; Z91.041 Radiographic dye allergy status; Z87.891 Personal history of nicotine dependence
CPT/HCPCS: 96366 ×2; 96367; 96365; J7030; J7799; J3475; 80053 ×2; 36415 ×2; 82140 ×2; 82150; 81001; 85025 ×2; 83690; 83735; 71046; 70450; 94760 ×2; 99285; G0378

== ENCOUNTER → 2018-10-04 | Outpatient (CLI) | payer SELFPAY | LOC: LAB.O 10:03 | PROVIDERS: ATTEND Nurse Practitioner Family | DX: K74.60 Unspecified cirrhosis of liver (principal) ==

== ENCOUNTER 2018-10-14 19:28 | Emergency (ER) | payer SELFPAY ==
[2018-10-14 19:45] VITALS: TEMP 97.8
--- NOTE | 2018-10-14 20:11 | ED.PDOC ---
History of Present Illness - General Chief Complaint: Neuro Symptoms/Deficits Stated Complaint: having some confusion Time Seen by Provider: 10/14/18 20:09 Source: patient Exam Limitations: no limitations - History of Present Illness Initial Comments: Liliana Matthews 63 y/o female brought by to ER after she was found to be confused talking about the Md that she had not seen for over a year and also she was noted to have tremors.Has been diagnosed with liver cirrhosis and was recently hospitalized in [place] for hepatic encephalopathy.Had also paracentesis done by Dr. Rebollar in the past.On her arrival shewas talking ,knows where she is and where she lives.Talking to Timing/Duration: 4-6 hours Severity: moderate Episode Description: see hpi Improving Factors: nothing Worsening Factors: nothing Associated Symptoms: other - see hpi Allergies/Adverse Reactions: Allergies Codeine Allergy (Verified 08/28/18 17:00) Other Causes itching IV Contrast Allergy (Severe, Uncoded 08/28/18 15:44) Anaphylaxis per patient, SOB, throat closes dye Allergy (Uncoded 08/28/18 15:44) Rash Rash and makes her have a burning sensation inside Home Medications: Ambulatory Orders Sertraline HCl [Zoloft] 100 mg PO BEDTIME 04/19/15 Melatonin 20 mg PO BEDTIME 04/26/18 Furosemide Tab [Lasix Tab] 40 mg PO DAILY #30 tab 08/11/18 Gabapentin [Neurontin] 300 mg PO BEDTIME #30 cap 08/11/18 Lactulose Syrup [Chronulac] 30 ml PO BID 08/28/18 Spironolactone 25 mg PO 0900,1700 08/28/18 Tramadol HCl 50 mg PO Q6HR PRN 30 Days #120 tab 08/29/18 Amlodipine Besylate 10 mg PO DAILY 09/02/18 Review of Systems - Review of Systems Constitutional: States: no symptoms reported EENTM: States: no symptoms reported Respiratory: States: no symptoms reported Cardiology: States: no symptoms reported Gastrointestinal/Abdominal: States: see HPI, other - ascites Musculoskeletal: States: no symptoms reported Skin: States: no symptoms reported Neurological: States: see HPI, other - confusion All other Systems: Reviewed and Negative, No Change from Baseline Past Medical History (General) - Patient Medical History Hx Seizures: No Hx Stroke: No Hx Dementia: No Hx Asthma: No Hx of COPD: No Hx Cardiac Disorders: Yes Hx Congestive Heart Failure: Yes Hx Pacemaker: No Hx Hypertension: Yes Hx Thyroid Disease: No Hx Diabetes: No Hx Gastroesophageal Reflux: Yes - liver cirrohsis Hx Renal Disease: No Hx Cancer: No Hx of HIV: No Hx Hepatitis C: No Hx MRSA: No Surgical History: tonsillectomy, Hysterectomy - Vaccination History Hx Tetanus, Diphtheria Vaccination: No Hx Influenza Vaccination: No Hx Pneumococcal Vaccination: No - Social History Hx Tobacco Use: Yes Hx Alcohol Use: No - 4 months sober Hx Substance Use: No Hx Substance Use Treatment: No Hx Depression: No Hx Physical Abuse: No Hx Emotional Abuse: No Hx Suspected Abuse: No - Female History Patient : No Family Medical History - Family History Mother Family History: Unknown Living Status: Hx Family Asthma: No Hx Family Congestive Heart Failure: No Hx Family Hypertension: No Hx Family Stroke: No Hx Cardiac Disease: Yes Hx Family Diabetes: No Hx Family Cancer: Yes Father Living Status: Hx Family Asthma: No Hx Family Congestive Heart Failure: No Hx Family Hypertension: Yes Hx Family Stroke: Yes Hx Cardiac Disease: No Hx Family Diabetes: No Hx Family Cancer: Yes Physical Exam - Physical Exam General Appearance: Alert, Comfortable, No apparent distress Eye Exam: bilateral normal ENT Exam: normal ENT inspection, hearing grossly normal, pharynx normal Neck: non-tender, full range of motion, supple, normal inspection, trachea midline Respiratory: chest non-tender, lungs clear, normal breath sounds, no respiratory distress Cardiovascular/Chest: normal peripheral pulses, regular rate, rhythm, no murmur Peripheral Pulses: radial,right: 2+, radial,left: 2+ Gastrointestinal/Abdominal: non tender, soft, other - slightly distended from ascitic fluid;prominent spider veins Back Exam: no CVA tenderness, no vertebral tenderness Extremities Exam: non-tender, normal range of motion Mental Status: alert, 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 x 3 - 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 Exam: normal hearing, normal speech, PERRL Coordination/Gait: normal gait Motor/Sensory: no motor deficit, no sensory deficit, no pronator drift, other - slight resting tremor Skin Exam: normal color, warm/dry Progress - Progress Progress: 10/14/18 22:21 Vital Signs - 8 hr 10/14/18 19:35 Temperature 97.8 F Pulse Rate [ 94 H Left Brachial] Respiratory 20 Rate Blood Pressure 139/83 [Left Arm] O2 Sat by Pulse 98 Oximetry - Results/Orders Results/Orders: 10/14/18 20:12 IV Care:Saline Lock per Protoc QSHIFT 10/14/18 21:00 Multiple Vitamin Inj [MVI Injectable] 10 ml Thiamine HCl Inj 100 mg Sodium Chloride 0.9% 1000ML [Ns 1000 ml] 1,000 ml IVS Q24H 10/14/18 22:07 ETHYL ALCOHOL (ETOH) Stat URINALYSIS Stat 10/15/18 07:30 Potassium Chloride Tab [Micro-K] 10 meq PO DAILYBK Laboratory Results - last 24 hr 10/14/18 10/14/18 10/14/18 20:00 20:00 20:00 WBC 6.2 RBC 4.17 L Hgb 11.0 L Hct 33.3 L MCV 79.9 L MCH 26.4 L MCHC 33.1 RDW 19.9 H Plt Count 243 MPV 7.2 L Absolute Neuts (auto) 4.40 Absolute Lymphs (auto) 1.00 Absolute Monos (auto) 0.50 Absolute Eos (auto) 0.20 Absolute Basos (auto) 0.10 Neutrophils % 70.8 Lymphocytes % 16.2 L Monocytes % 8.8 Eosinophils % 3.3 Basophils % 0.9 PT INR PTT (SP) Sodium 132 L Potassium 2.9 L Chloride 103 Carbon Dioxide 17 L Anion Gap 14.9 BUN 22 H Creatinine 1.22 BUN/Creatinine Ratio 18.0 Random Glucose 97 Serum Osmolality 267.8 L Calcium 9.3 Magnesium Total Bilirubin 0.9 Direct Bilirubin 0.2 Indirect Bilirubin Cancelled AST 56 H ALT 25 Alkaline Phosphatase 133 H Ammonia 26 Serum Total Protein 10.0 H Albumin 3.7 Globulin 6.3 H Albumin/Globulin Ratio 0.6 L Urine Opiates Screen Urine Barbiturates Ur Phencyclidine Scrn U Amphetamin/Meth Scrn U Benzodiazepines Scrn U Cocaine Metab Screen U Cannabinoids Screen 10/14/18 10/14/18 10/14/18 20:00 20:00 21:35 WBC RBC Hgb Hct MCV MCH MCHC RDW Plt Count MPV Absolute Neuts (auto) Absolute Lymphs (auto) Absolute Monos (auto) Absolute Eos (auto) Absolute Basos (auto) Neutrophils % Lymphocytes % Monocytes % Eosinophils % Basophils % PT 11.9 H INR 1.19 H PTT (SP) 24.6 Sodium Potassium Chloride Carbon Dioxide Anion Gap BUN Creatinine BUN/Creatinine Ratio Random Glucose Serum Osmolality Calcium Magnesium 1.4 L Total Bilirubin Direct Bilirubin Indirect Bilirubin AST ALT Alkaline Phosphatase Ammonia Serum Total Protein Albumin Globulin Albumin/Globulin Ratio Urine Opiates Screen Negative Urine Barbiturates Negative Ur Phencyclidine Scrn Negative U Amphetamin/Meth Scrn Negative U Benzodiazepines Scrn Negative U Cocaine Metab Screen Negative U Cannabinoids Screen Negative - EKG/XRAY/CT XRAY: chest - mno acute abnormalities CT Ordered: Yes - head-no acute intra cranial abnormality Departure - Departure Clinical Impression: Confusion, Alcoholic cirrhosis of liver with ascites Time of Disposition: 22:25 Disposition: Discharge to Home or Self Care Condition: Fair Departure Forms: ED Discharge - Pt. Copy, Patient Portal Self Enrollment Referrals: Nancy Chappell NP [Primary Care Provider] - 1-2 Weeks Home Medications: Ambulatory Orders Sertraline HCl [Zoloft] 100 mg PO BEDTIME 04/19/15 Melatonin 20 mg PO BEDTIME 04/26/18 Furosemide Tab [Lasix Tab] 40 mg PO DAILY #30 tab 08/11/18 Gabapentin [Neurontin] 300 mg PO BEDTIME #30 cap 08/11/18 Lactulose Syrup [Chronulac] 30 ml PO BID 08/28/18 Spironolactone 25 mg PO 0900,1700 08/28/18 Tramadol HCl 50 mg PO Q6HR PRN 30 Days #120 tab 08/29/18 Amlodipine Besylate 10 mg PO DAILY 09/02/18 Additional Instructions: Continue with all home medications;Take over the counter Potassium tablet one tablet daily for 10 days;Nature Made Super B-Complex Vitamins one tablet am/pm;Return to Emergency room as needed;follow up with primary Md 16 Oct 2018 for recheck
[2018-10-14] MEDS ORDERED: SODIUM CHLORIDE 0.9% 1000ML 1,000 ML ONE (21:00)
[2018-10-14] MEDS ORDERED: MULTIPLE VITAMIN INJ 10 ML, THIAMINE HCL INJ 100 MG in SODIUM CHLORIDE 0.9% 1000ML 1,00... IVS SCH (21:00)
[2018-10-14] MEDS ORDERED: MULTIPLE VITAMIN 10 ML VIAL ONE (21:00)
[2018-10-14] MEDS ORDERED: THIAMINE HCL INJ 100 MG/ML VIAL ONE (21:00)
[2018-10-14] MEDS ORDERED: POTASSIUM CHLORIDE 10 MEQ TAB PO ONE (21:01)
--- NOTE | 2018-10-14 21:20 | RAD ---
EXAM DESCRIPTION: XR Chest,1 View CLINICAL HISTORY: 63 years Female ams TECHNIQUE: One frontal view of the chest. COMPARISON: Comparison is made to the prior examination dated 09/02/2018. FINDINGS: The lungs are clear without focal consolidation, effusion, or pneumothorax. Aortic atherosclerosis. The cardiomediastinal silhouette and central pulmonary vasculature are otherwise normal. Healed left posterolateral rib fractures. No visualized acute fracture. IMPRESSION: No acute cardiopulmonary abnormalities. Electronically signed by: Angelia Syed MD 10/14/2018 9:17 PM CDT
--- NOTE | 2018-10-14 21:22 | CT ---
PROCEDURE: CT Head CLINICAL HISTORY: 63 years Female AMS TECHNIQUE: Contiguous axial CT images obtained through the brain without IV contrast. This CT exam was performed according to our departmental dose-optimization program, which includes one or more of the following dose reduction techniques: automated exposure control, adjustment of the mA and/or kV according to patient size, and/or use of iterative reconstruction technique. COMPARISON: Comparison is made to the prior examination dated 09/02/2017. FINDINGS: There is no intracranial hemorrhage, extraaxial collection, or acute transcortical infarction. The ventricles are normal in size and contour without mass-effect or midline shift. Osseous structures are normal. The paranasal sinuses and mastoid air cells are clear. IMPRESSION: No acute intracranial abnormalities. Electronically signed by: Angelia Syed MD 10/14/2018 9:20 PM CDT
[2018-10-14 22:37] VITALS: BP 134/85; O2SAT 95
[2018-10-15] MEDS ORDERED: POTASSIUM CHLORIDE 10 MEQ TAB PO SCH (07:30)
== END 2018-10-14 22:38 | disposition home or self-care (01) ==
LOC: SUPCPDRO 19:28 → ER 19:28
DX: R41.0 Disorientation, unspecified (principal); K70.31 Alcoholic cirrhosis of liver with ascites; I50.9 Heart failure, unspecified; I11.0 Hypertensive heart disease with heart failure; Z87.891 Personal history of nicotine dependence; Z79.899 Other long term (current) drug therapy; Z88.5 Allergy status to narcotic agent; Z91.041 Radiographic dye allergy status
CPT/HCPCS: 70450; 71045; 80053; 80307; 81001; 82140; 82248; 83735; 85025; 85610; 85730; J3411; J7030

== ENCOUNTER → 2018-10-20 | Outpatient (CLI) | payer SELFPAY | LOC: LAB.O 08:50 | PROVIDERS: ATTEND Nurse Practitioner Family | DX: K74.60 Unspecified cirrhosis of liver (principal) ==

== ENCOUNTER 2018-11-30 | Emergency (ER) | payer SELFPAY | END 2018-11-30 16:21 | disposition home or self-care (01) ==

== ENCOUNTER 2018-12-22 11:52 | Inpatient (IN) | payer SELFPAY ==
--- NOTE | 2018-12-22 14:38 | HP ---
SUPERVISING PHYSICIAN: Jan Spence M.D. CHIEF COMPLAINT: Shortness of breath and abdominal pain with tightness. HISTORY OF PRESENT ILLNESS: This is a 63 year-old female patient who was in her primary care provider's office, KATE Willett, for followup for abdominal pain with shortness of breath. She has a significant history of cirrhosis and has had multiple admissions in the last 6 months. She has had a paracentesis in the past. In her PCP's office today she complained of shortness of breath as well as tightness in her abdomen. She was having difficulty with the pressure in her stomach. There was no nausea or vomiting. She also has a history of electrolyte imbalance. Her ammonia was high at 58. Zahra Whitt called me to discuss admitting the patient for treatment as well as possible paracentesis. Dr. Kruger, general surgeon, was called and he agreed to do the paracentesis at the bedside. She was admitted to the hospital and initially her vital signs showed a temperature of 99.4 with a heart rate of 86, blood pressure 113/71, respiratory rate 16, O2 sat 96%. Her lab was done and WBCs were 8,400. She did have a left shift on differential. Hemoglobin is 8.8, hematocrit 26.9. PT was 12, INR 1.2, PTT 27.5. Sodium 134, potassium 3.5, chloride 102, carbon dioxide 17, BUN 23, creatinine 1.42, serum osmolality 270.7. AST 62, ALT 27, alkaline phosphatase 134, ammonia 58, BNP 299, albumin 3, serum total protein 8.8, iron 17, TIBC 295.4, iron saturation 5.7. A paracentesis ultrasound was obtained and areas on her abdomen were marked. Dr. Donald Kruger, general surgeon, came in and did a paracentesis on the patient and 4,700 mL of clear yellow fluid was returned. The patient tolerated the procedure the procedure without any problems. PAST MEDICAL HISTORY: 1. Depression. 2. Hypertension. 3. Chronic anemia. 4. Cirrhosis. PAST SURGICAL HISTORY: 1. Hysterectomy. 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 3. Tonsillectomy and adenoidectomy. CURRENT MEDICATIONS: 1. Amlodipine. 2. Potassium. 3. Furosemide. 4. Gabapentin. 5. Lactulose. 6. Sertraline. 7. Spironolactone. 8. Temazepam. 9. Tramadol. 10. Xifaxan. ALLERGIES: IV CONTRAST AND CODEINE. FAMILY HISTORY: Positive for kidney cancer, chronic obstructive pulmonary disease, coronary artery disease, liver failure, anemia, congestive heart failure and thyroid cancer. SOCIAL HISTORY: She lives in [place]. She is . She is retired. She smoked a pack and a half of cigarettes for 20 years, but quit about 10 years ago. She quit drinking alcoholic beverages approximately 9 months ago. She denies any illicit drug use. REVIEW OF SYSTEMS: GENERAL: Denies fever, chills, weight loss or weight gain. HEENT: Positive for mild nose bleeds. Denies headaches, vision changes, ear pain, nasal congestion or sore throat. RESPIRATORY: Positive for shortness of breath and a mild cough. Negative for wheezing. CARDIOVASCULAR: Negative for chest pains, palpitations or tachycardia. GASTROINTESTINAL: Positive for abdominal pain and discomfort and tightness. Negative for nausea, vomiting or diarrhea. GENITOURINARY: Negative for dysuria, polyuria or hematuria. MUSCULOSKELETAL: Negative for arthralgias or myalgias. HEMATOLOGIC: Positive for easy bruising but she has had no history of transfusion reactions. NEUROLOGIC: Positive for weakness and a mild headache. Negative for seizures. PHYSICAL EXAMINATION: VITAL SIGNS: Temperature 99.4, heart rate 86, blood pressure 113/71, respiratory rate 16, O2 sat 96% on room air. GENERAL: This is a 63 year-old female patient who is lying in her hospital bed. She is in no acute distress. HEENT: Normocephalic and atraumatic. Pupils are equal and reactive. Oropharynx is clear. NECK: Supple without mass. RESPIRATORY: Essentially clear to auscultation bilaterally, somewhat diminished at the bases. CHEST: There is equal rise and fall of the chest with inspiration and expiration. CARDIOVASCULAR: Regular rate and rhythm. GASTROINTESTINAL: Abdomen is rounded. It is somewhat firm. Bowel sounds are positive. GENITOURINARY: Deferred. EXTREMITIES: No clubbing, cyanosis or edema. NEUROLOGIC: She is awake, alert and oriented times three. LABORATORY: Labs and films are as per the history of present illness. ASSESSMENT: 1. Cirrhosis of the liver with ascites. 2. Elevated ammonia. 3. Iron-deficiency anemia. 4. Acute on chronic renal failure. Her baseline creatinine is 1. Her admitting creatinine is 1.43. 5. Mild electrolyte imbalance, mainly hyponatremia and hypokalemia. 6. Elevated liver function tests most likely secondary to #1. 7. Hypertension on medications. 8. Depression on medications. PLAN: The patient has been admitted to the hospital. Dr. Kruger has been consulted and he has performed a paracentesis on the patient removing 4700 mL of pleural fluid. I have restarted her home medications, but I have given her an extra dose of Lactulose and will recheck her ammonia level in the morning. I will also check a CBC in the morning to make sure she does not need a transfusion. I have given her 1 liter of fluids with some potassium to help with the mild dehydration. Hopefully it will improve her kidney function. We will encourage good pulmonary hygiene. I have ordered lab for in the morning. Will continue to follow her closely and treat as needed. #[id number] and [id number] [facility]
[2018-12-22] MEDS ORDERED: SODIUM CHLORIDE 0.9% (FLUSH) 10 ML SYG IV PRN (15:03)
[2018-12-22] MEDS ORDERED: ONDANSETRON INJ 4 MG/2 ML VIAL IV PRN (15:03)
[2018-12-22] MEDS ORDERED: traMADol HCL 50 MG TAB PO PRN (15:08)
[2018-12-22] MEDS ORDERED: IV SET AND CAP CHANGE INJ INJ SCH (15:30)
--- NOTE | 2018-12-22 16:47 | US ---
EXAM DESCRIPTION: Paracentesis CLINICAL HISTORY: 63 years Female Paracentesis planned COMPARISON: None TECHNIQUE: Limited sonography of the abdomen was performed prior to ultrasound-guided paracentesis. FINDINGS: Marked intraperitoneal fluid prior to ultrasound-guided paracentesis. Follow-up imaging following paracentesis revealed minimal intraperitoneal fluid.. IMPRESSION: Ultrasound-guided paracentesis as above. Electronically signed by: Stephanie Shelby MD 12/22/2018 4:44 PM CDT
[2018-12-22] MEDS ORDERED: SODIUM CHLORIDE 0.45% 1000ML 1,000 ML IVS ONE (16:50)
[2018-12-22] MEDS ORDERED: KCL 20MEQ/0.45% NS 1,000 ML IVS ONE (17:03)
[2018-12-22] MEDS ORDERED: LACTULOSE SYRUP 20 GM/30 ML UD ONE (17:03)
[2018-12-22] MEDS: LACTULOSE SYRUP 20 GM/30 ML UD PO SCH (17:05)
[2018-12-22] MEDS ORDERED: HYDROcodone 10MG/APAP 325MG 1 EA TAB ONE (17:52)
[2018-12-22] MEDS ORDERED: MORPHINE SULFATE INJ 10 MG/ML VIAL IV PRN (17:57)
[2018-12-22] MEDS ORDERED: TEMAZEPAM 15 MG CAP PO PRN (18:09)
--- NOTE | 2018-12-22 18:50 | RAD ---
EXAM: XR Chest, 1 View CLINICAL HISTORY: 63 years old and is Female; sob TECHNIQUE: Frontal view of the chest. COMPARISON: 10/14/2018 FINDINGS: Limitations: None. Lungs: There is coarse bilateral basilar atelectasis right greater than left. Pleural space: Unremarkable. No pneumothorax. Heart: Unremarkable. No cardiomegaly. Mediastinum: Unremarkable. Bones/joints: Healing bilateral rib fractures. IMPRESSION: 1. There is coarse bilateral basilar atelectasis right greater than left. 2. Healing bilateral rib fractures. Electronically signed by: Joanna Ponce MD 12/22/2018 6:48 PM CDT
[2018-12-22] MEDS ORDERED: PANTOPRAZOLE SODIUM IV 40 MG VIAL ONE (19:39)
[2018-12-22] MEDS: MELATONIN 3 MG TAB PO SCH (20:47)
[2018-12-22] MEDS: GABAPENTIN 300 MG CAP PO SCH (20:52)
[2018-12-22] MEDS: SERTRALINE HCL 50 MG TAB PO SCH (20:53)
[2018-12-22] MEDS: HYDROcodone 5MG/APAP 325MG 1 EA TAB PO PRN (20:54)
[2018-12-22] MEDS: SODIUM CHLORIDE 0.9% (FLUSH) 10 ML SYG IV SCH (20:55)
[2018-12-22] MEDS ORDERED: guaiFENesin ER TAB 600 MG TAB PO SCH (21:00)
[2018-12-22] MEDS: guaiFENesin ER TAB 600 MG TAB PO SCH (21:07)
[2018-12-23] MEDS: HYDROcodone 5MG/APAP 325MG 1 EA TAB PO PRN ×3 (03:08→18:13)
[2018-12-23] MEDS: PANTOPRAZOLE SODIUM IV 40 MG VIAL IV SCH (06:11)
[2018-12-23] MEDS: amLODIPine BESYLATE 5 MG TAB PO SCH (09:16)
[2018-12-23] MEDS: LACTULOSE SYRUP 20 GM/30 ML UD PO SCH (09:16)
[2018-12-23] MEDS: SODIUM CHLORIDE 0.9% (FLUSH) 10 ML SYG IV SCH ×2 (09:16→20:36)
[2018-12-23] MEDS: FUROSEMIDE 40 MG TAB PO SCH (09:16)
[2018-12-23] MEDS: SPIRONOLACTONE 25 MG TAB PO SCH (09:16)
[2018-12-23] MEDS: guaiFENesin ER TAB 600 MG TAB PO SCH ×3 (09:16→20:38)
[2018-12-23] MEDS ORDERED: LEVALBUTEROL NEBS 1.25 MG/3 ML VIAL NEB PRN (09:55)
[2018-12-23] MEDS: LEVALBUTEROL NEBS 1.25 MG/3 ML VIAL NEB SCH ×3 (12:53→20:03)
--- NOTE | 2018-12-23 20:26 | PN ---
DATE: 12/23/18 SUPERVISING PHYSICIAN: Jan Spence M.D. SUBJECTIVE: The patient is feeling much better than she did yesterday after her paracentesis. Yesterday evening shortly after her paracentesis was completed the patient had right upper quadrant abdominal pain. She said it was 10/10. A chest x-ray was done and it was negative for a pneumothorax. She was given some IV pain medication as well as some IV anti-anxiety. Her pain is much less than it was yesterday and she has transitioned to oral pain medications. We discussed her slightly lower H&H and felt that it may be helpful for her to stay 1 more night so we can wean her off of the pain medications and resume her Tramadol, and she agreed. OBJECTIVE: VITAL SIGNS: Temperature 98.2, T max 24 hours is 99, pulse rate 94, blood pressure 112/73, respiratory rate 20, O2 sat 94% on room air. RESPIRATORY: Essentially clear to auscultation bilaterally. She is slightly diminished more so on the right than on the left, but it is very mild. CARDIAC: Regular rate and rhythm. GASTROINTESTINAL: Abdomen is soft. She is tender over that right upper quadrant where her paracentesis needle was inserted, but there is no rebound tenderness or guarding. Bowel sounds are positive. NEUROLOGIC: She is awake, alert and oriented times three. LABORATORY: WBCs are 10.3, hemoglobin and hematocrit are slightly worse from yesterday at 8.5 and 26.2. She does have a left shift on her differential. Electrolytes are basically within normal limits with the exception of her calcium is slightly low at 8.1. BUN was 23, creatinine has improved to 1.15. Ammonia is improved to 37. AST is 52, ALT 24, alkaline phosphatase 126. Vitamin B12 is 659, serum folate 17.03. Pleural fluid testing is still pending. Chest x-ray from last night shows: 1. There is coarse bilateral basilar atelectasis right greater than left. 2. Healing bilateral rib fractures. All other labs and films have been reviewed via the EMR. ASSESSMENT: 1. Cirrhosis of the liver with ascites. 2. Elevated ammonia. 3. Iron-deficiency anemia. 4. Acute on chronic renal failure. Her baseline creatinine is 1. Her admitting creatinine is 1.43. 5. Mild electrolyte imbalance, mainly hyponatremia and hypokalemia. 6. Elevated liver function tests most likely secondary to #1. 7. Hypertension on medications. 8. Depression on medications. PLAN: We will continue present supportive care. I have discontinued her morphine. We will transition her from [place] to her Tramadol. I will repeat her labs in the morning. She will get her normal dosing of Lactulose today. I have encouraged good pulmonary hygiene. I have added IPPB treatment. Hopefully she can be discharged tomorrow. Will continue to monitor closely and follow as needed. [facility][id number] [facility]
[2018-12-23] MEDS: GABAPENTIN 300 MG CAP PO SCH (20:35)
[2018-12-23] MEDS: MELATONIN 3 MG TAB PO SCH (20:35)
[2018-12-23] MEDS: SERTRALINE HCL 50 MG TAB PO SCH (20:35)
[2018-12-24] MEDS ORDERED: diphenhydrAMINE HCL 50 MG/ML VIAL IV ONE (05:36)
[2018-12-24] MEDS ORDERED: ACETAMINOPHEN 325 MG TAB PO ONE (05:37)
[2018-12-24] MEDS ORDERED: FUROSEMIDE INJ 40 MG/4 ML VIAL IV ONE (05:38)
[2018-12-24] MEDS ORDERED: LACTULOSE SYRUP 20 GM/30 ML UD PO ONE ×2 (06:00→17:14)
[2018-12-24] MEDS: PANTOPRAZOLE SODIUM IV 40 MG VIAL IV SCH (06:03)
[2018-12-24] MEDS ORDERED: SODIUM CHLORIDE 0.9% 500ML 500 ML IVS PRN (06:57)
[2018-12-24] MEDS: SPIRONOLACTONE 25 MG TAB PO SCH (08:53)
[2018-12-24] MEDS: amLODIPine BESYLATE 5 MG TAB PO SCH (08:53)
[2018-12-24] MEDS: FUROSEMIDE 40 MG TAB PO SCH (08:53)
[2018-12-24] MEDS: guaiFENesin ER TAB 600 MG TAB PO SCH ×3 (08:53→20:38)
[2018-12-24] MEDS: SODIUM CHLORIDE 0.9% (FLUSH) 10 ML SYG IV SCH ×2 (08:54→20:46)
[2018-12-24] MEDS: LEVALBUTEROL NEBS 1.25 MG/3 ML VIAL NEB SCH ×4 (09:11→20:16)
[2018-12-24] MEDS ORDERED: FUROSEMIDE INJ 40 MG/4 ML VIAL ONE (10:59)
[2018-12-24] MEDS: HYDROcodone 5MG/APAP 325MG 1 EA TAB PO PRN ×2 (15:28→20:38)
[2018-12-24] MEDS: GABAPENTIN 300 MG CAP PO SCH (20:38)
[2018-12-24] MEDS: SERTRALINE HCL 50 MG TAB PO SCH (20:39)
[2018-12-24] MEDS: MELATONIN 3 MG TAB PO SCH (20:40)
--- NOTE | 2018-12-24 22:09 | PN ---
DATE: 12/24/18 SUPERVISING PHYSICIAN: Jan Spence M.D. SUBJECTIVE: The patient is sitting up in bed. She continues to feel quite weak but she thinks that some blood will help her. She denies any shortness of breath, nausea or vomiting. She does have some right upper quadrant abdominal tenderness, but otherwise she feels she is improving very slowly. She also has complaints of some anxiety and inability to sleep. I explained she needed to ask for her Ativan as I had it ordered for that. OBJECTIVE: VITAL SIGNS: Temperature 98.7, heart rate 87, blood pressure 118/71, respiratory rate 16, O2 sat 98% on room air. RESPIRATORY: Essentially clear to auscultation bilaterally. She is slightly diminished at the bases. CARDIAC: Regular rate and rhythm. GASTROINTESTINAL: Abdomen is soft. It is nondistended. She does have some tenderness in the right upper quadrant around the area of her paracentesis needle insertion. NEUROLOGIC: She is awake, alert and oriented times three. LABORATORY: WBCs are 10,600 with hemoglobin 7.5, hematocrit 22.7. She has a left shift on differential. Potassium is slightly low at 3.3 with carbon dioxide 16, BUN 27, creatinine 1.52, glucose 124. Calcium is slightly low at 8. Liver enzymes are within normal limits. Ammonia is 92. Pleural fluid results are still pending. All other labs and films have been reviewed via the EMR. ASSESSMENT: 1. Cirrhosis of the liver with ascites status post paracentesis with removal of 4,700 mL of yellow pleural fluid. 2. Elevated ammonia. She routinely gets 30 mL of Lactulose daily. Today her ammonia level is up at 92. 3. Iron-deficiency anemia. Hemoglobin this morning is 7.5. She is presently receiving 2 units of packed red blood cells. 4. Acute on chronic renal failure. Her baseline creatinine is 1. Her admitting creatinine is 1.43. 5. Mild electrolyte imbalance. She has received supplementation almost daily. 6. Elevated liver function tests most likely secondary to #1 that have improved. 7. Hypertension on medications. 8. Depression on medications. PLAN: We will continue present supportive care. She is receiving 2 units of packed red blood cells. She got 60 mL of Lactulose this morning and I will redraw an ammonia this afternoon. I have also drawn an ammonia in the morning. She may need to go up to a higher dosing of her routine Lactulose administration as it is presently at 30 mL daily. I have also given her some potassium supplementation. She will have routine lab for in the morning. Hopefully she can be discharged in the next day or two. Will need to continue to monitor her lab on her pleural fluid. She will need a followup with Zahra Whitt at [facility] to followup on all of her labs that will still be pending. Will continue to monitor closely and follow as needed. [id number] [facility]
[2018-12-25] MEDS: PANTOPRAZOLE SODIUM IV 40 MG VIAL IV SCH (06:14)
[2018-12-25] MEDS: LEVALBUTEROL NEBS 1.25 MG/3 ML VIAL NEB SCH ×2 (08:45→11:53)
[2018-12-25] MEDS: SODIUM CHLORIDE 0.9% (FLUSH) 10 ML SYG IV SCH (09:00)
[2018-12-25] MEDS: guaiFENesin ER TAB 600 MG TAB PO SCH (09:00)
[2018-12-25] MEDS: FUROSEMIDE 40 MG TAB PO SCH (09:00)
[2018-12-25] MEDS: amLODIPine BESYLATE 5 MG TAB PO SCH (09:00)
[2018-12-25] MEDS: SPIRONOLACTONE 25 MG TAB PO SCH (09:00)
[2018-12-25 10:45] VITALS: BP 120/68; TEMP 98.9
[2018-12-25 11:56] VITALS: O2SAT 96
[2018-12-25] MEDS ORDERED: LACTULOSE SYRUP 20 GM/30 ML UD PO ONE (12:09)
--- NOTE | 2018-12-25 21:48 | DS ---
SUPERVISING PHYSICIAN: Jim Eugene M.D. ADMISSION DIAGNOSIS: 1. Cirrhosis of the liver with ascites. 2. Elevated ammonia. 3. Iron-deficiency anemia. 4. Acute on chronic renal failure. 5. Electrolyte imbalance. 6. Hypertension. 7. Depression. DISCHARGE DIAGNOSIS: 1. Cirrhosis of the liver with ascites. 2. Elevated ammonia. 3. Iron-deficiency anemia. 4. Acute on chronic renal failure. 5. Electrolyte imbalance. 6. Hypertension. 7. Depression. HOSPITAL COURSE: This is a 63 year-old female who went to her primary care provider's office for followup for abdominal pain and shortness of breath. She has a history of cirrhosis and multiple admissions over the last 6 months. She has also had a paracentesis in the past. At her PCPs office she complained of shortness of breath as well as tightness in the abdomen. Her PCP is Zahra Whitt and she called to discuss directly admitting the patient, and therefore the patient was directly admitted. Dr. Kruger was consulted for paracentesis and did perform a paracentesis with removal of approximately 4700 mL of fluid. Additionally she did have a drop in her hemoglobin and this was treated with 2 units of packed red blood cells. Hemoglobin improved as well as her energy level. Her ammonia level was elevated and she had an increase in her daily Lactulose. Today at discharge she is in stable condition. Due to her continued elevated ammonia level I have increased her dose of Lactulose to 60 per day. All of her medications will stay the same. She will followup with Zahra Whitt as an outpatient. Her diet will remain the same. Activity is as tolerated. [facility][id number] [facility]
== END 2018-12-25 13:58 | disposition home or self-care (01) | DRG 433 ==
LOC: YCFC.O 11:52 → MS 14:35
PROVIDERS: ADMIT Nurse Practitioner Acute Care; ATTEND Family Medicine
PROC: 30233N1 Transfusion of Nonautologous Red Blood Cells into Peripheral Vein, Percutaneous Approach (ICD-10-PCS; principal; 2018-12-24)
DX: K74.60 Unspecified cirrhosis of liver (principal); R18.8 Other ascites; N17.9 Acute kidney failure, unspecified; E87.1 Hypo-osmolality and hyponatremia; E87.6 Hypokalemia; E86.0 Dehydration; D50.9 Iron deficiency anemia, unspecified; F32.9 Major depressive disorder, single episode, unspecified; I12.9 Hypertensive chronic kidney disease with stage 1 through stage 4 chronic kidney disease, or unspecified chronic kidney disease; N18.9 Chronic kidney disease, unspecified; Z88.5 Allergy status to narcotic agent; Z87.891 Personal history of nicotine dependence; Z91.041 Radiographic dye allergy status; Z83.79 Family history of other diseases of the digestive system; Z82.49 Family history of ischemic heart disease and other diseases of the circulatory system; Z80.8 Family history of malignant neoplasm of other organs or systems; Z80.51 Family history of malignant neoplasm of kidney

== ENCOUNTER 2019-01-05 10:54 | Inpatient (IN) | payer SELFPAY ==
--- NOTE | 2019-01-05 11:20 | ED.PDOC ---
History of Present Illness - General Chief Complaint: General Stated Complaint: confusion Time Seen by Provider: 01/05/19 11:03 Source: EMS Exam Limitations: clinical condition - History of Present Illness Initial Comments: Patient presents by EMS after being found on the floor in the restroom by a family friend. It is unknown how long she had been there. She was not conversa tional. Normally she can carry on a conversation. She has had several episodes of AMS before which have been attributed to hyperammonemia as well as anemia. She has a history of alcoholic cirrhosis. There were loose bowel movements evident on the floor of the restroom. Patient told me that she thought that her lactulose was not working well so she took a higher dose than prescribed last night and went to sleep in the restroom because she knew she was going to have loose bowel movements all night. She was conversational with me and said that she had generalized aches and pains. No abdominal pain. No other complaints. Timing/Duration: unsure Severity: moderate Improving Factors: nothing Worsening Factors: nothing Associated Symptoms: other - as in HPI Allergies/Adverse Reactions: Allergies Codeine Allergy (Verified 08/28/18 17:00) Other Causes itching IV Contrast Allergy (Severe, Uncoded 08/28/18 15:44) Anaphylaxis per patient, SOB, throat closes dye Allergy (Uncoded 08/28/18 15:44) Rash Rash and makes her have a burning sensation inside Home Medications: Ambulatory Orders Sertraline HCl [Zoloft] 100 mg PO BEDTIME 04/19/15 Melatonin 20 mg PO BEDTIME 04/26/18 Furosemide Tab [Lasix Tab] 40 mg PO DAILY #30 tab 08/11/18 Gabapentin [Neurontin] 300 mg PO BEDTIME #30 cap 08/11/18 Tramadol HCl 50 mg PO Q6HR PRN 30 Days #120 tab 08/29/18 Guaifenesin [Mucinex] 5 mg PO TID 11/30/18 Amlodipine Besylate 10 mg PO DAILY 12/22/18 Spironolactone 25 mg PO DAILY 12/22/18 Lactulose Syrup [Chronulac] 60 ml PO DAILY 30 Days #60 ud 12/25/18 Potassium Bicarbonate-Citric A [Effer-K 20 Meq] 20 meq PO DAILY 01/05/19 Temazepam [Restoril] 15 mg PO BEDTIME 01/05/19 Review of Systems - Review of Systems Constitutional: States: see HPI EENTM: States: no symptoms reported Respiratory: States: no symptoms reported Cardiology: States: no symptoms reported Gastrointestinal/Abdominal: States: see HPI Genitourinary: States: no symptoms reported Musculoskeletal: States: no symptoms reported Skin: States: no symptoms reported Neurological: States: no symptoms reported Endocrine: States: no symptoms reported, intolerance to heat Past Medical History (General) - Patient Medical History Hx Seizures: No Hx Stroke: No Hx Dementia: No Hx Asthma: No Hx of COPD: No Hx Cardiac Disorders: Yes Hx Congestive Heart Failure: Yes Hx Pacemaker: No Hx Hypertension: Yes Hx Thyroid Disease: No Hx Diabetes: No Hx Gastroesophageal Reflux: Yes - liver cirrohsis Hx Renal Disease: No Hx Cancer: No Hx of HIV: No Hx Hepatitis C: No Hx MRSA: No - Vaccination History Hx Tetanus, Diphtheria Vaccination: Yes Hx Influenza Vaccination: Yes Hx Pneumococcal Vaccination: Yes - Social History Hx Tobacco Use: Yes Hx Alcohol Use: No - 9 months sober Hx Substance Use: No Hx Substance Use Treatment: No Hx Depression: No Hx Physical Abuse: No Hx Emotional Abuse: No Hx Suspected Abuse: No - Female History Patient : No Family Medical History - Family History Mother Family History: Unknown Living Status: Hx Family Asthma: No Hx Family Congestive Heart Failure: No Hx Family Hypertension: No Hx Family Stroke: No Hx Cardiac Disease: Yes Hx Family Diabetes: No Hx Family Cancer: Yes Father Living Status: Hx Family Asthma: No Hx Family Congestive Heart Failure: No Hx Family Hypertension: Yes Hx Family Stroke: Yes Hx Cardiac Disease: No Hx Family Diabetes: No Hx Family Cancer: Yes Physical Exam - Physical Exam General Appearance: Alert Eye Exam: bilateral normal Ears, Nose, Throat: normal ENT inspection Neck: non-tender, full range of motion, supple Respiratory: lungs clear, normal breath sounds Cardiovascular/Chest: regular rate, rhythm, no edema Gastrointestinal/Abdominal: normal bowel sounds, non tender, soft, distended - moderately distended Back Exam: normal inspection, no CVA tenderness Extremity: normal range of motion, non-tender, normal inspection 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: 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, no motor/sensory deficits, alert, normal mood/affect, oriented x 3 Skin Exam: normal color Lymphatic: no adenopathy Progress - Progress Progress: 01/05/19 13:32 Laboratory Tests 01/05/19 01/05/19 01/05/19 10:45 10:45 10:45 WBC 13.4 H RBC 4.87 Hgb 12.8 Hct 38.5 MCV 79.0 L MCH 26.2 L MCHC 33.2 RDW 19.2 H Plt Count 418 H MPV 7.9 Absolute Neuts (auto) 12.10 H Absolute Lymphs (auto) 0.70 L Absolute Monos (auto) 0.50 Absolute Eos (auto) 0.00 Absolute Basos (auto) 0.00 Neutrophils % 90.8 H Lymphocytes % 5.1 L Monocytes % 3.8 Eosinophils % 0.1 L Basophils % 0.2 Sodium 133 L Potassium 4.3 Chloride 95 L Carbon Dioxide 18 L Anion Gap 24.3 H BUN 27 H Creatinine 1.43 H BUN/Creatinine Ratio 18.9 POC Glucose 70 Random Glucose 60 L Serum Osmolality 269.4 L Calcium 9.7 Magnesium Total Bilirubin 1.8 H Direct Bilirubin 0.7 H Indirect Bilirubin 1.1 H AST 107 H ALT 45 Alkaline Phosphatase 187 H Ammonia Creatine Kinase CK-MM (CK-3) CK-MB (CK-2) CK-MB (CK-2) % CK-BB (CK-1) CK and CKMB Interp Troponin I Serum Total Protein 9.5 H Albumin 3.1 L Globulin 6.4 H Albumin/Globulin Ratio 0.5 L TSH Thyroxine (T4) Urine Color Urine Appearance Urine pH Ur Specific [place] Urine Protein Urine Glucose (UA) Urine Ketones Urine Blood Urine Nitrite Urine Bilirubin Urine Urobilinogen Ur Leukocyte Esterase Urine RBC Urine WBC Ur Epithelial Cells Urine Bacteria 01/05/19 01/05/19 01/05/19 11:15 11:27 11:27 WBC RBC Hgb Hct MCV MCH MCHC RDW Plt Count MPV Absolute Neuts (auto) Absolute Lymphs (auto) Absolute Monos (auto) Absolute Eos (auto) Absolute Basos (auto) Neutrophils % Lymphocytes % Monocytes % Eosinophils % Basophils % Sodium Potassium Chloride Carbon Dioxide Anion Gap BUN Creatinine BUN/Creatinine Ratio POC Glucose Random Glucose Serum Osmolality Calcium Magnesium 2.0 Total Bilirubin Direct Bilirubin Indirect Bilirubin AST ALT Alkaline Phosphatase Ammonia 45 H Creatine Kinase 518 H* CK-MM (CK-3) CK-MB (CK-2) 12.6 H* CK-MB (CK-2) % 2.43 CK-BB (CK-1) CK and CKMB Interp Troponin I 0.03 Serum Total Protein Albumin Globulin Albumin/Globulin Ratio TSH 1.97 Thyroxine (T4) 7.80 Urine Color Urine Appearance Urine pH Ur Specific [place] Urine Protein Urine Glucose (UA) Urine Ketones Urine Blood Urine Nitrite Urine Bilirubin Urine Urobilinogen Ur Leukocyte Esterase Urine RBC Urine WBC Ur Epithelial Cells Urine Bacteria 01/05/19 01/05/19 11:27 12:05 WBC RBC Hgb Hct MCV MCH MCHC RDW Plt Count MPV Absolute Neuts (auto) Absolute Lymphs (auto) Absolute Monos (auto) Absolute Eos (auto) Absolute Basos (auto) Neutrophils % Lymphocytes % Monocytes % Eosinophils % Basophils % Sodium Potassium Chloride Carbon Dioxide Anion Gap BUN Creatinine BUN/Creatinine Ratio POC Glucose Random Glucose Serum Osmolality Calcium Magnesium Total Bilirubin Direct Bilirubin Indirect Bilirubin AST ALT Alkaline Phosphatase Ammonia Creatine Kinase CK-MM (CK-3) Cancelled CK-MB (CK-2) CK-MB (CK-2) % CK-BB (CK-1) Cancelled CK and CKMB Interp Cancelled Troponin I Serum Total Protein Albumin Globulin Albumin/Globulin Ratio TSH Thyroxine (T4) Urine Color Yellow Urine Appearance Clear Urine pH 6.0 Ur Specific [place] 1.015 Urine Protein Negative Urine Glucose (UA) Negative Urine Ketones Trace Urine Blood Trace-intact H Urine Nitrite Negative Urine Bilirubin Negative Urine Urobilinogen 0.2 Ur Leukocyte Esterase Negative Urine RBC 0-1 Urine WBC 1-3 Ur Epithelial Cells 0 Urine Bacteria 0 wbc 13.4 with 90.8 segs. Patient did not have abdominal pain. CT showed mild ascites and hepatic cirrhosis. Blood cultures were drawn and Zosyn 3.375 grams started in the E.D. for possible SBP. Admitted by Shira Maxwell. Departure - Departure Clinical Impression: Ascites, Leukocytosis, Hyperammonemia, Elevated creatine kinase Disposition: Admit Patient Condition: Fair Departure Forms: ED Discharge - Pt. Copy, Patient Portal Self Enrollment Diet: other - as per hospitalist Activity: as per physical therapy Referrals: Nancy Chappell NP [Primary Care Provider] - 1-2 Weeks Home Medications: Ambulatory Orders Sertraline HCl [Zoloft] 100 mg PO BEDTIME 04/19/15 Melatonin 20 mg PO BEDTIME 04/26/18 Furosemide Tab [Lasix Tab] 40 mg PO DAILY #30 tab 08/11/18 Gabapentin [Neurontin] 300 mg PO BEDTIME #30 cap 08/11/18 Tramadol HCl 50 mg PO Q6HR PRN 30 Days #120 tab 08/29/18 Guaifenesin [Mucinex] 5 mg PO TID 11/30/18 Amlodipine Besylate 10 mg PO DAILY 12/22/18 Spironolactone 25 mg PO DAILY 12/22/18 Lactulose Syrup [Chronulac] 60 ml PO DAILY 30 Days #60 ud 12/25/18 Potassium Bicarbonate-Citric A [Effer-K 20 Meq] 20 meq PO DAILY 01/05/19 Temazepam [Restoril] 15 mg PO BEDTIME 01/05/19
--- NOTE | 2019-01-05 11:53 | RAD ---
EXAM DESCRIPTION: Chest,1 View CLINICAL HISTORY: 63 years Female, AMS COMPARISON: 12/22/2018. TECHNIQUE: AP portable chest. FINDINGS/IMPRESSION: The lungs are hypoinflated with mild central pulmonary vascular congestion. Mild interval improvement of the right lower lung subsegmental atelectasis. Mild left lung subsegmental atelectasis. No focal consolidation, significant pneumothorax or pleural effusion seen. The heart is normal in size for technique. No acute osseous abnormality. Electronically signed by: Nelson Lagos DO 01/05/2019 11:52 AM CDT
--- NOTE | 2019-01-05 13:23 | CT ---
EXAM DESCRIPTION: Abdoment/Pelvis w/o Contrast CLINICAL HISTORY: 63 years Female, abdominal distension COMPARISON: None available. TECHNIQUE: Contiguous 3 mm axial images were obtained from the lung bases to the level of the proximal femora without the administration of intravenous or oral contrast. Sagittal and coronal reconstructions were reviewed. FINDINGS: Limited evaluation of the solid organs due to the lack of intravenous contrast. THORAX: Mild atelectasis is noted in the bilateral lung bases. LIVER: The liver demonstrates a nodular contour, consistent with cirrhosis. GALLBLADDER: Few gallstones are noted. PANCREAS: Appears normal with no cystic or solid lesions. SPLEEN: Mildly enlarged in size measuring 11.7 x 5.9 cm. ADRENAL GLANDS: Normal with no nodules or masses. KIDNEYS: Both kidneys are symmetric in size and contour with no hydronephrosis or nephrolithiasis or perinephric fluid collections. The visualized ureters appear grossly unremarkable. STOMACH: The stomach is well-distended with no gross abnormality. SMALL BOWEL: The small bowel loops demonstrate variable degrees of distention with no abnormal dilatation or other signs to suggest bowel obstruction. LARGE BOWEL: Multiple diverticula are noted throughout the visualized colon, with no acute inflammation. Constipation is noted as well. The appendix is not seen. No free intraperitoneal air. Moderate volume ascites is noted. RETROPERITONEUM: The abdominal aorta is nonaneurysmal with moderate atherosclerosis. The inferior vena cava is normal in size and caliber. No abnormally enlarged retroperitoneal lymph nodes are identified. URINARY BLADDER: Mildly distended with no gross abnormality. The uterus and ovaries are surgically absent. ADDITIONAL FINDINGS: None. BONES: Mild degenerative changes are identified in the visualized bones. The visualized bones appear osteopenic. Grade 1 anterolisthesis of L4 over L5 and L5 over S1 is noted. Severe right hip osteoarthritis. Small right joint effusion is noted. IMPRESSION: 1. Cirrhosis with mild splenomegaly and ascites. 2. Cholelithiasis. 3. Colonic diverticulosis. This exam was performed according to our departmental dose-optimization program, which includes automated exposure control, adjustment of the mA and/or kV according to patient size and/or use of iterative reconstruction technique. Electronically signed by: Maria R Antonio MD 01/05/2019 1:22 PM CDT
[2019-01-05] MEDS ORDERED: PIPERACILLIN/TAZOBACTAM 3.375 GM in SODIUM CHLORIDE 0.9% 100ML 100 ML IVPB ONE (13:32)
[2019-01-05] MEDS ORDERED: PIPERACILLIN/TAZOBACTAM 3.375 GM VIAL IVPB ONE ×2 (13:33→20:21)
[2019-01-05] MEDS ORDERED: SODIUM CHLORIDE 0.9% 100ML 100 ML IVPB ONE (13:33)
--- NOTE | 2019-01-05 16:25 | HP ---
SUPERVISING PHYSICIAN: Donald Roberto M.D. CHIEF COMPLAINT: Confusion and traumatic fall. HISTORY OF PRESENT ILLNESS: This is a 63 year-old female patient who was found on the floor of her restroom by her [id number]. It is unknown how long she was down in the floor. She has a longstanding history of alcoholic cirrhosis. She does take Lactulose on a regular basis. Her usually is her caregiver and he is in [place] in the hospital for a hernia repair. The patient says the last thing she remembers is that she was having diarrhea after taking her Lactulose. She fell against the wall times 2 and then her arm got hung underneath her. She had been having some weakness, diarrhea and cramping. The next thing she remembers is that her [id number] was knocking on the door. He came in. EMS was called and she came to the Emergency Room. She was actually in the hospital about 2 weeks ago for paracentesis and Dr. Donald Kruger, general surgeon, removed about 4,700 mL of clear fluid from her abdomen. In the E. R., her initial vital signs were temperature 96, heart rate 93, blood pressure 98/69, heart rate 20, O2 sat 94%. Laboratory studies were done and it showed a WBC of 13.4 with hemoglobin 12.8, hematocrit 38.5. She did have a left shift on her differential. Sodium 133, potassium 4.3, chloride 95, carbon dioxide 18, BUN 27, creatinine 1.43. Baseline creatinine is about 1. Glucose 70, calcium 9.7, magnesium 2. Total bilirubin 1.8, direct 0.7, indirect 1.1. AST 107, ALT 45, alkaline phosphatase 187. Ammonia 45, creatinine kinase 518, serum total protein 9.5, albumin 3.1, globulin 6.4, TSH 1.97, thyroxine 7.8. Urinalysis was unremarkable. Blood cultures were drawn. Chest x-ray showed the lungs hyperinflated with mild central pulmonary vascular congestion, mild interval improvement over the right lower lung, mild left subsegmental atelectasis. No focal consolidations, significant pneumothorax or pleural effusion seen. The heart is normal in size for technique. No acute osseous abnormality. Abdomen and pelvis CT shows: 1. Cirrhosis with mild splenomegaly and ascites. 2. Cholelithiasis. 3. Colonic diverticulosis. She was given some fluids and started on Zosyn. I was called for hospital admission. PAST MEDICAL HISTORY: 1. Depression. 2. Hypertension. 3. Alcoholic cirrhosis. 4. Chronic anemia. PAST SURGICAL HISTORY: 1. Hysterectomy. 2. Right renal artery aneurysm repair. 3. Tonsillectomy and adenoidectomy. CURRENT MEDICATIONS: 1. Amlodipine. 2. Potassium. 3. Furosemide. 4. Gabapentin. 5. Lactulose. 6. Sertraline. 7. Spironolactone. 8. Temazepam. 9. Tramadol. 10. Xifaxan. ALLERGIES: IV CONTRAST AND CODEINE. FAMILY HISTORY: Positive for kidney cancer, chronic obstructive pulmonary disease, coronary artery disease, liver failure, anemia, congestive heart failure and thyroid cancer. SOCIAL HISTORY: She lives in [place]. She is . She is retired. She smoked a pack and a half of cigarettes for 20 years, but quit about 10 years ago. She quit drinking alcoholic beverages approximately 9 months ago. She denies any illicit drug use. REVIEW OF SYSTEMS: Negative for fevers, chills, weight loss. HEENT: Negative for vision changes, ear pain, sinus symptoms, sore throat. RESPIRATORY: Negative for shortness of breath, coughing or wheezing. CARDIOVASCULAR: Negative for chest pains, palpitations or tachycardia. GASTROINTESTINAL: Positive for abdominal cramping, weakness, diarrhea with a few bouts of vomiting. Negative for constipation. GENITOURINARY: Negative for polyuria, dysuria or hematuria. MUSCULOSKELETAL: Negative for arthralgias and myalgias. HEMATOLOGIC: Positive for easy bruising. SKIN: Positive for bruising and multiple skin tears over her arms, hips and bilateral shoulders mostly due to the traumatic fall. NEUROLOGIC: Positive for weakness. Negative for headaches or seizures. PHYSICAL EXAMINATION: VITAL SIGNS: Temperature 97.1, heart rate 92, blood pressure 110/68, respiratory rate 18, O2 sat 94%. GENERAL: This is a 63 year-old female patient lying in her hospital bed. She looks to be in moderate pain, but she is in no acute respiratory distress. HEENT: Normocephalic. She does have several ecchymotic areas on her face from the fall. She has a bruise and tear to the middle of her upper lip. Pupils are equal and reactive. Oropharynx is clear. NECK: Supple without mass. RESPIRATORY: Diminished at the bases but essentially clear to auscultation. CHEST: There is equal rise and fall of the chest with inspiration and expiration. CARDIOVASCULAR: Regular rate and rhythm. GASTROINTESTINAL: Abdomen is soft. It is rounded. There is ascites to the abdomen more prominently to the right side. Bowel sounds are positive. GENITOURINARY: Deferred. EXTREMITIES: No clubbing, cyanosis or edema. She does have multiple skin tears and ecchymotic areas on her bilateral arms and bilateral legs. NEUROLOGIC: She is awake, alert and oriented times three. LABORATORY: Labs and films are as per the history of present illness. ASSESSMENT: 1. SIRS of unknown etiology with a heart rate of 93, WBCs of 13,400 and mildly hypotensive on admission. 2. 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 3. Traumatic same level fall most likely secondary to #2. 4. Alcoholic cirrhosis of the liver with ascites. She recently had a paracentesis that withdrew approximately 5 liters of fluid about 2 weeks ago. 5. Elevated ammonia. 6. Hyperbilirubinemia. 7. Elevated CPK most likely being due to her being down on the floor for an unknown amount of time. PLAN: I have admitted the patient to the hospital. I will continue the fluids as well as the Zosyn that was started in the Emergency Room. Will monitor her cultures as they become available. I will recheck her lab in the morning, including an ammonia. She will continue with her Lactulose as previously ordered. Will do wound care on her injuries from her fall. Will also do neuro checks. She has pain medications. I have restarted her home medications. She has aggressive pulmonary hygiene. I have also x-rayed both of her shoulders and he right hip due to complaints of pain from her fall. I have also ordered Night Nurse consultation. She is unsafe to go home until her returns and I am not sure at that point that he will be able to take care of her for some time. Will continue to monitor closely and follow as needed. [facility][id number] [facility]
[2019-01-05] MEDS ORDERED: FLUCONAZOLE 150 MG TAB PO ONE (17:24)
[2019-01-05] MEDS ORDERED: SODIUM CHLORIDE 0.9% 1000ML 1,000 ML IVS ONE (17:26)
[2019-01-05] MEDS ORDERED: SODIUM CHLORIDE 0.9% (FLUSH) 10 ML SYG IV PRN (17:29)
[2019-01-05] MEDS ORDERED: LEVALBUTEROL NEBS 1.25 MG/3 ML VIAL NEB PRN (17:29)
[2019-01-05] MEDS ORDERED: HYDROcodone 5MG/APAP 325MG 1 EA TAB PO PRN (17:29)
[2019-01-05] MEDS ORDERED: ONDANSETRON INJ 4 MG/2 ML VIAL IV PRN (17:29)
[2019-01-05] MEDS ORDERED: PIPERACILLIN/TAZOBACTAM 3.375 GM in SODIUM CHLORIDE 0.9% 100ML 100 ML IVPB SCH (17:30)
[2019-01-05] MEDS: IV SET AND CAP CHANGE INJ INJ SCH (17:59)
--- NOTE | 2019-01-05 19:05 | RAD ---
EXAM DESCRIPTION: Shoulder,Left 2 or More Views CLINICAL HISTORY: trauma COMPARISON: None FINDINGS: Two x-ray views of the left shoulder were submitted. There is no acute fracture or dislocation. Decreased bone mineralization compatible with osteopenia. There is a nonhealed fracture of the lateral left seventh and eighth rib. Old rib fractures also visualized. There is no radiopaque foreign body material. IMPRESSION: Nonhealed left rib fractures of unknown age. Electronically signed by: Dioni Whiting MD 01/05/2019 7:03 PM CDT
--- NOTE | 2019-01-05 19:06 | RAD ---
EXAM DESCRIPTION: Hip,Right 2 Views CLINICAL HISTORY: trauma COMPARISON: None FINDINGS: Two x-ray views of the right hip were submitted. There is no acute fracture or dislocation. There is narrowing of the superolateral aspect of the right hip joint. Decreased bone mineralization compatible with osteopenia. Linear metallic opacity/possible surgical clip projects at the level of the pelvis. IMPRESSION: No acute fracture or dislocation. Electronically signed by: Dioni Whiting MD 01/05/2019 7:05 PM CDT
--- NOTE | 2019-01-05 19:09 | RAD ---
EXAM DESCRIPTION: Shoulder,Right 2 or More Views CLINICAL HISTORY: trauma COMPARISON: None FINDINGS: Two x-ray views of the right shoulder were submitted. There is a subacute fracture of the fifth lateral right rib, posterior sixth, seventh and eighth right ribs. Humeral head is of normal contour without evidence of acute fracture or dislocation. Bandlike opacity at the right lower lung may represent scar versus subsegmental atelectasis. There is no radiopaque foreign body material. IMPRESSION: Subacute right rib fractures. Electronically signed by: Dioni Whiting MD 01/05/2019 7:07 PM CDT
[2019-01-05] MEDS ORDERED: LEVALBUTEROL NEBS 1.25 MG/3 ML VIAL INH SCH (20:00)
[2019-01-05] MEDS ORDERED: SODIUM CHL 0.9% 100ML MINI-BAG 100 ML IVPB ONE (20:20)
[2019-01-05] MEDS: PIPERACILLIN/TAZOBACTAM 3.375 GM in SODIUM CHLORIDE 0.9% 100ML 100 ML IVPB SCH (20:25)
[2019-01-05] MEDS: TEMAZEPAM 15 MG CAP PO SCH (20:27)
[2019-01-05] MEDS: GABAPENTIN 300 MG CAP PO SCH (20:27)
[2019-01-05] MEDS: NYSTATIN POWDER 15GM BTTL TOP SCH (20:27)
[2019-01-05] MEDS: SERTRALINE HCL 50 MG TAB PO SCH (20:27)
[2019-01-05] MEDS: SODIUM CHLORIDE 0.9% (FLUSH) 10 ML SYG IV SCH (20:28)
[2019-01-06] MEDS ORDERED: SODIUM CHL 0.9% 100ML MINI-BAG 100 ML IVPB ONE (03:02)
[2019-01-06] MEDS ORDERED: PIPERACILLIN/TAZOBACTAM 3.375 GM VIAL IVPB ONE ×3 (03:02→19:13)
[2019-01-06] MEDS: PIPERACILLIN/TAZOBACTAM 3.375 GM in SODIUM CHLORIDE 0.9% 100ML 100 ML IVPB SCH ×3 (03:46→19:49)
[2019-01-06] MEDS ORDERED: KCL 20MEQ/D5 1/2NS 1,000 ML IVS PRN (08:12)
[2019-01-06] MEDS ORDERED: PANTOPRAZOLE SODIUM IV 40 MG VIAL IV SCH (08:30)
[2019-01-06] MEDS: LACTULOSE SYRUP 20 GM/30 ML UD PO SCH (09:15)
[2019-01-06] MEDS: FUROSEMIDE 40 MG TAB PO SCH (09:15)
[2019-01-06] MEDS: NYSTATIN POWDER 15GM BTTL TOP SCH ×5 (09:15→20:53)
[2019-01-06] MEDS: SODIUM CHLORIDE 0.9% (FLUSH) 10 ML SYG IV SCH ×2 (09:15→20:45)
[2019-01-06] MEDS: SPIRONOLACTONE 25 MG TAB PO SCH (09:15)
[2019-01-06] MEDS: LEVALBUTEROL NEBS 1.25 MG/3 ML VIAL NEB SCH ×4 (09:37→19:19)
[2019-01-06] MEDS ORDERED: SODIUM CHLORIDE 0.9% 100ML 100 ML IVPB ONE ×2 (11:28→19:14)
[2019-01-06] MEDS ORDERED: KCL 20MEQ/D5 1/2NS 1,000 ML IVS ONE (11:36)
--- NOTE | 2019-01-06 14:24 | PN ---
DATE: 01/06/19 SUPERVISING PHYSICIAN: Donald Roberto M.D. SUBJECTIVE: The patient is sitting up in bed. She feels much stronger. She still has pain all over and was unable to do her physical therapy today, but she does feel better. There is no shortness of breath, nausea or vomiting. OBJECTIVE: VITAL SIGNS: Temperature 98.6, heart rate 81, blood pressure 124/55. She did have a blood pressure overnight of 89/50. Respiratory rate 18, O2 sat has been as low as 88%. It is now 95% on 2 liters nasal cannula. Her heart rate has been as high as 94. RESPIRATORY: Diminished at the bases, otherwise essentially clear to auscultation. CARDIAC: Regular rate and rhythm. GASTROINTESTINAL: Abdomen is rounded. It is slightly firm. It is diffusely tender. Bowel sounds are hypoactive. There is no rebound tenderness or guarding. EXTREMITIES: She has multiple ecchymotic areas over bilateral arms, but there is no drainage or open wounds noted. She also has multiple lacerations to both upper extremities. NEUROLOGIC: She is awake, alert and oriented times three. LABORATORY: WBCs have improved to 7,400 with hemoglobin 9.2, hematocrit 27.9, platelets 213. Electrolytes are basically within normal limits. BUN 28, creatinine 1.53. Bilirubin 1.3, AST 67, ALT 31, alkaline phosphatase 112. Ammonia 46, creatinine kinase is down to 217. Preliminary blood cultures are negative to date. Bilateral shoulder x-rays show no acute fracture. Hip x-ray shows no acute fracture. Right shoulder x-ray also shows subacute right rib fractures. All other labs and films have been reviewed via the EMR. ASSESSMENT: 1. SIRS of unknown etiology with a heart rate of 93, WBCs of 13,400 and mildly hypotensive on admission. 2. 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 3. Traumatic same level fall most likely secondary to #2. 4. Alcoholic cirrhosis of the liver with ascites. She recently had a paracentesis that withdrew approximately 5 liters of fluid about 2 weeks ago. 5. Elevated ammonia. 6. Hyperbilirubinemia. 7. Elevated CPK most likely being due to her being down on the floor for an unknown amount of time. 8. Anemia of unknown etiology. It is microcytic hypochromic in presentation. PLAN: We will continue present supportive care. I have added DVT prophylaxis as well as a PPI for ulcer prophylaxis. I have given her additional fluids at a lower rate. I will recheck her lab in the morning. She has started on her home medications, so hopefully her ammonia will be down some although her mental status is good today. Will continue to monitor closely and follow as needed. #[id number] [facility]
[2019-01-06] MEDS: TEMAZEPAM 15 MG CAP PO SCH (20:45)
[2019-01-06] MEDS: ENOXAPARIN SODIUM 30 MG/0.3 ML SYG SUBCU SCH (20:45)
[2019-01-06] MEDS: SERTRALINE HCL 50 MG TAB PO SCH (20:45)
[2019-01-06] MEDS: GABAPENTIN 300 MG CAP PO SCH (20:45)
[2019-01-06] MEDS: HYDROcodone 5MG/APAP 325MG 1 EA TAB PO PRN (20:48)
[2019-01-07] MEDS ORDERED: PIPERACILLIN/TAZOBACTAM 3.375 GM VIAL IVPB ONE ×4 (03:36→19:59)
[2019-01-07] MEDS ORDERED: SODIUM CHLORIDE 0.9% 100ML 100 ML IVPB ONE ×4 (03:37→19:59)
[2019-01-07] MEDS: PIPERACILLIN/TAZOBACTAM 3.375 GM in SODIUM CHLORIDE 0.9% 100ML 100 ML IVPB SCH ×3 (03:38→20:20)
[2019-01-07] MEDS: PANTOPRAZOLE SODIUM TAB 40 MG PO SCH (06:11)
[2019-01-07] MEDS: LEVALBUTEROL NEBS 1.25 MG/3 ML VIAL NEB SCH ×4 (07:54→20:30)
[2019-01-07] MEDS: FUROSEMIDE 40 MG TAB PO SCH (08:39)
[2019-01-07] MEDS: SPIRONOLACTONE 25 MG TAB PO SCH (08:39)
[2019-01-07] MEDS: SODIUM CHLORIDE 0.9% (FLUSH) 10 ML SYG IV SCH ×2 (08:39→20:21)
[2019-01-07] MEDS: NYSTATIN POWDER 15GM BTTL TOP SCH ×4 (08:39→20:29)
[2019-01-07] MEDS: LACTULOSE SYRUP 20 GM/30 ML UD PO SCH (08:39)
[2019-01-07] MEDS: HYDROcodone 5MG/APAP 325MG 1 EA TAB PO PRN (08:40)
[2019-01-07] MEDS ORDERED: POTASSIUM CHLORIDE 20 MEQ TAB PO ONE (09:51)
[2019-01-07] MEDS: HYDROcodone 7.5MG/APAP 325MG 1 EA TAB PO PRN ×2 (13:42→19:41)
[2019-01-07] MEDS ORDERED: MORPHINE SULFATE INJ 10 MG/ML VIAL IV ONE (15:22)
[2019-01-07] MEDS: ENOXAPARIN SODIUM 30 MG/0.3 ML SYG SUBCU SCH (20:20)
[2019-01-07] MEDS: SERTRALINE HCL 50 MG TAB PO SCH (20:21)
[2019-01-07] MEDS: TEMAZEPAM 15 MG CAP PO SCH (20:21)
[2019-01-07] MEDS: GABAPENTIN 300 MG CAP PO SCH (20:21)
--- NOTE | 2019-01-07 21:46 | PN ---
DATE: 01/07/19 SUPERVISING PHYSICIAN: Donald Roberto M.D. SUBJECTIVE: The patient is sitting up in her chair eating her breakfast. She continues to feel very weak but denies shortness of breath, nausea, vomiting or diarrhea. She continues to be very sore all over, especially in the areas of trauma. We discussed her x-ray results. She is planning to most likely move to [place] and live with her daughter as she realizes she can no longer take care of herself. OBJECTIVE: VITAL SIGNS: Temperature 98.7, heart rate 82, blood pressure 110/67, respiratory rate 20, O2 sat 97% on room air. RESPIRATORY: Diminished at the bases, otherwise clear to auscultation. CARDIAC: Regular rate and rhythm. GASTROINTESTINAL: Abdomen is soft. It is rounded. There is some noted ascites. It is slightly tender to palpation but that is diffuse tenderness. Bowel sounds are positive. SKIN: She has multiple ecchymotic areas on both shoulders. Bilateral arms have ecchymosis from her previous trauma at home, but are all healing well. There is no drainage or fluctuance noted. NEUROLOGIC: She is awake, alert and oriented times three. LABORATORY: WBCs have normalized to 7,500 with hemoglobin 9.3, hematocrit 28.2. Neutrophils are normal at 77.3%. Electrolytes show low potassium of 3, calcium 7.9. AST 64, ammonia 35. Preliminary blood cultures show no growth after 48 hours. All other labs and films have been reviewed via the EMR. ASSESSMENT: 1. SIRS of unknown etiology with a heart rate of 93, WBCs of 13,400 and mildly hypotensive on admission. The patient is currently on Zosyn. 2. 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 3. Traumatic same level fall most likely secondary to #2. 4. Alcoholic cirrhosis of the liver with ascites. She recently had a paracentesis that withdrew approximately 5 liters of fluid about 2 weeks ago. 5. Elevated ammonia. 6. Hyperbilirubinemia. 7. Elevated CPK most likely being due to her being down on the floor for an unknown amount of time. PLAN: We will continue present supportive care. I have given her some potassium supplementation. Recheck her labs in the morning. Her pain medications have been adjusted up as she is not having very good relief with her [place]. She continues complaints of that right hip, so tomorrow I will have a CT of that right hip/pelvis area done. Her is in the hospital in [place] for a hernia surgery. She is unable to take care of herself at home, so [employer] Merchandising Director has been consulted. She may need help with moving to [place]. Her daughter is going back and forth between [place] and [place] at this time to see about the patient's . When we can have a good discharge plan, will continue to monitor closely and follow as needed. #[id number] [facility]
[2019-01-08] MEDS: PIPERACILLIN/TAZOBACTAM 3.375 GM in SODIUM CHLORIDE 0.9% 100ML 100 ML IVPB SCH ×3 (04:14→19:57)
[2019-01-08] MEDS: PANTOPRAZOLE SODIUM TAB 40 MG PO SCH (06:00)
[2019-01-08] MEDS ORDERED: PIPERACILLIN/TAZOBACTAM 3.375 GM VIAL IVPB ONE ×3 (07:21→19:28)
[2019-01-08] MEDS ORDERED: SODIUM CHLORIDE 0.9% 100ML 100 ML IVPB ONE ×3 (07:21→19:29)
[2019-01-08] MEDS: LEVALBUTEROL NEBS 1.25 MG/3 ML VIAL NEB SCH ×4 (07:56→20:48)
[2019-01-08] MEDS: SODIUM CHLORIDE 0.9% (FLUSH) 10 ML SYG IV SCH ×2 (09:00→19:57)
[2019-01-08] MEDS: FUROSEMIDE 40 MG TAB PO SCH (10:14)
[2019-01-08] MEDS: LACTULOSE SYRUP 20 GM/30 ML UD PO SCH (10:15)
[2019-01-08] MEDS: SPIRONOLACTONE 25 MG TAB PO SCH (10:15)
[2019-01-08] MEDS: HYDROcodone 7.5MG/APAP 325MG 1 EA TAB PO PRN ×2 (10:16→17:11)
[2019-01-08] MEDS: NYSTATIN POWDER 15GM BTTL TOP SCH ×4 (10:30→20:02)
--- NOTE | 2019-01-08 14:17 | CT ---
EXAM DESCRIPTION: Pelvis: Computed Tomography. CLINICAL HISTORY: pelvic trauma right side COMPARISON: CT scan of the abdomen and pelvis without contrast 01/05/2019. TECHNIQUE: Spiral-axial scans 2.5 x 2.5 mm intervals through the pelvis: no water soluble barium contrast; no IV contrast. Coronal and sagittal 2.0 mm reconstructions. Total Exam DLP: 645.61 mGy-cm. This exam was performed according to our departmental CT dose-optimization program which includes automated exposure control, adjustment of the mA and/or kV according to patient size and/or use of iterative reconstruction technique; to reduce radiation dose to as low as reasonably achievable (ALARA). FINDINGS: Pelvic Organs: Partial visualization of liver kidneys spleen, pancreas. Also partial visualization of the gallbladder which contains small calcification or radiodense stones. Mesentery: Ascites in the peritoneal space displacing the liver spleen and bowel to the midline and anterior. Has increased since the prior study.. Aorta: Again noted is a tubular-shaped structure which appears to originate from the infrarenal abdominal aorta several centimeters above the bifurcation at the L3 level and courses superiorly and to the right passing inferior to the superior vena cava and terminating inferior to the right renal pelvis and right renal vein and anterior to the proximal right ureter. Stable since the prior study. Most likely a thrombosed artery. Remainder of the aorta shows moderate atherosclerotic calcification and luminal narrowing. Small Bowel: Included segments containing gas and air with no obstruction. Stable since the prior study. Terminal Ileum: Normal caliber and surrounded by fluid. Cecum: Normal caliber and containing gas. Appendix has a thickened appearance, directed superiorly on the medial aspect of the cecum, but not containing gas. Surrounded by fluid. Colon: Multiple diverticula distally with distention of the rectum by gas. Minimal fecal material. Diverticula in the sigmoid colon with no evidence of complications. Spine and Bony Pelvis: Advanced arthrosis and joint space loss with remodeling of the right hip. Intimal arthrosis left hip bilateral SI joints and pubic symphysis. Levoscoliosis and minimal spondylosis lumbar spine. Inguinal Canals: Containing fat but no fluid or bowel. Pelvic Wall/Back Soft Tissues: Edema in the anterior bowel wall. Thinning of the midline [place] with no definite hernia. IMPRESSION: 1. Abdominal pelvic ascites which has increased since the prior study with more mass effect on bowel, liver, and spleen. Liver spleen pancreas kidneys are partially visualized. 2. No bowel obstruction with bowel stasis in the small bowel. Mostly fluid and gas and minimal fecal material in the colon. Dilated appendix with thickened [place] containing no gas compared to the prior study. Terminal ileum unremarkable. Electronically signed by: Artur Santos MD 01/08/2019 2:16 PM CDT
[2019-01-08] MEDS: IV SET AND CAP CHANGE INJ INJ SCH (17:23)
--- NOTE | 2019-01-08 19:14 | PN ---
DATE: 01/08/19 SUPERVISING PHYSICIAN: Erasmo Corea M.D. SUBJECTIVE: The patient states she still has some pain and feels like her abdomen is swelling more. She does have a history of a paracentesis in the past, however she is in no distress at this time. OBJECTIVE: Blood pressure 118/71, heart rate 77, respiratory rate 18, temperature 97.8, oxygen saturation 94%. GENERAL: Ms. Matthews is a 63 year-old female who is in no active distress currently. NEUROLOGIC: The patient is alert and oriented. LUNGS: Diminished in the bases, but otherwise clear to auscultation bilaterally. CARDIOVASCULAR: Regular rate and rhythm. Normal S1 and S2. ABDOMEN: Slightly distended but soft, but definitely has ascites. EXTREMITIES: Lower extremities with no edema. LABORATORY: White count 6.6, hemoglobin 9.5, hematocrit 29.1, platelet count 184. Chemistry shows sodium 132, potassium 3.4, chloride 103, CO2 is 17, BUN 28, creatinine 1.49, calcium 7.7. Albumin 2.0. She did have a pelvic CT today which showed ascites but abnormalities. ASSESSMENT: 1. Systemic Inflammatory Response Syndrome of unknown etiology which has improved. 2. Hepatic encephalopathy which has improved. 3. Traumatic fall secondary to #2. 4. Alcoholic cirrhosis with frequent ascites requiring paracentesis in the past. 5. Hyperammonemia. 6. Hyperbilirubinemia. PLAN: At this point, the SIRS seems to have resolved. She still has significant pain as well as she is having an increase in the fluid in her abdomen. At this point, her is being discharged from [place], but unable to really care for her. So we are going to evaluate for an LTAC type situation until she can relocate to [place] to live near her daughter. Will continue current therapy at this time. Reevaluate her abdomen tomorrow. We may need to repeat a paracentesis prior to discharge. [facility][id number] [facility]
[2019-01-08] MEDS: TEMAZEPAM 15 MG CAP PO SCH (20:01)
[2019-01-08] MEDS: SERTRALINE HCL 50 MG TAB PO SCH (20:01)
[2019-01-08] MEDS: ENOXAPARIN SODIUM 30 MG/0.3 ML SYG SUBCU SCH (20:01)
[2019-01-08] MEDS: GABAPENTIN 300 MG CAP PO SCH (20:01)
[2019-01-09] MEDS ORDERED: PIPERACILLIN/TAZOBACTAM 3.375 GM VIAL IVPB ONE ×2 (03:36→11:24)
[2019-01-09] MEDS ORDERED: SODIUM CHLORIDE 0.9% 100ML 100 ML IVPB ONE ×2 (03:36→11:24)
[2019-01-09] MEDS: PIPERACILLIN/TAZOBACTAM 3.375 GM in SODIUM CHLORIDE 0.9% 100ML 100 ML IVPB SCH ×2 (04:25→12:00)
[2019-01-09] MEDS: HYDROcodone 7.5MG/APAP 325MG 1 EA TAB PO PRN ×2 (06:09→17:04)
[2019-01-09] MEDS: PANTOPRAZOLE SODIUM TAB 40 MG PO SCH (06:09)
[2019-01-09] MEDS: LEVALBUTEROL NEBS 1.25 MG/3 ML VIAL NEB SCH ×2 (08:52→14:45)
[2019-01-09] MEDS: SODIUM CHLORIDE 0.9% (FLUSH) 10 ML SYG IV SCH (09:11)
[2019-01-09] MEDS: SPIRONOLACTONE 25 MG TAB PO SCH (09:12)
[2019-01-09] MEDS: LACTULOSE SYRUP 20 GM/30 ML UD PO SCH (09:12)
[2019-01-09] MEDS: FUROSEMIDE 40 MG TAB PO SCH (09:12)
[2019-01-09] MEDS: NYSTATIN POWDER 15GM BTTL TOP SCH ×2 (09:13→12:52)
[2019-01-09 14:11] VITALS: BP 114/75; TEMP 98.3; O2SAT 96
--- NOTE | 2019-01-09 20:27 | DS ---
SUPERVISING PHYSICIAN: Erasmo Corea M.D. ADMISSION DIAGNOSIS: 1. SIRS of unknown etiology. 2. Hepatic encephalopathy. 3. Traumatic same level fall. 4. Alcoholic cirrhosis with ascites. 5. Hyperammonemia. 6. Elevated CPK. DISCHARGE DIAGNOSIS: 1. SIRS of unknown etiology. 2. Hepatic encephalopathy. 3. Traumatic same level fall. 4. Alcoholic cirrhosis with ascites. 5. Hyperammonemia. 6. Elevated CPK. HOSPITAL COURSE: This is a 53 year-old female who was found on the floor of her restroom by her [id number]. It is really unknown how long she was on the floor. She has a longstanding history of alcoholic cirrhosis and takes Lactulose to keep her ammonia level down. Her , who is her primary caregiver, is actually in [place] for hernia repair, but no one was helping her at the time. Apparently she had a lot of falling while he was gone having the hernia repair. She was brought to the Emergency Room and evaluated. She was confused and basically was admitted for hepatic encephalopathy along with her meeting SIRS criteria. She was placed on antibiotics but there were no consistent findings for an infectious process. Antibiotics were discontinued. She remained afebrile and slowly improved once her medications were given as scheduled. She has significant muscle disuse myopathy. She has significant weakness and does participate in physical therapy, but has difficulty caring for herself. Due to her improvement, she has been evaluated for discharge but cannot go home as she is unsafe to care for herself, therefore she is going to be discharged to a rehab facility in [place] closer to her daughter. Activity as per Physical Therapy at the rehab facility. I have written for her which medications need to be continued. Diet is regular diet as well. [id number] [facility]
== END 2019-01-09 17:55 | DRG 442 ==
LOC: SUPCPDRO 10:54 → ER 10:54 → MS 16:22
PROVIDERS: ADMIT Nurse Practitioner Acute Care; ATTEND Nurse Practitioner
DX: K72.90 Hepatic failure, unspecified without coma (principal); E72.20 Disorder of urea cycle metabolism, unspecified; R65.10 Systemic inflammatory response syndrome (SIRS) of non-infectious origin without acute organ dysfunction; K70.31 Alcoholic cirrhosis of liver with ascites; R74.8 Abnormal levels of other serum enzymes; F32.9 Major depressive disorder, single episode, unspecified; D64.9 Anemia, unspecified; I10 Essential (primary) hypertension; Z79.891 Long term (current) use of opiate analgesic; Z91.041 Radiographic dye allergy status; Z88.5 Allergy status to narcotic agent; Z87.891 Personal history of nicotine dependence